=== PATIENT | female | born 1960 | race African-American/Black ===

== ENCOUNTER 2017-03-05 19:43 | Emergency (ER) | payer OTHER ==
[2017-03-05 20:05] VITALS: BP 146/76; PULSE 91; TEMP 98.3; BMI 31.4
--- NOTE | 2017-03-05 21:41 | PDOC ---
History of Present Illness - General Chief Complaint: Injury Stated Complaint: PAIN Time Seen by Provider: 03/05/17 21:10 History Source: Patient Exam Limitations: No Limitations - History of Present Illness Initial Comments: 03/05/17 21:41 Patient states fell last week and we injured right third digit. States as a child sustained a significant laceration and became infected with osteomyelitis. Patient has already deformity to that third digit. States last week when she fell became ecchymotic and swollen but did not feel needed medical attention. States has not resolved it came for evaluation tonight. Occurred: reports: last week Severity: reports: mild, moderate Pain Location: reports: upper extremity (rihgth 3rd digit) Modifying Factors: improves with: None Past History - Travel Traveled outside of the country in the last 30 days: No Close contact w/someone who was outside of country & ill: No - Past Medical History Allergies/Adverse Reactions: Allergies Allergy/AdvReac Type Severity Reaction Status Date / Time ketorolac tromethamine Allergy hives Unverified 07/20/14 12:11 [From Toradol] Home Medications: Ambulatory Orders Cetirizine HCl 10 mg PO ASDIR 09/14/14 Clotrimazole/Betamet Diprop [Lotrisone -] 15 gm TP ASDIR 09/14/14 Fluticasone Prop 0.05% Nasal [Flonase -] 1 spray NS BID #1 spray 09/14/14 Gabapentin 300 mg PO ASDIR capsule 09/14/14 Glipizide 5 gm MC ASDIR 09/14/14 Imipramine HCl [Tofranil] 10 mg PO ASDIR tablet 09/14/14 Levothyroxine Sodium 5 gm MC ASDIR 09/14/14 Lisinopril 2.5 mg PO DAILY #7 tablet 09/14/14 Morphine *Sr* [Ms Contin -] 15 mg PO ASDIR 09/14/14 Olopatadine HCl 0.1% Ophth Clemencia [Patanol (Nf)] 5 ml OP ASDIR 09/14/14 Pioglitazone HCl [Actos] 15 mg PO ASDIR tablet 09/14/14 Simvastatin [Zocor] 5 mg PO ASDIR tablet 09/14/14 Diabetes: Yes HTN: Yes - Psycho/Social/Smoking Cessation Hx Suicidal Ideation: No Smoking History: Never smoked Have you smoked in the past 12 months: No Information on smoking cessation initiated: No Hx Alcohol Use: No Drug/Substance Use Hx: No Review of Systems - Review of Systems Able to Perform ROS?: Yes Is the patient limited Venezuelan proficient: Yes Constitutional: Yes: See HPI. No: Symptoms Reported, Fever, Malaise HEENTM: No: Symptoms Reported Musculoskeletal: Yes: Symptoms Reported, See HPI, Joint Swelling, Muscle Pain, Joint Stiffness Integumentary: Yes: Symptoms Reported, See HPI, Bruising Neurological: No: Symptoms reported All Other Systems: Reviewed and Negative *Physical Exam - Vital Signs Last Vital Signs Temp Pulse Resp BP Pulse Ox 98.3 F 91 H 19 146/76 100 03/05/17 20:03 03/05/17 20:03 03/05/17 20:03 03/05/17 20:03 03/05/17 20:03 - Physical Exam General Appearance: Yes: Nourished, Appropriately Dressed, Mild Distress HEENT: positive: SUSIE, Normal ENT Inspection, TMs Normal, Pharynx Normal Neck: negative: Tender Musculoskeletal: positive: Normal Inspection Extremity: positive: Normal Capillary Refill, Tender, Swelling. negative: Normal Range of Motion (limited baseline is impaired, with tenderness and mild ecchymoses noted at the PIP joint. 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 NML intact, Fully Oriented, Alert, Normal Mood/ Affect, Normal Response, Motor Strength 5/5 ED Treatment Course - RADIOLOGY Radiology Studies Ordered: Category Date Time Status FINGER(S) RIGHT [RAD] Stat Radiology 03/05/17 21:32 Ordered Progress Note - Progress Note Progress Note: Avulsion fracture noted at PIP, finger splinted and recommended follow-up *DC/Admit/Observation/Transfer Diagnosis at time of Disposition: Sprain of finger, right Qualifiers: Encounter type: initial encounter Finger: middle finger Sprain of finger site: interphalangeal joint Qualified Code(s): S63.632A - Sprain of interphalangeal joint of right middle finger, initial encounter - Discharge Dispostion Disposition: HOME Condition at time of disposition: Stable Admit: No - Referrals Referrals: Kait Page [Primary Care Provider] - Real Gatica MD [Staff Physician] - - Patient Instructions Printed Discharge Instructions: DI for Finger Sprain Additional Instructions: Rest, ice to area on and off for 15 minutes 4-6 times a day Avoid heavy lifting or exercise until pain and swelling is resolved or until further directed Keep area highly elevated to reduce swelling Use splints/Lyndon wrap as directed Followup with orthopedist in one to 2 days if not improving, if significantly improved may wait one week for followup with orthopedist May use ibuprofen 2-200 mg tablets every 6 hours as needed for pain
== END 2017-03-05 22:02 | disposition home or self-care (01) ==
LOC: JERFT 19:43
DX: S63.632A Sprain of interphalangeal joint of right middle finger, initial encounter (principal); W19.XXXA Unspecified fall, initial encounter; Y93.89 Activity, other specified; Y92.89 Other specified places as the place of occurrence of the external cause; Y99.8 Other external cause status; I10 Essential (primary) hypertension; E11.9 Type 2 diabetes mellitus without complications; Z79.84 Long term (current) use of oral hypoglycemic drugs
CPT/HCPCS: 73140-TC-RT; 99281-25

== ENCOUNTER 2018-03-05 12:06 | Inpatient (IN) | payer OTHER ==
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
[2018-03-05] MEDS ORDERED: SODIUM CHLORIDE 1,000 ML IV SCH (12:15)
[2018-03-05 12:34] LABS: BASO % 0.4 % (0-2.0); EOS % 0.1 % (0-4.5); HEMATOCRIT 33.9 % (32.4-45.2); HEMOGLOBIN 11.3 GM/dL (10.7-15.3); LYMPH % 6.2 % (8-40); MCH 30.3 pg (25.7-33.7); MCHC 33.4 g/dl (32.0-36.0); MEAN CELL VOLUME 90.6 fl (80-96); MONO % 7.8 % (3.8-10.2); NEUT % 85.5 % (42.8-82.8); PLATELET COUNT 211 K/MM3 (134-434); RBC 3.75 M/mm3 (3.60-5.2); RDW 14.1 % (11.6-15.6); WHITE BLOOD COUNT 7.9 K/mm3 (4.0-10.0)
[2018-03-05 12:47] LABS: INR 1.1 (0.83-1.09); PROTHROMBIN TIME (PATIENT) 12.4 SEC (9.7-13.0)
[2018-03-05 12:55] LABS: ALBUMIN 4.1 g/dl (3.4-5.0); ANION GAP 6 MMOL/L (8-16); BLOOD UREA NITROGEN 18 mg/dL (7-18); CALCIUM 9.1 mg/dL (8.5-10.1); CHLORIDE 103 mmol/L (98-107); CHOLESTEROL 120 mg/dL (50-200); CO2 29 mmol/L (21-32); CREATININE 1.1 mg/dL (0.55-1.02); GLUCOSE,RANDOM 193 mg/dL (74-106); POTASSIUM 5.1 mmol/L (3.5-5.1); SGOT/AST 38 U/L (15-37); SGPT/ALT 29 U/L (12-78); SODIUM 138 mmol/L (136-145); TRIGLYCERIDES 80 mg/dL (35-160)
[2018-03-05 12:57] LABS: ALK PHOS 86 U/L (45-117); BILIRUBIN,TOTAL 0.4 mg/dL (0.2-1.0); HDL CHOLESTEROL 50 mg/dL (40-60); TOT PROT 7.9 g/dl (6.4-8.2)
[2018-03-05 13:11] LABS: URINE APPEARANCE CLEAR; URINE BILIRUBIN NEGATIVE (<2.0 mg/dL); URINE COLOR YELLOW; URINE GLUCOSE (UA) 2+ (NEGATIVE); URINE KETONE NEGATIVE (NEGATIVE); URINE LEUK ESTERASE NEGATIVE (NEGATIVE); URINE NITRITE NEGATIVE (NEGATIVE); URINE PROTEIN NEGATIVE (NEGATIVE); URINE UROBILINOGEN NEGATIVE mg/dL (0.2-1.0)
[2018-03-05 13:31] LABS: COCAINE, UR NEGATIVE ng/ml (CUTOFF=300); URINE AMPHETAMINES NEGATIVE ng/ml (CUTOFF=500); URINE BARBITURATES NEGATIVE ng/ml (CUTOFF=200); URINE BENZODIAZEPINES NEGATIVE ng/ml (CUTOFF=200)
[2018-03-05 13:32] LABS: METHADONE, UR NEGATIVE ng/ml (CUTOFF=300); OPIATES, URI POSITIVE ng/ml (CUTOFF=300); PHENCYCLIDINE,URINE POSITIVE ng/ml (CUTOFF=25)
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
[2018-03-05] MEDS ORDERED: INSULIN SLIDING SCALE (NOVOLOG) 1 VIAL SQ SCH (16:30)
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
[2018-03-05 17:48] LABS: ARTERIAL BLOOD GAS pH 7.27 (7.35-7.45)
[2018-03-05 17:49] LABS: ARTERIAL BLD GAS O2 SATURATION 96.2 % (90-98.9); ARTERIAL BLOOD GAS BASE EXCESS 2.2 meq/l (-2-2); ARTERIAL BLOOD GAS PO2 81.9 mmHg (80-100)
[2018-03-05 17:50] LABS: ALLENS TEST POSITIVE
[2018-03-05 17:52] LABS: ARTERIAL BLOOD GAS PCO2 65.6 mmHg (35-45)
[2018-03-05] MEDS: INSULIN SLIDING SCALE (NOVOLOG) 1 VIAL SQ SCH ×2 (18:21→21:27)
[2018-03-05] MEDS ORDERED: BACITRACIN 0.9 GM PACKET ONE (18:22)
[2018-03-05] MEDS: BACITRACIN 15 GM TUBE TOPICAL OINTMENT TP SCH (18:22)
[2018-03-05] MEDS ORDERED: DEXTROSE 5%-NORMAL SALINE 1,000 ML IV SCH (19:45)
[2018-03-05] MEDS: HEPARIN NA (PORCINE) 5,000 UNITS/ML 1ML VIAL SQ SCH (21:26)
[2018-03-05] MEDS: MUPIROCIN 2% TOPICAL OINTMENT FOR DECOLONIZATION NS SCH (21:27)
[2018-03-05] MEDS ORDERED: CHLORHEXIDINE GLUCONATE 4% CLEANSER FOR DECOLONIZATION TP SCH (22:00)
[2018-03-05] MEDS ORDERED: PNEUMOC 13-VAL CONJ-DIP CRM/PF 0.5 ML DISP.SYRIN IM ONE (22:19)
[2018-03-06] MEDS: HEPARIN NA (PORCINE) 5,000 UNITS/ML 1ML VIAL SQ SCH ×3 (06:24→21:30)
[2018-03-06] MEDS: INSULIN SLIDING SCALE (NOVOLOG) 1 VIAL SQ SCH ×4 (06:24→21:07)
[2018-03-06 06:38] LABS: BASO % 0.2 % (0-2.0); HEMATOCRIT 31.7 % (32.4-45.2); HEMOGLOBIN 10.5 GM/dL (10.7-15.3); LYMPH % 10.5 % (8-40); MCH 29.8 pg (25.7-33.7); MCHC 33.3 g/dl (32.0-36.0); MEAN CELL VOLUME 89.5 fl (80-96); MEAN PLT VOLUME 9.3 fl (7.5-11.1); MONO % 4.4 % (3.8-10.2); NEUT % 84.9 % (42.8-82.8); PLATELET COUNT 171 K/MM3 (134-434); RBC 3.54 M/mm3 (3.60-5.2); RDW 13.8 % (11.6-15.6); WHITE BLOOD COUNT 7.2 K/mm3 (4.0-10.0)
[2018-03-06 06:54] LABS: CHLORIDE 105 mmol/L (98-107); POTASSIUM 4.2 mmol/L (3.5-5.1); SODIUM 144 mmol/L (136-145)
[2018-03-06 07:01] LABS: ALBUMIN 3.7 g/dl (3.4-5.0); ALK PHOS 79 U/L (45-117); ANION GAP 9 MMOL/L (8-16); BILIRUBIN,TOTAL 0.2 mg/dL (0.2-1.0); BLOOD UREA NITROGEN 14 mg/dL (7-18); CALCIUM 8.9 mg/dL (8.5-10.1); CO2 30 mmol/L (21-32); CREATININE 0.6 mg/dL (0.55-1.02); GLUCOSE,RANDOM 165 mg/dL (74-106); MAGNESIUM 2.3 mg/dL (1.8-2.4); PHOSPHOROUS 3.4 mg/dL (2.5-4.9); SGOT/AST 44 U/L (15-37); SGPT/ALT 35 U/L (12-78); TOT PROT 7.2 g/dl (6.4-8.2)
--- NOTE | 2018-03-06 08:09 | PN ---
Physical Exam: SUBJECTIVE: Patient seen and examined this morning. Pt is now alert and oriented. When asked why she was here, she stated "because I tried to kill myself". The pt states she was trying to get to [facility], which is a facility for people losing their vision, but she was unable to get there, which is why she tried to harm herself. The nurse and 1:1 insurance coder state that she was cooperative and comfortable throughout the night. The pt drained ~150 cc yellow urine, no BM yet. Pt denies fevers/chills, nausea/ vomiting, chest pain, or SOB. She does say that she feels a bit dizzy and requested water. *Pt tolerated bedside 3 oz water evaluation this morning. Advanced diet to diabetic diet and canceled D5 solution. OBJECTIVE: Vital Signs Period Temp Pulse Resp BP Sys/Cerna Pulse Ox Last 24 Hr 98 F-98.7 F 80-114 11-23 106-154/59-106 91-100 GENERAL: The patient is awake, alert, and fully oriented, in no acute distress. Pt is lying comfortably and responding to questions appropriately (improved from yesterday). HEAD: Normal with no signs of trauma. EYES: L eye chronic constriction, minimal vision, extraocular movements intact, sclera anicteric, conjunctiva clear. No ptosis. ENT: External ears normal, nares patent, oropharynx clear without exudates, dry mucous membranes. NECK: Trachea midline, full range of motion, supple. LUNGS: Breath sounds equal, clear to auscultation bilaterally, no wheezes, no crackles, no accessory muscle use. HEART: Regular rate and rhythm, S1, S2 without murmur, rub or gallop. ABDOMEN: Soft, nontender, nondistended, normoactive bowel sounds, no guarding, no rebound, no hepatosplenomegaly, no masses. EXTREMITIES: 2+ pulses, warm, well-perfused, no edema. NEUROLOGICAL: Cranial nerves II through XII grossly intact. Normal speech, gait not observed. No facial droop, and pt can hold arms and legs with no drift. PSYCH: Pt tearful when describing events from yesterday. Pt seems remorseful and is understanding that her family has been present to see her. SKIN: Warm, dry, normal turgor, erythematous patch over R distal tibia, with fluid-filled blister. Bacitracin will be applied. Laboratory Results - last 24 hr 03/05/18 03/05/18 03/05/18 12:14 12:14 12:14 WBC 7.9 RBC 3.75 Hgb 11.3 Hct 33.9 MCV 90.6 MCH 30.3 MCHC 33.4 RDW 14.1 Plt Count 211 MPV 9.0 Absolute Neuts (auto) 6.8 Neutrophils % 85.5 H Lymphocytes % 6.2 L Monocytes % 7.8 Eosinophils % 0.1 Basophils % 0.4 Nucleated RBC % 0 PT with INR 12.40 INR 1.10 H Anticoagulation Therapy Puncture Site ABG pH ABG pCO2 at Pt Temp ABG pO2 at Pt Temp ABG HCO3 ABG O2 Sat (Measured) ABG O2 Content ABG Base Excess Gualberto Test Methemoglobin O2 Delivery Device Oxygen Flow Rate Vent Mode Vent Rate Mechanical Rate Pressure Support Vent Sodium Potassium Chloride Carbon Dioxide Anion Gap BUN Creatinine Creat Clearance w eGFR POC Glucometer Random Glucose Calcium Phosphorus Magnesium Total Bilirubin AST ALT Alkaline Phosphatase Creatine Kinase Creatine Kinase Index CK-MB (CK-2) Troponin I Total Protein Albumin Triglycerides Cholesterol Total LDL Cholesterol HDL Cholesterol TSH Serum , Qual Negative Urine Color Urine Appearance Urine pH Ur Specific Stewart Urine Protein Urine Glucose (UA) Urine Ketones Urine Blood Urine Nitrite Urine Bilirubin Urine Urobilinogen Ur Leukocyte Esterase Salicylates Opiates Screen Methadone Screen Acetaminophen Barbiturate Screen Phencyclidine Screen Ur Amphetamines Screen MDMA (Ecstasy) Screen Benzodiazepines Screen Cocaine Screen U Marijuana (THC) Screen Acetone, Qual Blood Type Antibody Screen 03/05/18 03/05/18 03/05/18 12:14 12:20 12:57 WBC RBC Hgb Hct MCV MCH MCHC RDW Plt Count MPV Absolute Neuts (auto) Neutrophils % Lymphocytes % Monocytes % Eosinophils % Basophils % Nucleated RBC % PT with INR INR Anticoagulation Therapy Puncture Site ABG pH ABG pCO2 at Pt Temp ABG pO2 at Pt Temp ABG HCO3 ABG O2 Sat (Measured) ABG O2 Content ABG Base Excess Gualberto Test Methemoglobin O2 Delivery Device Oxygen Flow Rate Vent Mode Vent Rate Mechanical Rate Pressure Support Vent Sodium 138 Potassium 5.1 Chloride 103 Carbon Dioxide 29 Anion Gap 6 L BUN 18 Creatinine 1.1 H Creat Clearance w eGFR 51.57 POC Glucometer Random Glucose 193 H Calcium 9.1 Phosphorus Magnesium Total Bilirubin 0.4 AST 38 H ALT 29 Alkaline Phosphatase 86 Creatine Kinase 476 H Creatine Kinase Index 1.3 CK-MB (CK-2) 6.55 H Troponin I 0.03 Total Protein 7.9 Albumin 4.1 Triglycerides 80 Cholesterol 120 Total LDL Cholesterol 60 HDL Cholesterol 50 TSH 0.32 L Serum , Qual Urine Color Yellow Urine Appearance Clear Urine pH 5.0 Ur Specific Stewart 1.012 Urine Protein Negative Urine Glucose (UA) 2+ H Urine Ketones Negative Urine Blood Negative Urine Nitrite Negative Urine Bilirubin Negative Urine Urobilinogen Negative Ur Leukocyte Esterase Negative Salicylates < 4.0 Opiates Screen Methadone Screen Acetaminophen < 2.0 Barbiturate Screen Phencyclidine Screen Ur Amphetamines Screen MDMA (Ecstasy) Screen Benzodiazepines Screen Cocaine Screen U Marijuana (THC) Screen Acetone, Qual Trace H Blood Type Antibody Screen 03/05/18 03/05/18 03/05/18 12:57 17:37 20:40 WBC RBC Hgb Hct MCV MCH MCHC RDW Plt Count MPV Absolute Neuts (auto) Neutrophils % Lymphocytes % Monocytes % Eosinophils % Basophils % Nucleated RBC % PT with INR INR Anticoagulation Therapy No Result Required. Puncture Site Right radial ABG pH 7.27 L ABG pCO2 at Pt Temp 65.6 H* ABG pO2 at Pt Temp 81.9 ABG HCO3 29.7 H ABG O2 Sat (Measured) 96.2 ABG O2 Content No Result Required. ABG Base Excess 2.2 H Gualberto Test Positive Methemoglobin 1.8 H O2 Delivery Device No Result Required. Oxygen Flow Rate Yes Vent Mode No Result Required. Vent Rate No Result Required. Mechanical Rate No Result Required. Pressure Support Vent No Result Required. Sodium Potassium Chloride Carbon Dioxide Anion Gap BUN Creatinine Creat Clearance w eGFR POC Glucometer Random Glucose Calcium Phosphorus Magnesium Total Bilirubin AST ALT Alkaline Phosphatase Creatine Kinase Creatine Kinase Index CK-MB (CK-2) Troponin I Total Protein Albumin Triglycerides Cholesterol Total LDL Cholesterol HDL Cholesterol TSH Serum , Qual Urine Color Urine Appearance Urine pH Ur Specific Stewart Urine Protein Urine Glucose (UA) Urine Ketones Urine Blood Urine Nitrite Urine Bilirubin Urine Urobilinogen Ur Leukocyte Esterase Salicylates Opiates Screen Positive Methadone Screen Negative Acetaminophen Barbiturate Screen Negative Phencyclidine Screen Positive Ur Amphetamines Screen Negative MDMA (Ecstasy) Screen Negative Benzodiazepines Screen Negative Cocaine Screen Negative U Marijuana (THC) Screen Negative Acetone, Qual Blood Type B POSITIVE Antibody Screen Negative 03/05/18 03/06/18 03/06/18 20:55 05:30 05:30 WBC 7.2 RBC 3.54 L Hgb 10.5 L Hct 31.7 L MCV 89.5 MCH 29.8 MCHC 33.3 RDW 13.8 Plt Count 171 MPV 9.3 Absolute Neuts (auto) 6.1 Neutrophils % 84.9 H Lymphocytes % 10.5 D Monocytes % 4.4 Eosinophils % 0.0 D Basophils % 0.2 Nucleated RBC % 0 PT with INR INR Anticoagulation Therapy Puncture Site ABG pH ABG pCO2 at Pt Temp ABG pO2 at Pt Temp ABG HCO3 ABG O2 Sat (Measured) ABG O2 Content ABG Base Excess Gualberto Test Methemoglobin O2 Delivery Device Oxygen Flow Rate Vent Mode Vent Rate Mechanical Rate Pressure Support Vent Sodium 144 Potassium 4.2 Chloride 105 Carbon Dioxide 30 Anion Gap 9 BUN 14 Creatinine 0.6 Creat Clearance w eGFR > 60 POC Glucometer 101.98935 Random Glucose 165 H Calcium 8.9 Phosphorus 3.4 Magnesium 2.3 Total Bilirubin 0.2 AST 44 H ALT 35 Alkaline Phosphatase 79 Creatine Kinase Creatine Kinase Index CK-MB (CK-2) Troponin I Total Protein 7.2 Albumin 3.7 Triglycerides Cholesterol Total LDL Cholesterol HDL Cholesterol TSH Serum , Qual Urine Color Urine Appearance Urine pH Ur Specific Stewart Urine Protein Urine Glucose (UA) Urine Ketones Urine Blood Urine Nitrite Urine Bilirubin Urine Urobilinogen Ur Leukocyte Esterase Salicylates Opiates Screen Methadone Screen Acetaminophen Barbiturate Screen Phencyclidine Screen Ur Amphetamines Screen MDMA (Ecstasy) Screen Benzodiazepines Screen Cocaine Screen U Marijuana (THC) Screen Acetone, Qual Blood Type Antibody Screen Active Medications Generic Name Dose Route Start Last Admin Trade Name Freq PRN Reason Stop Dose Admin Bacitracin 1 applic 03/05/18 16:45 03/05/18 18:22 Bacitracin - TP 1 applic DAILY SARTHAK Administration Chlorhexidine Gluconate 1 applic 03/05/18 22:00 03/05/18 21:32 Hibiclens For Decolonization - TP 1 applic HS SARTHAK Administration Heparin Sodium (Porcine) 5,000 unit 03/05/18 22:00 03/06/18 06:24 Heparin - SQ 5,000 unit TID SARTHAK Administration Dextrose/Sodium Chloride 1,000 mls @ 83 mls/hr 03/05/18 19:45 D5-Ns - IV ASDIR SARTHAK Insulin Aspart 1 vial 03/05/18 16:45 03/06/18 06:24 Novolog Vial Sliding Scale - SQ 2 units ACHS SARTHAK Administration Protocol Mupirocin 1 applic 03/05/18 22:00 03/05/18 21:27 Bactroban Ointment (For Decolonization) - NS 03/10/18 21:59 1 applic BID SARTHAK Administration Pneumococcal Polyvalent Vaccine 0.5 ml 03/06/18 09:00 Pneumovax - IM 03/06/18 09:01 .ONCE ONE ASSESSMENT/PLAN: Pt is a 57 yo F, with PMH of DM, HTN, Hypothyroidism, PTSD, and congenital blindness/cataracts, who presents to the ER via EMS with AMS 2/2 to drug overdose (benadryl, MS contin, hydroxyzine). 1. Neuro -AMS: continue to monitor in the ICU. Poison control was called, physostigmine was not administered. -Drug overdose: will monitor pt with 1:1 supervision. Continue to monitor CBC/CMP. Trop negative. CK 476, CKMB 6.5 Pt was on 3L NC, have titrated to 1.5 L, pt tolerating well. Will continue to wean. Dr. Stapleton (psych) to evaluate today, he requests keeping pt 1:1 observation as she expressed that she tried to hurt herself. -PTSD Pt takes home meds for depression/PTSD: venlafaxine 37.5, 150; Imipramine 50. Hold medications for now. Pt fights with partner. In the unit, her partner has been overbearing and short with staff members. 2. CVS -HTN: hold home medications for now. Pt BP 141/69 currently. Home meds: Aspirin 81, Lisinopril 5, Simvastatin 10 -Trop uptrending today (initial .03, today .16 and .18), CK 1292, CKMB 11.87. Will continue to trend q6hrs and repeat ECGs. -- Likely rhabdo from OD. Starting NS @125/hr until trop/cardiac profile down-trending ECG 03/05: NSR, 96 bpm, no prolonged QT Repeat ECG 03/06:NSR, 90 bpm, no prolonged QT; slight elevation in V2 compared to yesterday ECG, no ST elevations in contiguous leads, no ST depressions or reciprocal change. Continuous cardiac monitoring. Paged Dr. Montana for consult. Dr. Montana requested Echo and he will follow the pt. 3. Endocrine -DM: will start sliding scale insulin. Pt was NPO as she was currently altered. *pt tolerated 3oz bedside water evaluation with no difficulty or signs of choking. Pt has no altered or slurred speech and is A/O x4. Pt switched to diabetic diet. Home meds: Pioglitazone 30, Glipizide 5 BID, hold for now. Ordered sliding scale insulin QACHS. D5 solution canceled, as pt now tolerating PO. BGM Q4hr HgbA1C ordered, pending results. -Hypothyroidism Home meds: Levothyroxine 125 mcg, hold for now. 4. -Pt has urinary retention - Mooney catheter placed, pt has been draining yellow urine. 5. MSK/Skin -Pt had erythematous patch with blister and abrasions over R ankle. Bacitracin ointment will be applied (from shoes, or possible bite or burn liborio?). Pt does not recall where this injury came from. The pts son states she had this injury when she arrived at the hospital. 6. Prophylaxis B/l SCD Heparin TID Problem List - Problems (1) Anticholinergic drug overdose Code(s): T44.3X1A - POISONING BY OTH PARASYMPATH AND SPASMOLYTICS, ACC, INIT (2) Diabetes mellitus Code(s): E11.9 - TYPE 2 DIABETES MELLITUS WITHOUT COMPLICATIONS (3) Hypothyroidism Code(s): E03.9 - HYPOTHYROIDISM, UNSPECIFIED (4) Altered mental status Code(s): R41.82 - ALTERED MENTAL STATUS, UNSPECIFIED Visit type - Emergency Visit Emergency Visit: Yes ED Registration Date: 03/05/18 Care time: The patient presented to the Emergency Department on the above date and was hospitalized for further evaluation of their emergent condition. - New Patient This patient is new to me today: No - Critical Care Critical Care patient: Yes Total Critical Care Time (in minutes): 40 Critical Care Statement: The care of this patient involved high complexity decision making to prevent further life threatening deterioration of the patient 's condition and/or to evaluate & treat vital organ system(s) failure or risk of failure. - Discharge Referral Referred to [facility] Med [facility] Yes
--- NOTE | 2018-03-06 08:57 | PN ---
Progress Note, Physician - Current Medication List Current Medications: Active Medications Bacitracin (Bacitracin -) 1 applic TP DAILY SARTHAK Last Admin: 03/05/18 18:22 Dose: 1 applic Chlorhexidine Gluconate (Hibiclens For Decolonization -) 1 applic TP HS [facility] Last Admin: 03/05/18 21:32 Dose: 1 applic Heparin Sodium (Porcine) (Heparin -) 5,000 unit SQ TID SARTHAK Last Admin: 03/06/18 06:24 Dose: 5,000 unit Insulin Aspart (Novolog Vial Sliding Scale -) 1 vial SQ ACHS [facility]; Protocol Last Admin: 03/06/18 06:24 Dose: 2 units Mupirocin (Bactroban Ointment (For Decolonization) -) 1 applic NS BID [facility] Stop: 03/10/18 21:59 Last Admin: 03/05/18 21:27 Dose: 1 applic Pneumococcal Polyvalent Vaccine (Pneumovax -) 0.5 ml IM .ONCE ONE Stop: 03/06/18 09:01 - Objective Vital Signs: Vital Signs Temperature 98.2 F 03/06/18 05:40 Pulse Rate 88 03/06/18 05:40 Respiratory Rate 18 03/06/18 05:40 Blood Pressure 132/80 03/06/18 05:40 O2 Sat by Pulse Oximetry (%) 100 03/05/18 21:58 Labs: CBC, BMP 03/06/18 05:30 03/06/18 05:30 INR, PTT INR 1.10 (0.83-1.09) H 03/05/18 12:14 Problem List - Problems (1) Suicidal overdose Assessment/Plan: . Drug overdose: will monitor pt with 1:1 supervision. Repeat ECG psychiatry and psychology consult Code(s): T50.902A - POISONING BY UNSP DRUG/MEDS/BIOL SUBST, SELF-HARM, INIT (2) Altered mental status Assessment/Plan: -As above Code(s): R41.82 - ALTERED MENTAL STATUS, UNSPECIFIED (3) Diabetes mellitus Assessment/Plan: - sliding scale insulin. BGM Q4hr Code(s): E11.9 - TYPE 2 DIABETES MELLITUS WITHOUT COMPLICATIONS (4) Hypothyroidism Assessment/Plan: -Decrease synthroid to 112 Code(s): E03.9 - HYPOTHYROIDISM, UNSPECIFIED (5) Chronic bilateral low back pain Assessment/Plan: -Neuro consult Code(s): M54.5 - LOW BACK PAIN; G89.29 - OTHER CHRONIC PAIN
[2018-03-06] MEDS ORDERED: PNEUMOCOCCAL 23 VACCINE 0.5 ML VIAL IM ONE (09:00)
[2018-03-06] MEDS ORDERED: LISINOPRIL 5 MG TABLET (FP) PO SCH (10:00)
[2018-03-06] MEDS ORDERED: VENLAFAXINE HCL 75 MG E.R. CAPSULES (FP) PO SCH (10:15)
[2018-03-06] MEDS: BACITRACIN 15 GM TUBE TOPICAL OINTMENT TP SCH (10:29)
[2018-03-06] MEDS: MUPIROCIN 2% TOPICAL OINTMENT FOR DECOLONIZATION NS SCH (10:38)
--- NOTE | 2018-03-06 11:48 | PN ---
Teaching Attending Note Name of Resident: Krista Hayden ATTENDING PHYSICIAN STATEMENT I saw and evaluated the patient. I reviewed the resident's note and discussed the case with the resident. I agree with the resident's findings and plan as documented. SUBJECTIVE: Pt seen and examined in the ICU. No events overnight. Mental status at baseline. No nausea, vomiting, shortness of breath or chest pain. OBJECTIVE: Vital Signs Period Temp Pulse Resp BP Sys/Cerna Pulse Ox Last 24 Hr 98 F-98.7 F 80-114 11-23 106-154/59-106 91-100 Intake & Output 03/03/18 03/04/18 03/05/18 03/06/18 23:59 23:59 23:59 23:59 Output Total 900 500 Balance -900 -500 Weight 84.6 kg Gen: NAD at rest Heart: RRR Lung: decreased breath sounds at the bases Abd: soft, nontender Ext: no edema CBC, BMP 03/06/18 05:30 03/06/18 05:30 Active Medications Atorvastatin Calcium (Lipitor -) 10 mg PO [facility] Bacitracin (Bacitracin -) 1 applic TP DAILY [facility] Last Admin: 03/06/18 10:29 Dose: 1 applic Chlorhexidine Gluconate (Hibiclens For Decolonization -) 1 applic TP HS [facility] Last Admin: 03/05/18 21:32 Dose: 1 applic Gabapentin (Neurontin -) 300 mg PO TID [facility] Heparin Sodium (Porcine) (Heparin -) 5,000 unit SQ TID [facility] Last Admin: 03/06/18 06:24 Dose: 5,000 unit Insulin Aspart (Novolog Vial Sliding Scale -) 1 vial SQ [facility]; Protocol Last Admin: 03/06/18 06:24 Dose: 2 units Lisinopril (Prinivil) 5 mg PO DAILY [facility] Last Admin: 03/06/18 10:30 Dose: 5 mg Mupirocin (Bactroban Ointment (For Decolonization) -) 1 applic NS BID [facility] Stop: 03/10/18 21:59 Last Admin: 03/06/18 10:38 Dose: 1 applic Non-Formulary Medication (Imipramine Hcl [Imipramine Hcl]) 50 mg PO DAILY [facility] Venlafaxine HCl (Effexor Xr -) 150 mg PO DAILY [facility] Last Admin: 03/06/18 10:30 Dose: 150 mg ASSESSMENT AND PLAN: Suicide Attempt/Drug Overdose Altered Mental Status Acute Hypercapneic Respiratory Failure improved HTN DM Hypothyroidism - continue 1:1 observation - psych eval - DVT prophylaxis - can monitor on floor
[2018-03-06] MEDS: SODIUM CHLORIDE 1,000 ML IV SCH (13:30)
--- NOTE | 2018-03-06 13:42 | EKG ---
Test Reason : Blood Pressure : / mmHG Vent. Rate : 090 BPM Atrial Rate : 090 BPM P-R Int : 176 ms QRS Dur : 096 ms QT Int : 400 ms P-R-T Axes : 061 008 035 degrees QTc Int : 489 ms NORMAL SINUS RHYTHM SEPTAL INFARCT , AGE UNDETERMINED ABNORMAL ECG WHEN COMPARED WITH ECG OF 05-MAR-2018 12:38, NO SIGNIFICANT CHANGE WAS FOUND Confirmed by RAHEL OGDEN MD ([id number]) on 03/06/2018 1:42:14 PM Referred By: NADYA DIANE DR Confirmed By:RAHEL OGDEN MD
--- NOTE | 2018-03-06 13:46 | EKG ---
Test Reason : Blood Pressure : / mmHG Vent. Rate : 096 BPM Atrial Rate : 096 BPM P-R Int : 178 ms QRS Dur : 092 ms QT Int : 364 ms P-R-T Axes : 048 019 034 degrees QTc Int : 459 ms NORMAL SINUS RHYTHM NORMAL ECG WHEN COMPARED WITH ECG OF 15-FEB-2009 12:40, NO SIGNIFICANT CHANGE WAS FOUND Confirmed by RAHEL OGDEN MD ([id number]) on 03/06/2018 1:46:20 PM Referred By: Confirmed By:RAHEL OGDEN MD
--- NOTE | 2018-03-06 13:47 | CON.PSY ---
Psychiatry Consult Chief Complaint: I am, sucidal, I have lot of stuff jones[ppening to me> I am going blind. I need Back Surgery. I took pills. Symptoms: reports: Depressed Mood, Suicidality - Previous Psychiatric Treatment Outpatient: Less than 6 mos ago Inpatient: None - Previous Substance Abuse Treatment Outpatient: None Inpatient: None - Reason for Previous Treatment Reason for Previous Treatment: Major Depression, Heroin or Other Narcotics, Prescription Drug - Current Medications Current Medications: Active Medications Aspirin (Asa -) 325 mg PO DAILY [facility] Atorvastatin Calcium (Lipitor -) 10 mg PO HS [facility] Bacitracin (Bacitracin -) 1 applic TP DAILY [facility] Last Admin: 03/06/18 10:29 Dose: 1 applic Chlorhexidine Gluconate (Hibiclens For Decolonization -) 1 applic TP HS [facility] Last Admin: 03/05/18 21:32 Dose: 1 applic Gabapentin (Neurontin -) 300 mg PO TID [facility] Heparin Sodium (Porcine) (Heparin -) 5,000 unit SQ TID [facility] Last Admin: 03/06/18 06:24 Dose: 5,000 unit Sodium Chloride (Normal Saline -) 1,000 mls @ 125 mls/hr IV ASDIR [facility] Insulin Aspart (Novolog Vial Sliding Scale -) 1 vial SQ ACHS [facility]; Protocol Last Admin: 03/06/18 12:47 Dose: Not Given Lisinopril (Prinivil) 5 mg PO DAILY [facility] Last Admin: 03/06/18 10:30 Dose: 5 mg Mupirocin (Bactroban Ointment (For Decolonization) -) 1 applic NS BID [facility] Stop: 03/10/18 21:59 Last Admin: 03/06/18 10:38 Dose: 1 applic Non-Formulary Medication (Imipramine Hcl [Imipramine Hcl]) 50 mg PO DAILY [facility] Venlafaxine HCl (Effexor Xr -) 150 mg PO DAILY [facility] Last Admin: 03/06/18 10:30 Dose: 150 mg - Allergies Allergies: Allergies Allergy/AdvReac Type Severity Reaction Status Date / Time ketorolac tromethamine Allergy hives Verified 03/05/18 13:52 [From Toradol] Penicillins Allergy Verified 03/05/18 13:52 - Current Living Status Usual Living Arrangement: With Child - Current Mental Status Evaluation Appearance: Well Groomed Attitude: Cooperative - Affect Affect: Constrictive Appropriateness: Appropriate to Content - Mood Mood: Depressed - Speech/Language Expressive: Coherent - Psychomotor Activity Psychomotor Activity: Hyperactive - Thought Process Thought Process: Intact - Thought Content Hallucinations: Absent Delusions: Absent - Self Perception Self Perception: No Impairment - Cognition Attention: Alert Orientation: Time Memory, Immediate Recall: Intact Memory, Short Term: 3/3 Memory, Remote with Promptin/3 - Concentration Serial Sevens Intact: Yes Simple Calculations Intact: Yes - Abstraction Proverb Interpretation: Intact Judgement: Minimally Impaired - Insight Insight: Intact - Impulse Control Impulse Control: Minimally Impaired - Suicidal Ideation Suicidal Ideation: No - Homicidal Ideation Homicidal Ideation: No Assessment/Plan 1) continue with 1:! 2) Continue with Effexor anti depressant. 3) Might need In patient Psych Admission when medically clear.
[2018-03-06] MEDS ORDERED: GABAPENTIN 300 MG CAPSULE (FP) PO SCH (14:00)
[2018-03-06] MEDS: ASPIRIN 325 MG TABLET PO SCH (15:19)
--- NOTE | 2018-03-06 15:29 | CON.CARD ---
Consult Consult Specialty:: Cardiology Referred by:: ICU Reason for Consultation:: positive troponin - History of Present Illness Chief Complaint: overdose History of Present Illness: 57F h/o DM, HTN, Hypothyroidism, PTSD, and congenital blindness/cataract p/w unresponsive, drug overdose. She was found with empty MS contin, benadryl, and hydroxyzine bottles. CT head neg for acute process, psych consulted, trop 0.03- >0.18->0.19, CK 1292, CKMB 9.52 with index 0.7. Patient denies chest pain, dyspnea, orthopnea, PND, edema. denies cardiac history, says she was being worked up for sleep apnea in the last few weeks, no prior cardiac testing - Past Medical History ...: No Psych: Yes: Depression Endocrine: Yes: Diabetes Mellitus - Alcohol/Substance Use Hx Alcohol Use: No - Smoking History Smoking history: Never smoked Have you smoked in the past 12 months: No - Social History Usual Living Arrangement: With Child Home Medications - Allergies Allergies/Adverse Reactions: Allergies Allergy/AdvReac Type Severity Reaction Status Date / Time ketorolac tromethamine Allergy hives Verified 03/05/18 13:52 [From Toradol] Penicillins Allergy Verified 03/05/18 13:52 - Home Medications Home Medications: Ambulatory Orders Acetaminophen/Caffeine [Tension Headache Caplet] 1 each PO ASDIR 03/05/18 Aspirin [Aspirin EC] 81 mg PO DAILY 03/05/18 Diphenhydramine [Benadryl -] 25 mg PO ASDIR 03/05/18 Gabapentin [Neurontin] 300 mg PO TID 03/05/18 Glipizide 5 mg PO BID 03/05/18 Hydroxyzine HCl 50 mg PO HS 03/05/18 Ibuprofen [Motrin -] 600 mg PO TID PRN 03/05/18 Imipramine HCl 50 mg PO DAILY 03/05/18 Levothyroxine [Synthroid -] 125 mcg PO DAILY 03/05/18 Lisinopril [Zestril] 5 mg PO DAILY 03/05/18 Morphine *Sr* [Ms Contin -] 60 mg PO HS 03/05/18 Morphine *Sr* [Ms Contin -] 120 mg PO AM 03/05/18 Pioglitazone HCl [Actos] 30 mg PO DAILY 03/05/18 Simvastatin 10 mg PO HS 03/05/18 Venlafaxine HCl ER [Effexor Xr -] 37.5 mg PO DAILY 03/05/18 Venlafaxine HCl ER [Effexor Xr -] 150 mg PO DAILY 03/05/18 Family Disease History - Family Disease History Family History: Unremarkable Review of Systems - Review of Systems Constitutional: reports: No Symptoms Eyes: reports: No Symptoms HENT: reports: No Symptoms Neck: reports: No Symptoms Cardiovascular: reports: No Symptoms Respiratory: reports: No Symptoms Gastrointestinal: reports: No Symptoms Genitourinary: reports: No Symptoms Musculoskeletal: reports: No Symptoms Integumentary: reports: No Symptoms Neurological: reports: No Symptoms Endocrine: reports: No Symptoms Hematology/Lymphatic: reports: No Symptoms Psychiatric: reports: No Symptoms Vital Signs: Vital Signs Temperature 98.5 F 03/06/18 10:00 Pulse Rate 97 H 03/06/18 12:00 Respiratory Rate 14 03/06/18 12:00 Blood Pressure 143/84 03/06/18 12:00 O2 Sat by Pulse Oximetry (%) 100 03/05/18 21:58 Constitutional: Yes: Well Nourished, No Distress, Calm Eyes: Yes: Conjunctiva Clear, EOM Intact HENT: Yes: Atraumatic, Normocephalic Neck: Yes: Supple, Trachea Midline Respiratory: Yes: Regular, Other (poor effort, ausculated anteriorly due to restraints) Gastrointestinal: Yes: Normal Bowel Sounds, Soft Renal/: Yes: WNL Cardiovascular: Yes: Regular Rate and Rhythm JVD: No Heart Sounds: Yes: S1, S2 Musculoskeletal: Yes: Other (restraints on upper ext) Extremities: Yes: WNL Edema: No Peripheral Pulses: 2+ Left Doralis Pedis, 2+ Right Dorsalis Pedis Integumentary: Yes: WNL Neurological: Yes: Alert, Oriented Psychiatric: Yes: Alert, Oriented - Other Data Labs, Other Data: CBC, BMP 03/06/18 05:30 03/06/18 05:30 INR, PTT INR 1.10 (0.83-1.09) H 03/05/18 12:14 Troponin, BNP 03/06/18 03/06/18 05:30 11:35 Troponin I 0.16 H 0.18 H Troponin, BNP 03/06/18 03/06/18 05:30 11:35 Troponin I 0.16 H 0.18 H Assessment/Plan EKG sinus rhythm, QTc 489, no ischemic changes, stable on follow up EKG CXR no acute process tele: sinus rhythm with episodes of sinus tachycardia 120s 57F h/o DM, HTN, Hypothyroidism, PTSD, and congenital blindness/cataracts p/w AMS 2/2 to drug overdose (benadryl, MS contin, hydroxyzine). + troponin - mildly elevated with plateau, likely demand in setting of overdose and metabolic abnormalities - CKMB likely elevated in setting of rhabdo, total CK elevation, index wnl - echo pending Drug overdose, unresponsiveness - took MS contin, hydroxyzine, benadryl - psych consulted - monitor EKG for QT prolongation, serial EKGs - monitor on tele HTN - stable on lisinopril PTSD - manag per psych and primary team DM - manage per pmd hypothyroidism - on levothyroxine, TSH 0.32
[2018-03-06] MEDS ORDERED: IMIPRAMINE HCL 25 MG TABLET PO SCH (15:30)
--- NOTE | 2018-03-06 20:19 | CON.PSL ---
Psychology Consult Consult Specialty:: Clinical Psychology Reason for Consultation:: Pt. referred for depression, anxiety and suicidal attempt. History Provided By: Patient, Family Member, Significant Other Limitations to Obtaining History: No Limitations Current Medications: Active Medications Aspirin (Asa -) 325 mg PO DAILY [facility] Last Admin: 03/06/18 15:19 Dose: 325 mg Atorvastatin Calcium (Lipitor -) 10 mg PO HS [facility] Bacitracin (Bacitracin -) 1 applic TP DAILY [facility] Gabapentin (Neurontin -) 300 mg PO TID [facility] Heparin Sodium (Porcine) (Heparin -) 5,000 unit SQ TID [facility] Sodium Chloride (Normal Saline -) 1,000 mls @ 125 mls/hr IV ASDIR [facility] Last Admin: 03/06/18 13:30 Dose: 125 mls/hr Insulin Aspart (Novolog Vial Sliding Scale -) 1 vial SQ ACHS [facility]; Protocol Lisinopril (Prinivil) 5 mg PO DAILY [facility] Mupirocin (Bactroban Ointment (For Decolonization) -) 1 applic NS BID [facility] Stop: 03/10/18 21:59 Non-Formulary Medication (Imipramine Hcl [Imipramine Hcl]) 50 mg PO DAILY [facility] Venlafaxine HCl (Effexor Xr -) 150 mg PO DAILY [facility] Allergies: Allergies Allergy/AdvReac Type Severity Reaction Status Date / Time ketorolac tromethamine Allergy hives Verified 03/05/18 13:52 [From Toradol] Penicillins Allergy Verified 03/05/18 13:52 Does patient have pain?: Yes Pain Location Body Site: Back Pain Description: Non-Descriptive Hx Alcohol Use: Yes Hx Substance Use: No Substance Use Type: Alcohol Hx Substance Use Treatment: Yes Current Medical Exam-Psy Attention: Alert Orientation: Time, Person, Place Immediate Term Memory: 3 Expressive: Coherent Receptive: Age Appropriate Comprehension of Spoken Words Hallucinations: Absent Thought Process: Intact Depression: Severe Hopelessness: No Loss of Interest: No Anxiety Level: Severe Danger to Self and Others: No Sleep: Poorly, Difficulty falling asleep Appetite: Good (Generally she states it is good except today.) Serial Sevens Intact: No (Unable to spell world backwards as well.) Repeats 3 words told earlier: /3 Support System: Significant Other, Child/Children, Family Problem List - Problem (1) Major depression, recurrent, chronic Code(s): F33.9 - MAJOR DEPRESSIVE DISORDER, RECURRENT, UNSPECIFIED (2) Anxiety about health Code(s): F41.8 - OTHER SPECIFIED ANXIETY DISORDERS Assessment/Plan The patient was very upset that she cannot have her back surgery until her visual problems are addressed and corrected. In addition, she appeared to be severely agitated and both she and her family are concerned about the blisters on both of her feet. Her legs were shaking throughout the interview. The patient and her family would like for her to receive an anti-anxiety medication. Perhaps Dr. Stapleton can consider the appropriateness of such a treatment inspite of her past HX of alcoholism and suicidal attempt. The patient in the mean time was taught deep breathing exercises to help her become more relaxed. The patient is spiritual and would like a pastoral care consultation. Thank you for your referral.
[2018-03-06] MEDS: ACETAMINOPHEN 325 MG TABLET (FP) PO PRN (21:00)
[2018-03-06] MEDS: GABAPENTIN 300 MG CAPSULE (FP) PO SCH (21:01)
[2018-03-06] MEDS: ATORVASTATIN CA 10 MG TABLET (FP) PO SCH (21:02)
[2018-03-06] MEDS ORDERED: MUPIROCIN 2% TOPICAL OINTMENT FOR DECOLONIZATION NS SCH (22:00)
[2018-03-06] MEDS ORDERED: ATORVASTATIN CA 10 MG TABLET (FP) PO SCH (22:00)
[2018-03-06] MEDS ORDERED: CHLORHEXIDINE GLUCONATE 4% CLEANSER FOR DECOLONIZATION TP SCH (22:00)
[2018-03-07] MEDS ORDERED: MELATONIN 5 MG TABLETS PO ONE (04:45)
--- NOTE | 2018-03-07 04:46 | HOSP ---
Subjective - Review of Symptoms Events since last encounter: Hospitalist Encounter Notified by RN that the patient is requesting to see someone because she is feeling anxious Subjective: Arrived to bedside, patient is on 1:1 observation, awake, alert, oriented, and restless. Patient states" I cannot sleep because I'm afraid Ill lose my legs. On exam blisters noted to RLE and R- heel, LLE. Plan: Melatonin po x1 Continue with current regimen Other Systems: Psychological: Anxious, Restless Physical Examination Vital Signs: Vital Signs Temperature 98.6 F 03/06/18 18:00 Pulse Rate 96 H 03/06/18 18:00 Respiratory Rate 16 03/06/18 18:00 Blood Pressure 119/71 03/06/18 18:00 O2 Sat by Pulse Oximetry (%) 100 03/05/18 21:58 Constitutional: Yes: Well Nourished, Anxious, Obese Eyes: Yes: WNL, Conjunctiva Clear, PERRL HENT: Yes: WNL, Atraumatic, Normocephalic Neck: Yes: WNL, Supple, Trachea Midline Cardiovascular: Yes: WNL, Regular Rate and Rhythm, S1, S2 Respiratory: Yes: WNL, Regular, CTA Bilaterally Gastrointestinal: Yes: WNL, Normal Bowel Sounds, Soft, Abdomen, Obese Renal/: Yes: WNL Edema: No Peripheral Pulses WNL: Yes Integumentary: Yes: Other (blisters to LLE, RLE, R- Heel) Neurological: Yes: Alert, Oriented, Cran Nerves II-XII Intact ...Motor Strength: WNL Psychiatric: Yes: Alert, Oriented, Suicidal Ideation Labs: CBC, BMP 03/06/18 05:30 03/06/18 05:30 Laboratory Results - last 24 hr 03/05/18 03/05/18 03/06/18 18:10 18:20 05:30 WBC RBC Hgb Hct MCV MCH MCHC RDW Plt Count MPV Absolute Neuts (auto) Neutrophils % Lymphocytes % Monocytes % Eosinophils % Basophils % Nucleated RBC % Sodium Potassium Chloride Carbon Dioxide Anion Gap BUN Creatinine Creat Clearance w eGFR POC Glucometer 58.47089 63.80227 Random Glucose Hemoglobin A1c % 5.4 Calcium Phosphorus Magnesium Total Bilirubin AST ALT Alkaline Phosphatase Creatine Kinase Creatine Kinase Index CK-MB (CK-2) Troponin I Total Protein Albumin 03/06/18 03/06/1818 05:30 05:30 05:51 WBC 7.2 RBC 3.54 L Hgb 10.5 L Hct 31.7 L MCV 89.5 MCH 29.8 MCHC 33.3 RDW 13.8 Plt Count 171 MPV 9.3 Absolute Neuts (auto) 6.1 Neutrophils % 84.9 H Lymphocytes % 10.5 D Monocytes % 4.4 Eosinophils % 0.0 D Basophils % 0.2 Nucleated RBC % 0 Sodium 144 Potassium 4.2 Chloride 105 Carbon Dioxide 30 Anion Gap 9 BUN 14 Creatinine 0.6 Creat Clearance w eGFR > 60 POC Glucometer 173.12869 Random Glucose 165 H Hemoglobin A1c % Calcium 8.9 Phosphorus 3.4 Magnesium 2.3 Total Bilirubin 0.2 AST 44 H ALT 35 Alkaline Phosphatase 79 Creatine Kinase 1184 H Creatine Kinase Index 0.9 CK-MB (CK-2) 11.83 H Troponin I 0.16 H Total Protein 7.2 Albumin 3.7 03/06/18 03/06/18 03/06/18 11:35 12:45 17:41 WBC RBC Hgb Hct MCV MCH MCHC RDW Plt Count MPV Absolute Neuts (auto) Neutrophils % Lymphocytes % Monocytes % Eosinophils % Basophils % Nucleated RBC % Sodium Potassium Chloride Carbon Dioxide Anion Gap BUN Creatinine Creat Clearance w eGFR POC Glucometer 170.54588 Random Glucose Hemoglobin A1c % Calcium Phosphorus Magnesium Total Bilirubin AST ALT Alkaline Phosphatase Creatine Kinase 1292 H 1274 H Creatine Kinase Index 0.7 0.5 CK-MB (CK-2) 9.56 H 7.03 H Troponin I 0.18 H 0.18 H Total Protein Albumin 03/06/18 03/06/18 18:00 21:06 WBC RBC Hgb Hct MCV MCH MCHC RDW Plt Count MPV Absolute Neuts (auto) Neutrophils % Lymphocytes % Monocytes % Eosinophils % Basophils % Nucleated RBC % Sodium Potassium Chloride Carbon Dioxide Anion Gap BUN Creatinine Creat Clearance w eGFR POC Glucometer 109 141 Random Glucose Hemoglobin A1c % Calcium Phosphorus Magnesium Total Bilirubin AST ALT Alkaline Phosphatase Creatine Kinase Creatine Kinase Index CK-MB (CK-2) Troponin I Total Protein Albumin Current Medications Generic Name Dose Route Start Last Admin Trade Name Freq PRN Reason Stop Dose Admin Acetaminophen 650 mg 03/06/18 20:42 03/06/18 21:00 Tylenol - PO 650 mg Q6H PRN Administration PAIN LEVEL 7 - 10 Aspirin 325 mg 09/06/18 15:15 03/06/18 15:19 Asa - PO 325 mg DAILY [facility] Administration Atorvastatin Calcium 10 mg 03/06/18 22:00 03/06/18 21:02 Lipitor - PO 10 mg HS [facility] Administration Bacitracin 1 applic 03/07/18 10:00 Bacitracin - TP DAILY [facility] Gabapentin 300 mg 03/06/18 22:00 03/06/18 21:01 Neurontin - PO 300 mg TID [facility] Administration Heparin Sodium (Porcine) 5,000 unit 03/06/18 22:00 03/06/18 21:30 Heparin - SQ 5,000 unit TID [facility] Administration Sodium Chloride 1,000 mls @ 125 mls/hr 03/06/18 13:30 03/06/18 13:30 Normal Saline - IV 125 mls/hr ASDIR [facility] Administration Imipramine HCl 50 mg 03/07/18 10:00 Tofranil - PO DAILY [facility] Insulin Aspart 1 vial 03/06/18 22:00 03/06/18 21:07 Novolog Vial Sliding Scale - SQ Not Given ACHS [facility] Protocol Lisinopril 5 mg 03/07/18 10:00 Prinivil PO DAILY [facility] Venlafaxine HCl 150 mg 03/07/18 10:00 Effexor Xr - PO DAILY [facility]
[2018-03-07] MEDS: HEPARIN NA (PORCINE) 5,000 UNITS/ML 1ML VIAL SQ SCH ×3 (05:52→22:02)
[2018-03-07] MEDS: GABAPENTIN 300 MG CAPSULE (FP) PO SCH ×3 (05:52→22:01)
[2018-03-07] MEDS: INSULIN SLIDING SCALE (NOVOLOG) 1 VIAL SQ SCH ×4 (06:05→22:02)
--- NOTE | 2018-03-07 08:30 | PN ---
Progress Note, Physician Chief Complaint: AWAKE MORE ALERT ON 1:1 OBSERVATION WITH NURSES AID DENIES SUICIDAL IDEATIONS TODAY - Current Medication List Current Medications: Active Medications Acetaminophen (Tylenol -) 650 mg PO Q6H PRN PRN Reason: PAIN LEVEL 7 - 10 Last Admin: 03/06/18 21:00 Dose: 650 mg Aspirin (Asa -) 325 mg PO DAILY [facility] Last Admin: 03/06/18 15:19 Dose: 325 mg Atorvastatin Calcium (Lipitor -) 10 mg PO HS [facility] 234 [facility]S [facility] Last Admin: 03/06/18 21:02 Dose: 10 mg Bacitracin (Bacitracin -) 1 applic TP DAILY [facility]S [facility] Gabapentin (Neurontin -) 300 mg PO TID [facility] Last Admin: 03/07/18 05:52 Dose: 300 mg Heparin Sodium (Porcine) (Heparin -) 5,000 unit SQ TID [facility]S [facility] Last Admin: 03/07/18 05:52 Dose: 5,000 unit Sodium Chloride (Normal Saline -) 1,000 mls @ 125 mls/hr IV [facility]S [facility]CLUDE 234 BEDS AT [facility] Last Admin: 03/06/18 13:30 Dose: 125 mls/hr Imipramine HCl (Tofranil -) 50 mg PO DAILY [facility] Insulin Aspart (Novolog Vial Sliding Scale -) 1 vial SQ ACHS [facility] 234 [facility]S [facility]; Protocol Last Admin: 03/07/18 06:05 Dose: Not Given Lisinopril (Prinivil) 5 mg PO DAILY [facility] Venlafaxine HCl (Effexor Xr -) 150 mg PO DAILY [facility] - Objective Vital Signs: Vital Signs Temperature 99.2 F 03/07/18 06:22 Pulse Rate 98 H 03/07/18 06:22 Respiratory Rate 20 03/07/18 06:22 Blood Pressure 148/88 03/07/18 06:22 O2 Sat by Pulse Oximetry (%) 100 03/06/18 21:00 Constitutional: Yes: Mild Distress Eyes: Yes: WNL HENT: Yes: WNL Neck: Yes: WNL Cardiovascular: Yes: WNL Respiratory: Yes: WNL Gastrointestinal: Yes: WNL Genitourinary: Yes: WNL Musculoskeletal: Yes: WNL Extremities: Yes: Other Edema: No Peripheral Pulses WNL: Yes Integumentary: Yes: Other (BLISTERS TO LEFT AND RIGHT FEET NO INFECTIONS) Wound/Incision: Yes: Open to air Neurological: Yes: Other ...Motor Strength: WNL Psychiatric: Yes: Other Labs: CBC, BMP 03/06/18 05:30 03/06/18 05:30 INR, PTT INR 1.10 (0.83-1.09) H 03/05/18 12:14 Problem List - Problems (1) Altered mental status Code(s): R41.82 - ALTERED MENTAL STATUS, UNSPECIFIED (2) Anticholinergic drug overdose Code(s): T44.3X1A - POISONING BY OTH PARASYMPATH AND SPASMOLYTICS, ACC, INIT (3) Diabetes mellitus Code(s): E11.9 - TYPE 2 DIABETES MELLITUS WITHOUT COMPLICATIONS (4) Hypothyroidism Code(s): E03.9 - HYPOTHYROIDISM, UNSPECIFIED (5) Narcotic overdose Code(s): T40.601A - POISONING BY UNSP NARCOTICS, ACCIDENTAL, INIT Qualifiers: Encounter type: initial encounter Injury intent: intentional self-harm Qualified Code(s): T40.602A - Poisoning by unspecified narcotics, intentional self-harm, initial encounter Assessment/Plan BACITRACIN AND GAUGE TO FOOT BLISTERS NO INFECTIONS SUSPECTED PSYCHIATRY CLEARANCE FOR DISCHARGE CAN DC TOMORROW MORNING
--- NOTE | 2018-03-07 09:09 | EKG ---
Test Reason : Blood Pressure : / mmHG Vent. Rate : 095 BPM Atrial Rate : 095 BPM P-R Int : 166 ms QRS Dur : 096 ms QT Int : 382 ms P-R-T Axes : 063 018 032 degrees QTc Int : 480 ms NORMAL SINUS RHYTHM POSSIBLE LEFT ATRIAL ENLARGEMENT PROLONGED QT ABNORMAL ECG WHEN COMPARED WITH ECG OF 06-MAR-2018 08:40, NO SIGNIFICANT CHANGE WAS FOUND Confirmed by JOSSELYN GRIGSBY MD ([id number]) on 03/07/2018 9:09:33 AM Referred By: BENEDICTO COVINGTON Confirmed By:JOSSELYN GRIGSBY MD
[2018-03-07] MEDS ORDERED: BACITRACIN 15 GM TUBE TOPICAL OINTMENT TP SCH (10:00)
[2018-03-07] MEDS ORDERED: VENLAFAXINE HCL 75 MG E.R. CAPSULES (FP) PO SCH (10:00)
[2018-03-07] MEDS ORDERED: PT OWN MED DRAWER 7, Y5N ONE (10:11)
[2018-03-07] MEDS: LISINOPRIL 5 MG TABLET (FP) PO SCH (10:13)
[2018-03-07] MEDS: ASPIRIN 325 MG TABLET PO SCH (10:13)
[2018-03-07] MEDS: BACITRACIN 15 GM TUBE TOPICAL OINTMENT TP SCH (10:14)
[2018-03-07] MEDS: IMIPRAMINE HCL 25 MG TABLET (NON FORMULARY) PO SCH (10:15)
--- NOTE | 2018-03-07 13:00 | ECHO ---
Name: MILLIE SEAY Exam:Adult Echocardiogram Study Date: 03/07/2018 10:52 AM Age: 57 yrs Reason For Study: S/P DRUG OVERDOSE, RISING TROPONIN Height: 69 in Weight: 186 lb BSA: 2.0 m2 MMode/2D Measurements & Calculations IVSd: 0.90 cm Ao root diam: 2.7 cm LVIDd: 4.6 cm LA dimension: 3.4 cm LVIDs: 3.1 cm LVPWd: 0.91 cm EDV(Teich): 95.9 ml TAPSE: 3.1 cm ESV(Teich): 38.3 ml RV S Lit: 12.5 cm/sec Doppler Measurements & Calculations MV E max lit: 68.6 cm/sec MR max lit: 415.3 cm/sec MV A max lit: 102.8 cm/sec MR max P.0 mmHg MV E/A: 0.67 TR max lit: 231.6 cm/sec Med Peak E' Lit: 8.5 cm/sec TR max P.5 mmHg Med E/e': 8.0 Lat Peak E' Lit: 11.9 cm/sec Lat E/e': 5.7 Left Ventricle The left ventricular size, thickness and function are normal. Ejection Fraction = 60%. Left Ventricul ar Filling pattern is normal for age. The left ventricular wall motion is normal. Right Ventricle The right ventricle is normal in size and function. The right ventricular systolic function is normal . Atria Normal left and right atrial size and function. Mitral Valve The mitral valve is grossly normal. There is no mitral valve stenosis. Tricuspid Valve The tricuspid valve is not well visualized, but is grossly normal. There is no tricuspid stenosis. Th ere is mild tricuspid regurgitation. Aortic Valve Aortic valve not well seen but appears trileaflet. Cannot exclude aortic valvular vegetation. No hemodynamically significant valvular aortic stenosis. Trace aortic regurgitation. Pulmonic Valve The pulmonic valve is not well visualized. Trace pulmonic valvular regurgitation. Great Vessels The aortic root is not well visualized. Pericardium/Pleura Trivial pericardial effusion not hemodynamically significant. Interpretation Summary The left ventricular size, thickness and function are normal. Left ventricular ejection fraction = 60 % with no regional wall motion abnormalities. Left Ventricular Filling pattern is normal for age. The left ventricular wall motion is normal. The right ventricle is normal in size and function. The right ventricular systolic function is normal. Normal left and right atrial size and function. The mitral valve is grossly normal. There is no mitral valve stenosis. The tricuspid valve is not well visualized, but is grossly normal. There is no tricuspid stenosis. There is mild tricuspid regurgitation. Aortic annular calcification. Aortic valve appears trileaflet and normal in structure. No hemodynamically significant valvular aortic stenosis. No aortic regurgitation. The pulmonic valve is not well visualized. Trace pulmonic valvular regurgitation. Trivial pericardial effusion not hemodynamically significant No obvious vegetations seen on heart valves but DEBORAH is more sensitive for vegetations if clinically i ndicated. MD Hugo Mitchell 03/07/2018 12:50 PM
[2018-03-07] MEDS ORDERED: INSULIN (NOVOLOG) ASPART 100 UNITS/ML 10ML VIAL ONE (17:26)
[2018-03-07] MEDS: SODIUM CHLORIDE 1,000 ML IV SCH (17:32)
--- NOTE | 2018-03-07 18:27 | PN ---
Progress Note (short form) - Note Progress Note: Patient seen for Psych follow up: alejandro Ndiaye, in excellant spirits, spoke to her psychiatrist at [facility]. patient denies any suicidal ideas or plans. nit hallucinating or delusional at thois time> Able to comprehend and participate in conversations and undestands and comprehends. Plan: d/c 1:1 2) Patient can be discharged Home as she no longer is suicidal or Homicidal at this time. 3) she will follow up with her psychiatrist at [facility].
[2018-03-07] MEDS: ATORVASTATIN CA 10 MG TABLET (FP) PO SCH (22:01)
[2018-03-07] MEDS: ACETAMINOPHEN 325 MG TABLET (FP) PO PRN (22:01)
[2018-03-08] MEDS: SODIUM CHLORIDE 1,000 ML IV SCH ×2 (01:51→15:01)
[2018-03-08] MEDS: HEPARIN NA (PORCINE) 5,000 UNITS/ML 1ML VIAL SQ SCH ×3 (06:17→21:11)
[2018-03-08] MEDS: INSULIN SLIDING SCALE (NOVOLOG) 1 VIAL SQ SCH ×4 (06:17→21:13)
[2018-03-08] MEDS: GABAPENTIN 300 MG CAPSULE (FP) PO SCH ×3 (06:17→21:11)
[2018-03-08 07:43] LABS: HEMATOCRIT 34.4 % (32.4-45.2); HEMOGLOBIN 11.7 GM/dL (10.7-15.3); MCH 29.8 pg (25.7-33.7); MCHC 33.9 g/dl (32.0-36.0); MEAN CELL VOLUME 87.8 fl (80-96); MEAN PLT VOLUME 9.3 fl (7.5-11.1); PLATELET COUNT 221 K/MM3 (134-434); RBC 3.92 M/mm3 (3.60-5.2); RDW 13.2 % (11.6-15.6); WHITE BLOOD COUNT 7.5 K/mm3 (4.0-10.0)
[2018-03-08 08:19] LABS: ALBUMIN 4.1 g/dl (3.4-5.0); ANION GAP 11 MMOL/L (8-16); BILIRUBIN,TOTAL 0.5 mg/dL (0.2-1.0); BLOOD UREA NITROGEN 8 mg/dL (7-18); CALCIUM 9.3 mg/dL (8.5-10.1); CHLORIDE 103 mmol/L (98-107); CO2 26 mmol/L (21-32); CREATININE 0.6 mg/dL (0.55-1.02); GLUCOSE,RANDOM 132 mg/dL (74-106); POTASSIUM 3.9 mmol/L (3.5-5.1); SGOT/AST 76 U/L (15-37); SGPT/ALT 45 U/L (12-78); SODIUM 140 mmol/L (136-145); TOT PROT 7.9 g/dl (6.4-8.2)
[2018-03-08 08:31] LABS: ALK PHOS 77 U/L (45-117)
[2018-03-08] MEDS ORDERED: PT OWN MED DRAWER 7, Y5N ONE (08:37)
[2018-03-08] MEDS: VENLAFAXINE HCL 75 MG E.R. CAPSULES (FP) PO SCH (08:46)
[2018-03-08] MEDS: LISINOPRIL 5 MG TABLET (FP) PO SCH ×2 (10:48→15:01)
[2018-03-08] MEDS: ASPIRIN 325 MG TABLET PO SCH ×2 (10:48→15:01)
[2018-03-08] MEDS: IMIPRAMINE HCL 25 MG TABLET (NON FORMULARY) PO SCH ×2 (10:49→15:01)
[2018-03-08] MEDS ORDERED: morphine SULFATE 4 MG/ML VIAL SQ ONE (10:51)
[2018-03-08] MEDS ORDERED: MORPHINE SULFATE 2 MG/ML VIAL IVPUSH PRN ×2 (10:52→14:14)
[2018-03-08] MEDS ORDERED: ONDANSETRON 4 MG/2 ML VIAL IVPUSH PRN (10:53)
--- NOTE | 2018-03-08 13:32 | PN ---
Progress Note, Physician History of Present Illness: PT C/O N/V AND DIARRHEA PT STATES SHE IS GOING THROUGH WITHDRAWALS - Current Medication List Current Medications: Active Medications Acetaminophen (Tylenol -) 650 mg PO Q6H PRN PRN Reason: PAIN LEVEL 7 - 10 Last Admin: 03/07/18 22:01 Dose: 650 mg Aspirin (Asa -) 325 mg PO DAILY [facility] Last Admin: 03/08/18 10:48 Dose: Not Given Atorvastatin Calcium (Lipitor -) 10 mg PO HS [facility] Last Admin: 03/07/18 22:01 Dose: 10 mg Bacitracin (Bacitracin -) 1 applic TP DAILY [facility] Last Admin: 03/07/18 10:14 Dose: 1 applic Gabapentin (Neurontin -) 300 mg PO TID [facility] Last Admin: 03/08/18 06:17 Dose: 300 mg Heparin Sodium (Porcine) (Heparin -) 5,000 unit SQ TID [facility] Last Admin: 03/08/18 06:17 Dose: 5,000 unit Sodium Chloride (Normal Saline -) 1,000 mls @ 125 mls/hr IV ASDIR [facility] Last Admin: 03/08/18 01:51 Dose: 125 mls/hr Imipramine HCl (Tofranil -) 50 mg PO DAILY [facility] Last Admin: 03/08/18 10:49 Dose: Not Given Insulin Aspart (Novolog Vial Sliding Scale -) 1 vial SQ [facility]; Protocol Last Admin: 03/08/18 11:53 Dose: 2 units Lisinopril (Prinivil) 5 mg PO DAILY [facility] Last Admin: 03/08/18 10:48 Dose: Not Given Venlafaxine HCl (Effexor Xr -) 150 mg PO DAILY@0800 [facility] Last Admin: 03/08/18 08:46 Dose: 150 mg - Objective Vital Signs: Vital Signs Temperature 98.2 F 03/08/18 06:00 Pulse Rate 86 03/08/18 06:00 Respiratory Rate 18 03/08/18 06:00 Blood Pressure 157/94 03/08/18 06:00 O2 Sat by Pulse Oximetry (%) 95 03/07/18 23:00 Cardiovascular: Yes: S1, S2 Respiratory: Yes: Regular, CTA Bilaterally Gastrointestinal: Yes: Normal Bowel Sounds, Soft. No: Tenderness Labs: CBC, BMP 03/08/18 07:10 03/08/18 07:10 INR, PTT INR 1.10 (0.83-1.09) H 03/05/18 12:14 Problem List - Problems (1) Suicidal overdose Assessment/Plan: . Drug overdose: Off 1:1 supervision per psych psychiatry consult noted Code(s): T50.902A - POISONING BY UNSP DRUG/MEDS/BIOL SUBST, SELF-HARM, INIT (2) Altered mental status Code(s): R41.82 - ALTERED MENTAL STATUS, UNSPECIFIED (3) Diabetes mellitus Assessment/Plan: - sliding scale insulin. BGM Code(s): E11.9 - TYPE 2 DIABETES MELLITUS WITHOUT COMPLICATIONS (4) Hypothyroidism Assessment/Plan: -Decrease synthroid to 112 Code(s): E03.9 - HYPOTHYROIDISM, UNSPECIFIED (5) Chronic bilateral low back pain Assessment/Plan: -Neuro consult Code(s): M54.5 - LOW BACK PAIN; G89.29 - OTHER CHRONIC PAIN (6) Morphine addiction Assessment/Plan: -morphine prn -detox consult -check labs Code(s): F11.20 - OPIOID DEPENDENCE, UNCOMPLICATED (7) Elevated CK Assessment/Plan: -follow trends -ekg -cardio f/u Code(s): R74.8 - ABNORMAL LEVELS OF OTHER SERUM ENZYMES
[2018-03-08] MEDS ORDERED: ONDANSETRON *ODT* 4 MG TABLET SL PRN ×2 (13:34→16:24)
[2018-03-08] MEDS: BACITRACIN 15 GM TUBE TOPICAL OINTMENT TP SCH (14:50)
[2018-03-08] MEDS: morphine SULFATE 10 MG/5 ML UNIT-DOSE CUP PO PRN ×2 (16:26→20:34)
[2018-03-08] MEDS ORDERED: INSULIN (NOVOLOG) ASPART 100 UNITS/ML 10ML VIAL ONE (16:34)
[2018-03-08] MEDS: ATORVASTATIN CA 10 MG TABLET (FP) PO SCH (21:11)
[2018-03-09] MEDS: morphine SULFATE 10 MG/5 ML UNIT-DOSE CUP PO PRN ×3 (01:05→16:48)
[2018-03-09] MEDS ORDERED: LISINOPRIL 20 MG TABLET (FP) PO STA (05:54)
[2018-03-09] MEDS: LISINOPRIL 5 MG TABLET (FP) PO SCH ×2 (06:28→09:07)
[2018-03-09] MEDS: GABAPENTIN 300 MG CAPSULE (FP) PO SCH ×3 (06:28→21:30)
[2018-03-09] MEDS: HEPARIN NA (PORCINE) 5,000 UNITS/ML 1ML VIAL SQ SCH ×3 (06:32→21:29)
[2018-03-09] MEDS: INSULIN SLIDING SCALE (NOVOLOG) 1 VIAL SQ SCH ×4 (06:37→22:35)
[2018-03-09] MEDS ORDERED: PT OWN MED DRAWER 7, Y5N ONE ×4 (08:43→11:46)
[2018-03-09] MEDS: VENLAFAXINE HCL 75 MG E.R. CAPSULES (FP) PO SCH (09:07)
[2018-03-09] MEDS: IMIPRAMINE HCL 25 MG TABLET (NON FORMULARY) PO SCH (09:07)
[2018-03-09] MEDS: ASPIRIN 325 MG TABLET PO SCH (09:07)
--- NOTE | 2018-03-09 11:12 | PN ---
Progress Note, Physician History of Present Illness: PT C/O N/V AND DIARRHEA--BETTER TODAY--C/O ABD DISCOMFORT PT STATES SHE IS GOING THROUGH WITHDRAWALS - Current Medication List Current Medications: Active Medications Acetaminophen (Tylenol -) 650 mg PO Q6H PRN PRN Reason: PAIN LEVEL 1-5 Last Admin: 03/07/18 22:01 Dose: 650 mg Amlodipine Besylate (Norvasc -) 10 mg PO DAILY [facility] Aspirin (Asa -) 325 mg PO DAILY [facility] Last Admin: 03/09/18 09:07 Dose: 325 mg Atorvastatin Calcium (Lipitor -) 10 mg PO HS [facility] Last Admin: 03/08/18 21:11 Dose: 10 mg Bacitracin (Bacitracin -) 1 applic TP DAILY [facility] Last Admin: 03/08/18 14:50 Dose: Not Given Gabapentin (Neurontin -) 300 mg PO TID [facility] Last Admin: 03/09/18 06:28 Dose: 300 mg Heparin Sodium (Porcine) (Heparin -) 5,000 unit SQ TID [facility] Last Admin: 03/09/18 06:32 Dose: 5,000 unit Sodium Chloride (Normal Saline -) 1,000 mls @ 125 mls/hr IV ASDIR [facility] Last Admin: 03/08/18 15:01 Dose: Not Given Imipramine HCl (Tofranil -) 50 mg PO DAILY [facility] Last Admin: 03/09/18 09:07 Dose: 50 mg Insulin Aspart (Novolog Vial Sliding Scale -) 1 vial SQ ACHS [facility]; Protocol Last Admin: 03/09/18 06:37 Dose: Not Given Lisinopril (Prinivil) 5 mg PO DAILY [facility] Last Admin: 03/09/18 09:07 Dose: 5 mg Morphine Sulfate (Morphine 10 Mg/5 Ml Liquid) 10 mg PO Q4H PRN PRN Reason: PAIN LEVEL 6-10 Last Admin: 03/09/18 01:05 Dose: 10 mg Ondansetron HCl (Zofran Odt -) 4 mg SL Q6H PRN PRN Reason: NAUSEA Last Admin: 03/09/18 08:53 Dose: 4 mg Venlafaxine HCl (Effexor Xr -) 150 mg PO DAILY@0800 [facility] Last Admin: 03/09/18 09:07 Dose: 150 mg - Objective Vital Signs: Vital Signs Temperature 98.5 F 03/09/18 06:00 Pulse Rate 76 03/09/18 06:00 Respiratory Rate 20 03/09/18 06:00 Blood Pressure 164/103 03/09/18 06:00 O2 Sat by Pulse Oximetry (%) 98 03/08/18 21:00 Cardiovascular: Yes: Regular Rate and Rhythm Respiratory: Yes: Regular, CTA Bilaterally Gastrointestinal: Yes: Normal Bowel Sounds, Soft, Tenderness (MILD ON PLAPATION) Labs: CBC, BMP 03/08/18 07:10 03/08/18 07:10 INR, PTT INR 1.10 (0.83-1.09) H 03/05/18 12:14 Problem List - Problems (1) Suicidal overdose Assessment/Plan: . Drug overdose: Off 1:1 supervision per psych psychiatry consult noted Code(s): T50.902A - POISONING BY UNSP DRUG/MEDS/BIOL SUBST, SELF-HARM, INIT (2) Altered mental status Assessment/Plan: -As above Code(s): R41.82 - ALTERED MENTAL STATUS, UNSPECIFIED (3) Diabetes mellitus Assessment/Plan: - sliding scale insulin. BGM Code(s): E11.9 - TYPE 2 DIABETES MELLITUS WITHOUT COMPLICATIONS (4) Hypothyroidism Assessment/Plan: -Decrease synthroid to 112 Code(s): E03.9 - HYPOTHYROIDISM, UNSPECIFIED (5) Chronic bilateral low back pain Assessment/Plan: -Neuro consult -ON MORPHINE Code(s): M54.5 - LOW BACK PAIN; G89.29 - OTHER CHRONIC PAIN (6) Morphine addiction Assessment/Plan: -morphine prn -detox consult -check labs Code(s): F11.20 - OPIOID DEPENDENCE, UNCOMPLICATED (7) Elevated CK Assessment/Plan: -follow trends -ekg -cardio f/u -TRANSFER TO TELE Code(s): R74.8 - ABNORMAL LEVELS OF OTHER SERUM ENZYMES (8) Abdominal pain Assessment/Plan: -LABS -CT SCAN -GI CONSULT Code(s): R10.9 - UNSPECIFIED ABDOMINAL PAIN (9) HTN (hypertension) Assessment/Plan: -ADD NORVASC -CARDIO FOLLOW UP Code(s): I10 - ESSENTIAL (PRIMARY) HYPERTENSION
[2018-03-09] MEDS ORDERED: amLODIPine BESYLATE 10 MG TABLET (FP) PO SCH (11:15)
[2018-03-09] MEDS ORDERED: INSULIN (NOVOLOG) ASPART 100 UNITS/ML 10ML VIAL ONE (11:49)
[2018-03-09] MEDS: BACITRACIN 15 GM TUBE TOPICAL OINTMENT TP SCH (11:52)
[2018-03-09 12:03] LABS: BASO % 0.7 % (0-2.0); EOS % 0.2 % (0-4.5); HEMATOCRIT 37.7 % (32.4-45.2); LYMPH % 21.7 % (8-40); MCH 29.9 pg (25.7-33.7); MCHC 34.5 g/dl (32.0-36.0); MEAN CELL VOLUME 86.7 fl (80-96); MEAN PLT VOLUME 9.1 fl (7.5-11.1); MONO % 9.5 % (3.8-10.2); NEUT % 67.9 % (42.8-82.8); PLATELET COUNT 259 K/MM3 (134-434); RBC 4.34 M/mm3 (3.60-5.2); RDW 13.8 % (11.6-15.6); WHITE BLOOD COUNT 8.5 K/mm3 (4.0-10.0)
[2018-03-09] MEDS ORDERED: ACETAMINOPHEN 325 MG TABLET (FP) PO PRN (12:20)
[2018-03-09 12:43] LABS: ALBUMIN 4.2 g/dl (3.4-5.0); ANION GAP 12 MMOL/L (8-16); BLOOD UREA NITROGEN 12 mg/dL (7-18); CALCIUM 9.5 mg/dL (8.5-10.1); CHLORIDE 101 mmol/L (98-107); CO2 25 mmol/L (21-32); GLUCOSE,RANDOM 114 mg/dL (74-106); POTASSIUM 3.3 mmol/L (3.5-5.1); SGOT/AST 70 U/L (15-37); SGPT/ALT 57 U/L (12-78); SODIUM 138 mmol/L (136-145)
[2018-03-09 12:57] LABS: ALK PHOS 85 U/L (45-117); BILIRUBIN,TOTAL 0.6 mg/dL (0.2-1.0); CREATININE 0.6 mg/dL (0.55-1.02); TOT PROT 8.3 g/dl (6.4-8.2)
[2018-03-09 13:30] LABS: ANISOCYTOSIS 0; MACROCYTOSIS 0; PLATELET ESTIMATE NORMAL
[2018-03-09] MEDS ORDERED: LISINOPRIL 20 MG TABLET (FP) PO ONE (15:27)
[2018-03-09] MEDS: SODIUM CHLORIDE 1,000 ML IV SCH (15:54)
[2018-03-09] MEDS: ONDANSETRON *ODT* 4 MG TABLET SL PRN (15:55)
[2018-03-09] MEDS: KCL 10 MEQ IVPB 10 MEQ/100 ML INFUS.BAG IVPB SCH ×2 (16:19→17:46)
[2018-03-09] MEDS: morphine SO4 SUSTAINED ACTING 30 MG TABLET.SA PO SCH (21:29)
[2018-03-09] MEDS: ATORVASTATIN CA 10 MG TABLET (FP) PO SCH (21:29)
[2018-03-09] MEDS ORDERED: ONDANSETRON 4 MG/2 ML VIAL ONE (22:25)
[2018-03-09] MEDS ORDERED: ONDANSETRON 4 MG/2 ML VIAL IVPUSH ONE (22:30)
[2018-03-09] MEDS ORDERED: ALPRAZolam 0.25 MG TABLET PO ONE (23:56)
[2018-03-10] MEDS: HEPARIN NA (PORCINE) 5,000 UNITS/ML 1ML VIAL SQ SCH ×3 (05:57→22:07)
[2018-03-10] MEDS: GABAPENTIN 300 MG CAPSULE (FP) PO SCH ×3 (06:01→22:08)
[2018-03-10] MEDS: morphine SULFATE 10 MG/5 ML UNIT-DOSE CUP PO PRN (06:01)
[2018-03-10] MEDS: ONDANSETRON *ODT* 4 MG TABLET SL PRN ×2 (06:02→23:55)
[2018-03-10 07:18] LABS: CHLORIDE 101 mmol/L (98-107); POTASSIUM 3.5 mmol/L (3.5-5.1); SODIUM 137 mmol/L (136-145)
[2018-03-10 07:29] LABS: ALBUMIN 3.8 g/dl (3.4-5.0); ALK PHOS 77 U/L (45-117); ANION GAP 10 MMOL/L (8-16); BILIRUBIN,TOTAL 0.5 mg/dL (0.2-1.0); BLOOD UREA NITROGEN 12 mg/dL (7-18); CALCIUM 8.6 mg/dL (8.5-10.1); CO2 26 mmol/L (21-32); CREATININE 0.7 mg/dL (0.55-1.02); GLUCOSE,RANDOM 88 mg/dL (74-106); SGOT/AST 72 U/L (15-37); SGPT/ALT 66 U/L (12-78); TOT PROT 7.5 g/dl (6.4-8.2)
[2018-03-10 08:28] LABS: BASO % 0.6 % (0-2.0); EOS % 0.5 % (0-4.5); HEMATOCRIT 35.9 % (32.4-45.2); HEMOGLOBIN 12.1 GM/dL (10.7-15.3); LYMPH % 30.7 % (8-40); MCH 29.6 pg (25.7-33.7); MCHC 33.6 g/dl (32.0-36.0); MEAN CELL VOLUME 88.1 fl (80-96); MEAN PLT VOLUME 9.5 fl (7.5-11.1); MONO % 8.8 % (3.8-10.2); NEUT % 59.4 % (42.8-82.8); PLATELET COUNT 241 K/MM3 (134-434); RBC 4.08 M/mm3 (3.60-5.2); RDW 13.7 % (11.6-15.6); WHITE BLOOD COUNT 7.7 K/mm3 (4.0-10.0)
[2018-03-10] MEDS ORDERED: LISINOPRIL 5 MG TABLET (FP) PO SCH (10:00)
--- NOTE | 2018-03-10 10:22 | PN ---
Progress Note, Physician - Current Medication List Current Medications: Active Medications Acetaminophen (Tylenol -) 650 mg PO Q6H PRN PRN Reason: PAIN LEVEL 1-5 Amlodipine Besylate (Norvasc -) 10 mg PO DAILY [facility] Aspirin (Asa -) 325 mg PO DAILY [facility] Atorvastatin Calcium (Lipitor -) 10 mg PO HS [facility] Last Admin: 03/09/18 21:29 Dose: 10 mg Bacitracin (Bacitracin -) 1 applic TP DAILY [facility] Gabapentin (Neurontin -) 300 mg PO TID [facility] Last Admin: 03/10/18 06:01 Dose: 300 mg Heparin Sodium (Porcine) (Heparin -) 5,000 unit SQ TID [facility] Last Admin: 03/10/18 05:57 Dose: 5,000 unit Sodium Chloride (Normal Saline -) 1,000 mls @ 125 mls/hr IV ASDIR [facility] Last Admin: 03/09/18 15:54 Dose: 125 mls/hr Imipramine HCl (Tofranil -) 50 mg PO DAILY [facility] Insulin Aspart (Novolog Vial Sliding Scale -) 1 vial SQ [facility]; Protocol Last Admin: 03/09/18 22:35 Dose: Not Given Lisinopril (Prinivil) 20 mg PO DAILY [facility] Morphine Sulfate (Morphine 10 Mg/5 Ml Liquid) 10 mg PO Q4H PRN PRN Reason: PAIN LEVEL 6-10 Last Admin: 03/10/18 06:01 Dose: 10 mg Morphine Sulfate (Ms Contin -) 30 mg PO BID [facility] Last Admin: 03/09/18 21:29 Dose: 30 mg Ondansetron HCl (Zofran Odt -) 4 mg SL Q6H PRN PRN Reason: NAUSEA Last Admin: 03/10/18 06:02 Dose: 4 mg Venlafaxine HCl (Effexor Xr -) 150 mg PO DAILY@0800 [facility] - Objective Vital Signs: Vital Signs Temperature 99 F 03/10/18 05:31 Pulse Rate 81 03/10/18 05:31 Respiratory Rate 21 03/10/18 05:31 Blood Pressure 146/85 03/10/18 05:31 O2 Sat by Pulse Oximetry (%) 100 03/09/18 21:00 Cardiovascular: Yes: S1, S2 Respiratory: Yes: Regular, CTA Bilaterally Gastrointestinal: Yes: Normal Bowel Sounds, Soft Labs: CBC, BMP 03/10/18 05:30 03/10/18 05:30 INR, PTT INR 1.10 (0.83-1.09) H 03/05/18 12:14 Problem List - Problems (1) Suicidal overdose Assessment/Plan: . Drug overdose: Off 1:1 supervision per psych psychiatry consult noted Code(s): T50.902A - POISONING BY UNSP DRUG/MEDS/BIOL SUBST, SELF-HARM, INIT (2) Altered mental status Assessment/Plan: -As above Code(s): R41.82 - ALTERED MENTAL STATUS, UNSPECIFIED (3) Diabetes mellitus Assessment/Plan: - sliding scale insulin. BGM Code(s): E11.9 - TYPE 2 DIABETES MELLITUS WITHOUT COMPLICATIONS (4) Hypothyroidism Assessment/Plan: -Decrease synthroid to 112 Code(s): E03.9 - HYPOTHYROIDISM, UNSPECIFIED (5) Chronic bilateral low back pain Assessment/Plan: -Neuro consult -ON MORPHINE Code(s): M54.5 - LOW BACK PAIN; G89.29 - OTHER CHRONIC PAIN (6) Morphine addiction Assessment/Plan: -morphine prn -detox consult -check labs Code(s): F11.20 - OPIOID DEPENDENCE, UNCOMPLICATED (7) Elevated CK Assessment/Plan: -follow trends -ekg -cardio f/u -trend down Code(s): R74.8 - ABNORMAL LEVELS OF OTHER SERUM ENZYMES (8) Abdominal pain Assessment/Plan: -LABS noted -CT SCAN noted constipation -miralax -GI CONSULT Code(s): R10.9 - UNSPECIFIED ABDOMINAL PAIN (9) HTN (hypertension) Assessment/Plan: -ADDED NORVASC -CARDIO FOLLOW UP Code(s): I10 - ESSENTIAL (PRIMARY) HYPERTENSION
--- NOTE | 2018-03-10 10:28 | EKG ---
Test Reason : Blood Pressure : / mmHG Vent. Rate : 088 BPM Atrial Rate : 088 BPM P-R Int : 176 ms QRS Dur : 098 ms QT Int : 414 ms P-R-T Axes : 048 -04 -07 degrees QTc Int : 500 ms NORMAL SINUS RHYTHM POSSIBLE LEFT ATRIAL ENLARGEMENT LEFT VENTRICULAR HYPERTROPHY T WAVE ABNORMALITY, CONSIDER ANTEROLATERAL ISCHEMIA PROLONGED QT ABNORMAL ECG WHEN COMPARED WITH ECG OF 08-MAR-2018 11:31, T WAVE VARIATION Confirmed by BRANDIN BERGERON, MARISOL ([id number]) on 03/10/2018 10:27:51 AM Referred By: Hiram OSWALD Confirmed By:MARISOL GHOTRA MD
--- NOTE | 2018-03-10 10:44 | EKG ---
Test Reason : Blood Pressure : / mmHG Vent. Rate : 083 BPM Atrial Rate : 083 BPM P-R Int : 178 ms QRS Dur : 094 ms QT Int : 440 ms P-R-T Axes : 064 018 037 degrees QTc Int : 517 ms NORMAL SINUS RHYTHM POSSIBLE LEFT ATRIAL ENLARGEMENT PROLONGED QT ABNORMAL ECG WHEN COMPARED WITH ECG OF 07-MAR-2018 08:44, T WAVE VARIATION Confirmed by MARISOL GHOTRA MD ([id number]) on 03/10/2018 10:44:40 AM Referred By: Hiram OSWALD Confirmed By:MARISOL GHOTRA MD
[2018-03-10] MEDS: LISINOPRIL 20 MG TABLET (FP) PO SCH (10:48)
[2018-03-10] MEDS: morphine SO4 SUSTAINED ACTING 30 MG TABLET.SA PO SCH ×2 (10:48→22:07)
[2018-03-10] MEDS: VENLAFAXINE HCL 75 MG E.R. CAPSULES (FP) PO SCH (10:48)
[2018-03-10] MEDS: amLODIPine BESYLATE 10 MG TABLET (FP) PO SCH (10:48)
[2018-03-10] MEDS: ASPIRIN 325 MG TABLET PO SCH (10:49)
[2018-03-10] MEDS: IMIPRAMINE HCL 25 MG TABLET (NON FORMULARY) PO SCH (10:49)
[2018-03-10] MEDS: BACITRACIN 15 GM TUBE TOPICAL OINTMENT TP SCH (10:50)
[2018-03-10] MEDS: INSULIN SLIDING SCALE (NOVOLOG) 1 VIAL SQ SCH ×3 (11:05→22:08)
--- NOTE | 2018-03-10 12:10 | CON.GI ---
Consult Consult Specialty:: GI Reason for Consultation:: Abdominal pain, nausea, vomiting - History of Present Illness History of Present Illness: Chart reviewed, Reason for admission and hospital course noted. GI called for nausea and vomiting with associated abdominal discomfort. Onset while hospitalized. No melena, hematochezia, hematemesis, jaundice, fever, chills. No hx, of bowel obstruction. CT A/P described uterine fibroids, and stool in the colon. AAOx3, NAD, Tolerating liquids at the time of this. - History Source History Provided By: Patient, Medical Record - Past Medical History ...: No Psych: Yes: Depression Endocrine: Yes: Diabetes Mellitus - Alcohol/Substance Use Hx Alcohol Use: No - Smoking History Smoking history: Never smoked Have you smoked in the past 12 months: No - Social History Usual Living Arrangement: With Child Home Medications - Allergies Allergies/Adverse Reactions: Allergies Allergy/AdvReac Type Severity Reaction Status Date / Time ketorolac tromethamine Allergy hives Verified 03/05/18 13:52 [From Toradol] Penicillins Allergy Verified 03/05/18 13:52 - Home Medications Home Medications: Ambulatory Orders Acetaminophen/Caffeine [Tension Headache Caplet] 1 each PO ASDIR 03/05/18 Aspirin [Aspirin EC] 81 mg PO DAILY 03/05/18 Diphenhydramine [Benadryl -] 25 mg PO ASDIR 03/05/18 Gabapentin [Neurontin] 300 mg PO TID 03/05/18 Glipizide 5 mg PO BID 03/05/18 Hydroxyzine HCl 50 mg PO HS 03/05/18 Ibuprofen [Motrin -] 600 mg PO TID PRN 03/05/18 Imipramine HCl 50 mg PO DAILY 03/05/18 Levothyroxine [Synthroid -] 125 mcg PO DAILY 03/05/18 Lisinopril [Zestril] 5 mg PO DAILY 03/05/18 Morphine *Sr* [Ms Contin -] 60 mg PO HS 03/05/18 Morphine *Sr* [Ms Contin -] 120 mg PO AM 03/05/18 Pioglitazone HCl [Actos] 30 mg PO DAILY 03/05/18 Simvastatin 10 mg PO HS 03/05/18 Venlafaxine HCl ER [Effexor Xr -] 37.5 mg PO DAILY 03/05/18 Venlafaxine HCl ER [Effexor Xr -] 150 mg PO DAILY 03/05/18 Family Disease History - Family Disease History Family History: Unremarkable Review of Systems Findings/Remarks: as per HPI, ED, H&P Physical Exam-GI Vital Signs: Vital Signs Temperature 99 F 03/10/18 05:31 Pulse Rate 81 03/10/18 05:31 Respiratory Rate 21 03/10/18 05:31 Blood Pressure 146/85 03/10/18 05:31 O2 Sat by Pulse Oximetry (%) 100 03/09/18 21:00 Constitutional: Yes: Well Nourished, No Distress, Calm Eyes: Yes: Conjunctiva Clear HENT: Yes: Atraumatic Neck: Yes: Supple Cardiovascular: Yes: Regular Rate and Rhythm Respiratory: Yes: Regular Gastrointestinal Inspection: No: Ascites, Distention ...Auscultate: Yes: Normoactive Bowel Sounds ...Palpate: Yes: Soft. No: Firm/Rigid, Guarding, Mass, Tenderness, Tenderness, Epigastium, Tenderness, Rebound Neurological: Yes: Alert, Oriented Labs: CBC, BMP 03/10/18 05:30 03/10/18 05:30 INR, PTT INR 1.10 (0.83-1.09) H 03/05/18 12:14 Laboratory Last Values WBC 7.7 K/mm3 (4.0-10.0) 03/10/18 05:30 RBC 4.08 M/mm3 (3.60-5.2) 03/10/18 05:30 Hgb 12.1 GM/dL (10.7-15.3) 03/10/18 05:30 Hct 35.9 % (32.4-45.2) 03/10/18 05:30 MCV 88.1 fl (80-96) 03/10/18 05:30 MCH 29.6 pg (25.7-33.7) 03/10/18 05:30 MCHC 33.6 g/dl (32.0-36.0) 03/10/18 05:30 RDW 13.7 % (11.6-15.6) 03/10/18 05:30 Plt Count 241 K/MM3 (134-434) 03/10/18 05:30 MPV 9.5 fl (7.5-11.1) 03/10/18 05:30 Absolute Neuts (auto) 4.6 K/mm3 (1.5-8.0) 03/10/18 05:30 Neutrophils % 59.4 % (42.8-82.8) 03/10/18 05:30 Neutrophils % (Manual) 57.1 % (42.8-82.8) 03/09/18 11:50 Band Neutrophils % 0.0 % 03/09/18 11:50 Lymphocytes % 30.7 % (8-40) D 03/10/18 05:30 Lymphocytes % (Manual) 30.5 % (8-40) 03/09/18 11:50 Monocytes % 8.8 % (3.8-10.2) 03/10/18 05:30 Monocytes % (Manual) 9 % (3.8-10.2) 03/09/18 11:50 Eosinophils % 0.5 % (0-4.5) D 03/10/18 05:30 Eosinophils % (Manual) 0.0 % (0-4.5) 03/09/18 11:50 Basophils % 0.6 % (0-2.0) 03/10/18 05:30 Basophils % (Manual) 0.0 % (0-2.0) 03/09/18 11:50 Myelocytes % (Man) 1 % (0-2) 03/09/18 11:50 Promyelocytes % (Man) 0 % (0-2) 03/09/18 11:50 Blast Cells % (Manual) 0 % (0-0) 03/09/18 11:50 Nucleated RBC % 0 % (0-0) 03/10/18 05:30 Metamyelocytes 2 % (0-2) 03/09/18 11:50 Hypochromia 0 03/09/18 11:50 Platelet Estimate Normal 03/09/18 11:50 Polychromasia 1+ 03/09/18 11:50 Poikilocytosis 0 03/09/18 11:50 Anisocytosis 0 03/09/18 11:50 Microcytosis 0 03/09/18 11:50 Macrocytosis 0 03/09/18 11:50 PT with INR 12.40 SEC (9.7-13.0) 03/05/18 12:14 INR 1.10 (0.83-1.09) H 03/05/18 12:14 Anticoagulation Therapy No Result Required. 03/05/18 17:37 Puncture Site Right radial 03/05/18 17:37 ABG pH 7.27 (7.35-7.45) L 03/05/18 17:37 ABG pCO2 at Pt Temp 65.6 mmHg (35-45) H* 03/05/18 17:37 ABG pO2 at Pt Temp 81.9 mmHg (80-100) 03/05/18 17:37 ABG HCO3 29.7 meq/L (22-26) H 03/05/18 17:37 ABG O2 Sat (Measured) 96.2 % (90-98.9) 03/05/18 17:37 ABG O2 Content No Result Required. 03/05/18 17:37 ABG Base Excess 2.2 meq/l (-2-2) H 03/05/18 17:37 Gualberto Test Positive 03/05/18 17:37 Methemoglobin 1.8 % (0.4-1.5) H 03/05/18 17:37 O2 Delivery Device No Result Required. 03/05/18 17:37 Oxygen Flow Rate Yes 03/05/18 17:37 Vent Mode No Result Required. 03/05/18 17:37 Vent Rate No Result Required. 03/05/18 17:37 Mechanical Rate No Result Required. 03/05/18 17:37 Pressure Support Vent No Result Required. 03/05/18 17:37 Sodium 137 mmol/L (136-145) 03/10/18 05:30 Potassium 3.5 mmol/L (3.5-5.1) 03/10/18 05:30 Chloride 101 mmol/L (98-107) 03/10/18 05:30 Carbon Dioxide 26 mmol/L (21-32) 03/10/18 05:30 Anion Gap 10 MMOL/L (8-16) 03/10/18 05:30 BUN 12 mg/dL (7-18) 03/10/18 05:30 Creatinine 0.7 mg/dL (0.55-1.02) 03/10/18 05:30 Creat Clearance w eGFR > 60 (>60) 03/10/18 05:30 POC Glucometer 110.25014 UNITS (80-120) 03/10/18 11:01 Random Glucose 88 mg/dL (74-106) 03/10/18 05:30 Hemoglobin A1c % 5.4 % (4.8-6.0) 03/06/18 05:30 Calcium 8.6 mg/dL (8.5-10.1) 03/10/18 05:30 Phosphorus 3.4 mg/dL (2.5-4.9) 03/06/18 05:30 Magnesium 2.3 mg/dL (1.8-2.4) 03/06/18 05:30 Total Bilirubin 0.5 mg/dL (0.2-1.0) 03/10/18 05:30 AST 72 U/L (15-37) H 03/10/18 05:30 ALT 66 U/L (12-78) 03/10/18 05:30 Alkaline Phosphatase 77 U/L (45-117) 03/10/18 05:30 Creatine Kinase 757 IU/L (26-192) H 03/10/18 05:30 Creatine Kinase Index 0.6 % (0.0-5.0) 03/10/18 05:30 CK-MB (CK-2) 4.90 ng/mL (0.5-3.6) H 03/10/18 05:30 Troponin I 0.11 ng/ml (0.00-0.05) H 03/10/18 05:30 Total Protein 7.5 g/dl (6.4-8.2) 03/10/18 05:30 Albumin 3.8 g/dl (3.4-5.0) 03/10/18 05:30 Triglycerides 80 mg/dL (35-160) 03/05/18 12:20 Cholesterol 120 mg/dL (50-200) 03/05/18 12:20 Total LDL Cholesterol 60 mg/dL (5-100) 03/05/18 12:20 HDL Cholesterol 50 mg/dL (40-60) 03/05/18 12:20 TSH 0.32 uIU/ml (0.358-3.74) L 03/05/18 12:20 Serum , Qual Negative 03/05/18 12:14 Urine Color Yellow 03/05/18 12:57 Urine Appearance Clear 03/05/18 12:57 Urine pH 5.0 (5.0-8.0) 03/05/18 12:57 Ur Specific [place] 1.012 (1.001-1.035) 03/05/18 12:57 Urine Protein Negative (NEGATIVE) 03/05/18 12:57 Urine Glucose (UA) 2+ (NEGATIVE) H 03/05/18 12:57 Urine Ketones Negative (NEGATIVE) 03/05/18 12:57 Urine Blood Negative (NEGATIVE) 03/05/18 12:57 Urine Nitrite Negative (NEGATIVE) 03/05/18 12:57 Urine Bilirubin Negative (<2.0 mg/dL) 03/05/18 12:57 Urine Urobilinogen Negative mg/dL (0.2-1.0) 03/05/18 12:57 Ur Leukocyte Esterase Negative (NEGATIVE) 03/05/18 12:57 Salicylates < 4.0 mg/dL 03/05/18 12:20 Opiates Screen Positive ng/ml (NKQLCP=862) 03/05/18 12:57 Methadone Screen Negative ng/ml (MHLUPW=278) 03/05/18 12:57 Acetaminophen < 2.0 ug/mL 03/05/18 12:20 Barbiturate Screen Negative ng/ml (VWRCIC=531) 03/05/18 12:57 Phencyclidine Screen Positive ng/ml (CUTOFF=25) 03/05/18 12:57 Ur Amphetamines Screen Negative ng/ml (WDIQIV=925) 03/05/18 12:57 MDMA (Ecstasy) Screen Negative ng/ml (AJJATJ=916) 03/05/18 12:57 Benzodiazepines Screen Negative ng/ml (QCNUZG=636) 03/05/18 12:57 Cocaine Screen Negative ng/ml (IUFMLR=236) 03/05/18 12:57 U Marijuana (THC) Screen Negative ng/ml (CUTOFF=50) 03/05/18 12:57 Acetone, Qual Trace (NEGATIVE) H 03/05/18 12:14 Blood Type B POSITIVE 03/05/18 20:40 Antibody Screen Negative 03/05/18 20:40 Imaging - Results Cat Scan: Report Reviewed Problem List - Problems (1) Nausea & vomiting Code(s): R11.2 - NAUSEA WITH VOMITING, UNSPECIFIED (2) Abdominal pain Code(s): R10.9 - UNSPECIFIED ABDOMINAL PAIN Assessment/Plan A 57F recovering from OD developed nausea, womiting and abdominal pain. No acute path on CT, labs. negative exam today. ? withdrawal symptoms. As discussed with the patient and her nurse, will address large amount of stool on the colon with Miralax-based bowel prep. Continue current diet. Observe.
[2018-03-10] MEDS ORDERED: POLYETHYLENE GLYCOL 3350 255 GM BTL PO ONE (12:15)
[2018-03-10] MEDS: SODIUM CHLORIDE 1,000 ML IV SCH (14:31)
[2018-03-10] MEDS: POLYETHYLENE GLYCOL 3350 119 GM BTL PO SCH ×2 (14:38→22:08)
[2018-03-10] MEDS: ATORVASTATIN CA 10 MG TABLET (FP) PO SCH (22:08)
[2018-03-11] MEDS ORDERED: hydrOXYzine HCL 25 MG TABLET (FP) PO ONE ×2 (00:01→20:45)
[2018-03-11] MEDS ORDERED: PT OWN MED DRAWER 7, Y5N ONE ×2 (01:48→09:07)
[2018-03-11] MEDS: HEPARIN NA (PORCINE) 5,000 UNITS/ML 1ML VIAL SQ SCH ×3 (05:46→22:28)
[2018-03-11] MEDS: GABAPENTIN 300 MG CAPSULE (FP) PO SCH ×3 (05:46→22:29)
[2018-03-11] MEDS: INSULIN SLIDING SCALE (NOVOLOG) 1 VIAL SQ SCH ×5 (06:10→22:23)
[2018-03-11] MEDS: SODIUM CHLORIDE 1,000 ML IV SCH ×2 (06:28→11:51)
[2018-03-11] MEDS: ASPIRIN 325 MG TABLET PO SCH (09:52)
[2018-03-11] MEDS: IMIPRAMINE HCL 25 MG TABLET (NON FORMULARY) PO SCH (09:52)
[2018-03-11] MEDS: morphine SO4 SUSTAINED ACTING 30 MG TABLET.SA PO SCH ×2 (09:53→22:29)
[2018-03-11] MEDS: VENLAFAXINE HCL 75 MG E.R. CAPSULES (FP) PO SCH (09:53)
[2018-03-11] MEDS: LISINOPRIL 20 MG TABLET (FP) PO SCH (09:53)
[2018-03-11] MEDS: BACITRACIN 15 GM TUBE TOPICAL OINTMENT TP SCH (09:55)
[2018-03-11] MEDS: amLODIPine BESYLATE 10 MG TABLET (FP) PO SCH (09:55)
[2018-03-11] MEDS: POLYETHYLENE GLYCOL 3350 119 GM BTL PO SCH ×3 (09:57→22:28)
--- NOTE | 2018-03-11 10:50 | PN ---
Progress Note, Physician - Current Medication List Current Medications: Active Medications Acetaminophen (Tylenol -) 650 mg PO Q6H PRN PRN Reason: PAIN LEVEL 1-5 Amlodipine Besylate (Norvasc -) 10 mg PO DAILY [facility] Last Admin: 03/11/18 09:55 Dose: 10 mg Aspirin (Asa -) 325 mg PO DAILY [facility] Last Admin: 03/11/18 09:52 Dose: 325 mg Atorvastatin Calcium (Lipitor -) 10 mg PO HS [facility] Last Admin: 03/10/18 22:08 Dose: 10 mg Bacitracin (Bacitracin -) 1 applic TP DAILY [facility] Last Admin: 03/11/18 09:55 Dose: 1 appful Gabapentin (Neurontin -) 300 mg PO TID [facility] Last Admin: 03/11/18 05:46 Dose: 300 mg Heparin Sodium (Porcine) (Heparin -) 5,000 unit SQ TID [facility] Last Admin: 03/11/18 05:46 Dose: 5,000 unit Sodium Chloride (Normal Saline -) 1,000 mls @ 125 mls/hr IV ASDIR [facility] Last Admin: 03/10/18 14:31 Dose: 125 mls/hr Imipramine HCl (Tofranil -) 50 mg PO DAILY [facility] Last Admin: 03/11/18 09:52 Dose: 50 mg Insulin Aspart (Novolog Vial Sliding Scale -) 1 vial SQ ACHS [facility]; Protocol Last Admin: 03/11/18 06:10 Dose: Not Given Lisinopril (Prinivil) 20 mg PO DAILY [facility] Last Admin: 03/11/18 09:53 Dose: 20 mg Morphine Sulfate (Morphine 10 Mg/5 Ml Liquid) 10 mg PO Q4H PRN PRN Reason: PAIN LEVEL 6-10 Last Admin: 03/10/18 06:01 Dose: 10 mg Morphine Sulfate (Ms Contin -) 30 mg PO BID [facility] Last Admin: 03/11/18 09:53 Dose: 30 mg Ondansetron HCl (Zofran Odt -) 4 mg SL Q6H PRN PRN Reason: NAUSEA Last Admin: 03/10/18 23:55 Dose: 4 mg Polyethylene Glycol (Miralax (For Daily Use) -) 17 gm PO BID [facility] Last Admin: 03/11/18 10:28 Dose: Not Given Venlafaxine HCl (Effexor Xr -) 150 mg PO DAILY@0800 [facility] Last Admin: 03/11/18 09:53 Dose: 150 mg - Objective Vital Signs: Vital Signs Temperature 98.6 F 03/11/18 08:38 Pulse Rate 73 03/11/18 08:38 Respiratory Rate 16 03/11/18 08:39 Blood Pressure 151/86 03/11/18 08:38 O2 Sat by Pulse Oximetry (%) 100 03/11/18 08:39 Labs: CBC, BMP 03/10/18 05:30 03/10/18 05:30 INR, PTT INR 1.10 (0.83-1.09) H 03/05/18 12:14 Problem List - Problems (1) Narcotic overdose Assessment/Plan: cleared by psych- not suicidal will have detox see the patient as well Dr Camarena to see if patient might be candidate for suboxone- patient wants to see detox doctor prior to be being discharge home i spoke to patient PMD Dr Garcia [phone] to keep her informed Code(s): T40.601A - POISONING BY UNSP NARCOTICS, ACCIDENTAL, INIT Qualifiers: Encounter type: initial encounter Injury intent: intentional self-harm Qualified Code(s): T40.602A - Poisoning by unspecified narcotics, intentional self-harm, initial encounter (2) Chronic bilateral low back pain Assessment/Plan: MS contin 30mg bid and on neurotin tid Code(s): M54.5 - LOW BACK PAIN; G89.29 - OTHER CHRONIC PAIN (3) Constipation Assessment/Plan: on miralax Code(s): K59.00 - CONSTIPATION, UNSPECIFIED (4) Hypothyroid Assessment/Plan: tsh noted synthroid dose decreased from 125 mcg to 100mcg daily Code(s): E03.9 - HYPOTHYROIDISM, UNSPECIFIED (5) Elevated CK Assessment/Plan: CK and trop trending down echo done normal ejection fraction aspirin and lipitor Code(s): R74.8 - ABNORMAL LEVELS OF OTHER SERUM ENZYMES
--- NOTE | 2018-03-11 13:56 | CONSULT ---
Consult Detox [facility] Reason for Current Admission/Consult: pt using morphine and overdosed on meds with suicidal intent - History History of Present Illness: 57 yo with h/o HTN, DM, on multiple meds, including morphine for back pain. Pt has been on this for 15 years- given by PCP- (could not access Istop to verify dose). Pt states that she has back pain and had been offered surgery which she refused in preference for pain control with morphine. Pt is getting morphine during this hospitalization relieving and Sx of opioid withdrawal. - History Source History Provided By: Patient - Alcohol/Substance Use Hx Alcohol Use: No - Past Medical History ...: No Psych: Yes: Depression Endocrine: Yes: Diabetes Mellitus COWS - Scale Resting Pulse: 0= [place] 80 or Below Sweatin= No chills or Flushing Restless Observation: 1= Difficult to Sit Still Pupil Size: 0= Normal to Room Light Bone or Joint Aches: 1= Mild Discomfort Runny Nose/ Eye Tearin= None GI Upset > 30mins: 0= None Tremor Observation: 0= None Yawning Observation: 0= None Anxiety or Irritability: 1=Feels Anxious/Irritable Goose Flesh Skin: 0=Smooth Skin COWS Score: 3 Assessment Plan - Diagnosis (1) Narcotic overdose Status: Acute Qualifiers: Encounter type: initial encounter Injury intent: intentional self-harm Qualified Code(s): T40.602A - Poisoning by unspecified narcotics, intentional self-harm, initial encounter (2) Suicidal overdose Status: Acute - Plan Plan: Given that pt had overdosed on morphine plus other medications- we would not recommend that she restarts morphine for pain control. Pt agrees to go to [facility] for detox. from opioids and to start Suboxone. When medically cleared and stable, please call [phone] to arrange for this transfer. Attempted unsuccessfully several times to reach Dr. Hardy.
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
[2018-03-11] MEDS: ATORVASTATIN CA 10 MG TABLET (FP) PO SCH (22:28)
[2018-03-12] MEDS: INSULIN SLIDING SCALE (NOVOLOG) 1 VIAL SQ SCH ×2 (06:30→11:17)
[2018-03-12] MEDS: HEPARIN NA (PORCINE) 5,000 UNITS/ML 1ML VIAL SQ SCH ×2 (06:30→14:06)
[2018-03-12] MEDS: GABAPENTIN 300 MG CAPSULE (FP) PO SCH ×2 (06:30→14:06)
[2018-03-12] MEDS ORDERED: LEVOTHYROXINE NA 100 MCG TABLET (FP) PO SCH (07:00)
[2018-03-12] MEDS ORDERED: LEVOTHYROXINE NA 112 MCG TABLET (FP) PO SCH (07:00)
[2018-03-12] MEDS ORDERED: PT OWN MED DRAWER 7, Y5N ONE (09:07)
[2018-03-12] MEDS: BACITRACIN 15 GM TUBE TOPICAL OINTMENT TP SCH (09:31)
[2018-03-12] MEDS: morphine SO4 SUSTAINED ACTING 30 MG TABLET.SA PO SCH (09:31)
[2018-03-12] MEDS: POLYETHYLENE GLYCOL 3350 119 GM BTL PO SCH (09:31)
[2018-03-12] MEDS: VENLAFAXINE HCL 75 MG E.R. CAPSULES (FP) PO SCH (09:31)
[2018-03-12] MEDS: ASPIRIN 325 MG TABLET PO SCH (09:31)
[2018-03-12] MEDS: amLODIPine BESYLATE 10 MG TABLET (FP) PO SCH (09:32)
[2018-03-12] MEDS: LISINOPRIL 20 MG TABLET (FP) PO SCH (09:32)
[2018-03-12] MEDS: IMIPRAMINE HCL 25 MG TABLET (NON FORMULARY) PO SCH (09:32)
[2018-03-12] MEDS: SODIUM CHLORIDE 1,000 ML IV SCH (11:19)
[2018-03-12 12:44] VITALS: BMI 27.4
[2018-03-12 14:13] VITALS: BP 144/88; PULSE 74; TEMP 98.7
== END 2018-03-12 18:12 | disposition other institution (70) | DRG 917 ==
LOC: JER 12:06 → JERBED 14:31 → JICU 18:46 → J8W 03-06 16:25 → J2W 03-09 17:54
PROVIDERS: ADMIT Family Medicine; ATTEND Family Medicine
DX: T40.2X2A Poisoning by other opioids, intentional self-harm, initial encounter (principal); J96.02 Acute respiratory failure with hypercapnia; F33.9 Major depressive disorder, recurrent, unspecified; R41.82 Altered mental status, unspecified; E11.9 Type 2 diabetes mellitus without complications; I10 Essential (primary) hypertension; E03.9 Hypothyroidism, unspecified; F41.8 Other specified anxiety disorders; M54.5 Low back pain; K59.00 Constipation, unspecified; R74.8 Abnormal levels of other serum enzymes; R10.9 Unspecified abdominal pain; F43.10 Post-traumatic stress disorder, unspecified
CPT/HCPCS: 36415; 36600; 70450-TC; 71045-TC-FY; 74177-TC; 80053; 80307; 81003; 82009; 82375; 82465; 82550; 82553; 82803; 82962; 83036; 83050; 83718; 83721; 83735; 84100; 84443; 84478; 84484; 84703; 85025; 85027; 85610; 86850; 86900; 86901; 90732; 93005; 93010; 93306-TC; 97116-GP; 97162-GP; 99285-25; G0009; J1644; J7030; Q0162

== ENCOUNTER 2018-03-12 20:27 | Inpatient (IN) | payer OTHER ==
[2018-03-12 21:51] VITALS: BMI 34.0
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
[2018-03-12] MEDS ORDERED: METHADONE HCL 10 MG TABLET (FOR DETOX USE ONLY) PO ONE ×2 (22:21→23:00)
[2018-03-12] MEDS ORDERED: MAGNESIUM CITRATE 300 ML BOTTLE PO PRN (22:21)
[2018-03-12] MEDS ORDERED: LOPERAMIDE HCL 2 MG CAPSULE PO PRN (22:21)
[2018-03-12] MEDS ORDERED: NICOTINE POLACRILEX 2 MG GUM BC PRN (22:21)
[2018-03-12] MEDS ORDERED: MENTHOL/PHENOL 1 EACH UD MM PRN (22:21)
[2018-03-12] MEDS ORDERED: ACETAMINOPHEN 325 MG TABLET (FP) PO PRN (22:21)
[2018-03-12] MEDS ORDERED: P-EPHED 60MG/TRIPROLIDI 2.5MG TABLET PO PRN (22:21)
[2018-03-12] MEDS ORDERED: MAGNESIUM HYDROX 2400MG/30ML ORAL SUSPENSION 30 ML CUP PO PRN (22:21)
[2018-03-12] MEDS ORDERED: IBUPROFEN 400 MG TABLET (FP) PO PRN (22:21)
[2018-03-12] MEDS ORDERED: guaiFENesin/D-METHORPHAN HB 10 ML UNIT-DOSE CUPS PO PRN (22:21)
[2018-03-12] MEDS ORDERED: MAG HYDROX/AL HYDROX/SIMETH 30 ML UNIT-DOSE CUP PO PRN (22:21)
[2018-03-13] MEDS: diazePAM 5 MG TABLET PO PRN ×3 (00:02→22:40)
[2018-03-13 00:07] LABS: URINE APPEARANCE CLEAR; URINE BILIRUBIN NEGATIVE (<2.0 mg/dL); URINE COLOR YELLOW; URINE GLUCOSE (UA) NEGATIVE (NEGATIVE); URINE KETONE NEGATIVE (NEGATIVE); URINE NITRITE NEGATIVE (NEGATIVE); URINE PROTEIN NEGATIVE (NEGATIVE); URINE UROBILINOGEN NEGATIVE mg/dL (0.2-1.0)
[2018-03-13 00:30] LABS: URINE LEUK ESTERASE 1+ (NEGATIVE)
[2018-03-13 00:56] LABS: EPI CELLS RARE /HPF (FEW); URINE BACTERIA MODERATE /hpf (NONE SEEN); URINE MUCUS RARE
[2018-03-13] MEDS ORDERED: GABAPENTIN 300 MG CAPSULE (FP) PO SCH (06:00)
[2018-03-13] MEDS: glipiZIDE 5 MG TABLET (FP) PO SCH ×2 (07:15→17:30)
[2018-03-13] MEDS: LEVOTHYROXINE NA 112 MCG TABLET (FP) PO SCH (07:20)
--- NOTE | 2018-03-13 07:33 | CONSULT ---
[facility] Psychiatric Consult - Data Date of interview: 03/13/18 Admission source: [facility] Identifying data: This is a 57 years old female, ligally blind, single mother of three, on SSD, living with family, unemployed, with psychiatric hospitalization history, with huistiry of Opioid dependency, reporting withrawal symptoms and seeking for detox. Substance Abuse History: - Smoking Cessation. Smoking history: Former smoker. Have you smoked in the past 12 months: Yes. Aproximately how many cigarettes per day: 1. Cigars Per Day: 0. Hx Chewing Tobacco Use: No. Initiated information on smoking cessation: Yes. 'Breaking Loose' booklet given: . - Substance & Tx. History. Hx Alcohol Use: No. Hx Substance Use: No. Substance Use Type: Prescribed (RX MORPHINE 60 MG ER TID PRN). Hx Substance Use Treatment: Yes (DOES NOT RECALL 29 YEARS AGO). - Substances Abused. MORPHINE SULFATE ER 60 MG. Route: Oral. Frequency: Daily. Amount used: 1-3 PILLS. Age of first use: 42. Date of Last Use: 03/12/18 Medical History: DM-2, Legally blind, Hyperlipidemia, Hypothyroiditis, Psychiatric History: PATIENT REPORTSM DEPRESSION, CARRIES mdd with history of unc;ear suicidal attempton about 10 years ago with following psychiatric admission. Currently taking: 'Wellbutrin XL 150mg poqd. Gabapentin 300mg po tid Physical/Sexual Abuse/Trauma History: Denies Additional Comment: 'Wellbutrin XL 150mg poqd. Gabapentin 300mg po tid Mental Status Exam - Mental Status Exam Alert and Oriented to: Place, Person Cognitive Function: Fair Mood: Apprehensive Affect: Flat Patient Behavior: Cooperative Speech Pattern: Appropriate Voice Loudness: Mildly Soft/Quiet Thought Process: Circumstantial Thought Disorder: Being Controlled Hallucinations: Denies Suicidal Ideation: Denies Homicidal Ideation: Denies Insight/Judgement: Fair Sleep: Difficulty falling asleep Appetite: Weight gain Muscle strength/Tone: Mild Hypotonicity Gait/Station: Deferred Additional Comments: 'Wellbutrin XL 150mg poqd. Gabapentin 300mg po tid Psychiatric Findings - Problem List ([place] 1, 2,3) (1) Suicidal overdose Current Visit: Yes Status: Acute Qualifiers: Encounter type: subsequent encounter Qualified Code(s): T50.902D - Poisoning by unspecified drugs, medicaments and biological substances, intentional self-harm, subsequent encounter (2) Chronic bilateral low back pain Current Visit: Yes Status: Chronic Qualifiers: Sciatica presence: unspecified whether sciatica present Qualified Code(s): M54.5 - Low back pain; G89.29 - Other chronic pain (3) Diabetes mellitus Current Visit: Yes Status: Chronic (4) HLD (hyperlipidemia) Current Visit: Yes Status: Chronic Qualifiers: Hyperlipidemia type: unspecified Qualified Code(s): E78.5 - Hyperlipidemia , unspecified (5) HTN (hypertension) Current Visit: Yes Status: Chronic Qualifiers: Hypertension type: unspecified Qualified Code(s): I10 - Essential (primary ) hypertension (6) Hypothyroidism Current Visit: Yes Status: Chronic Qualifiers: Hypothyroidism type: unspecified Qualified Code(s): E03.9 - Hypothyroidism , unspecified (7) Major depression, recurrent, chronic Current Visit: Yes Status: Chronic (8) Elevated CK Current Visit: No Status: Acute - Initial Treatment Plan Initial Treatment Plan: Effexor XL 150mg poqd. Gabapentin 300mg po tid
[2018-03-13] MEDS ORDERED: METHADONE HCL 10 MG TABLET (FOR DETOX USE ONLY) PO ONE (10:00)
[2018-03-13] MEDS: amLODIPine BESYLATE 10 MG TABLET (FP) PO SCH (10:03)
[2018-03-13] MEDS: PRENATAL VITAMINS W/ FOLIC ACID TABLET (FP) PO SCH (10:03)
[2018-03-13] MEDS: LISINOPRIL 5 MG TABLET (FP) PO SCH (10:03)
[2018-03-13] MEDS: NICOTINE 14 MG/24 HOURS TOPICAL PATCH TD SCH (10:05)
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
[2018-03-13] MEDS: VENLAFAXINE HCL 150 MG E.R. CAPSULE PO SCH (10:36)
[2018-03-13] MEDS: ASPIRIN 325 MG TABLET PO SCH (10:37)
[2018-03-13] MEDS: SILVER SULFADIAZINE 1% TOP CREAM 50 GM JAR TP SCH ×2 (13:44→22:45)
[2018-03-13] MEDS: GABAPENTIN 300 MG CAPSULE (FP) PO SCH ×2 (13:44→22:40)
[2018-03-13] MEDS: SULFAMETHOXAZOLE/TRIMETHOPRIM 800MG/160MG D.S. TABLET PO SCH ×2 (13:44→22:40)
--- NOTE | 2018-03-13 15:41 | EKG ---
Test Reason : Blood Pressure : / mmHG Vent. Rate : 079 BPM Atrial Rate : 079 BPM P-R Int : 168 ms QRS Dur : 088 ms QT Int : 396 ms P-R-T Axes : 066 019 031 degrees QTc Int : 454 ms NORMAL SINUS RHYTHM NORMAL ECG WHEN COMPARED WITH ECG OF 09-MAR-2018 15:51, T WAVE INVERSION NO LONGER EVIDENT IN ANTERIOR LEADS QT HAS SHORTENED Confirmed by ALIN BERGERON, RAHEL ([id number]) on 03/13/2018 3:41:39 PM Referred By: Confirmed By:RAHEL OGDEN MD
[2018-03-13] MEDS: ATORVASTATIN CA 10 MG TABLET (FP) PO SCH (22:40)
[2018-03-13] MEDS: THIAMINE HCL 100 MG TABLET (FP) PO SCH (22:40)
[2018-03-14] MEDS: GABAPENTIN 300 MG CAPSULE (FP) PO SCH ×3 (05:47→22:09)
[2018-03-14] MEDS: glipiZIDE 5 MG TABLET (FP) PO SCH ×2 (06:18→17:30)
[2018-03-14] MEDS: LEVOTHYROXINE NA 112 MCG TABLET (FP) PO SCH (06:18)
[2018-03-14] MEDS ORDERED: METHADONE HCL 5 MG TABLET (FOR DETOX USE ONLY) PO ONE (10:00)
[2018-03-14] MEDS: ASPIRIN 325 MG TABLET PO SCH (10:09)
[2018-03-14] MEDS: SULFAMETHOXAZOLE/TRIMETHOPRIM 800MG/160MG D.S. TABLET PO SCH ×2 (10:09→22:10)
[2018-03-14] MEDS: LISINOPRIL 5 MG TABLET (FP) PO SCH (10:09)
[2018-03-14] MEDS: PRENATAL VITAMINS W/ FOLIC ACID TABLET (FP) PO SCH (10:09)
[2018-03-14] MEDS: VENLAFAXINE HCL 150 MG E.R. CAPSULE PO SCH (10:09)
[2018-03-14] MEDS: NICOTINE 14 MG/24 HOURS TOPICAL PATCH TD SCH (10:10)
[2018-03-14] MEDS: amLODIPine BESYLATE 10 MG TABLET (FP) PO SCH (10:11)
--- NOTE | 2018-03-14 11:50 | PN ---
BHS COWS - Scale Resting Pulse: 0= [place] 80 or Below Sweatin= Chills/Flushing Restless Observation: 1= Difficult to Sit Still Pupil Size: 1= Pupils >than Normal Bone or Joint Aches: 2= Severe Diffuse Aches Runny Nose/ Eye Tearin= Nasal Congestion GI Upset > 30mins: 1= Stomach Cramp Tremor Observation of Outstretched Hands: 1= Tremor Many, Not Seen Yawning Observation: 0= None Anxiety or Irritability: 1=Feels Anxious/Irritable Goose Flesh Skin: 0=Smooth Skin COWS Score: 9 BHS Progress Note (SOAP) Subjective: INTERRUPTED SLEEP, SWEATS , LBP Objective: 03/14/18 11:44 Vital Signs Temperature 98.2 F 03/14/18 09:42 Pulse Rate 77 03/14/18 09:42 Respiratory Rate 18 03/14/18 09:42 Blood Pressure 118/71 03/14/18 09:42 O2 Sat by Pulse Oximetry (%) Laboratory Tests 03/12/18 03/13/18 03/13/18 Unknown 05:18 17:04 POC Glucometer 99 104 Urine Color Yellow Urine Appearance Clear Urine pH 6.0 Ur Specific [place] 1.014 Urine Protein Negative Urine Glucose (UA) Negative Urine Ketones Negative Urine Blood Negative Urine Nitrite Negative Urine Bilirubin Negative Urine Urobilinogen Negative Ur Leukocyte Esterase 1+ H Urine WBC (Auto) 19 Urine RBC (Auto) 1 Ur Epithelial Cells Rare Urine Bacteria Moderate Urine Mucus Rare 03/14/18 05:46 POC Glucometer 89 Urine Color Urine Appearance Urine pH Ur Specific [place] Urine Protein Urine Glucose (UA) Urine Ketones Urine Blood Urine Nitrite Urine Bilirubin Urine Urobilinogen Ur Leukocyte Esterase Urine WBC (Auto) Urine RBC (Auto) Ur Epithelial Cells Urine Bacteria Urine Mucus PENDING LABS PT AOX3 IN NAD AMBULATING Assessment: 03/14/18 11:51 WITHDRAWAL SX;S DM LBP LEGALLY BLIND Plan: CONT DETOX INCREASE FLUIDS MOTRIN PRN BGM DAILY CONT. WOUND CARE REPEAT U/A ,CX
[2018-03-14] MEDS: diazePAM 5 MG TABLET PO PRN ×2 (13:08→22:15)
[2018-03-14] MEDS: SILVER SULFADIAZINE 1% TOP CREAM 50 GM JAR TP SCH ×2 (15:13→23:37)
[2018-03-14] MEDS: THIAMINE HCL 100 MG TABLET (FP) PO SCH (22:09)
[2018-03-14] MEDS: ATORVASTATIN CA 10 MG TABLET (FP) PO SCH (22:10)
[2018-03-14] MEDS: MELATONIN 5 MG TABLETS PO PRN (22:13)
[2018-03-15] MEDS: diazePAM 5 MG TABLET PO PRN ×4 (05:25→22:20)
[2018-03-15] MEDS: GABAPENTIN 300 MG CAPSULE (FP) PO SCH ×3 (06:00→22:26)
[2018-03-15] MEDS: LEVOTHYROXINE NA 112 MCG TABLET (FP) PO SCH (06:05)
[2018-03-15] MEDS: glipiZIDE 5 MG TABLET (FP) PO SCH ×2 (06:05→17:30)
[2018-03-15] MEDS ORDERED: METHADONE HCL 5 MG TABLET (FOR DETOX USE ONLY) PO ONE (10:00)
[2018-03-15] MEDS: SULFAMETHOXAZOLE/TRIMETHOPRIM 800MG/160MG D.S. TABLET PO SCH ×2 (10:17→22:26)
[2018-03-15] MEDS: amLODIPine BESYLATE 10 MG TABLET (FP) PO SCH (10:17)
[2018-03-15] MEDS: PRENATAL VITAMINS W/ FOLIC ACID TABLET (FP) PO SCH (10:17)
[2018-03-15] MEDS: VENLAFAXINE HCL 150 MG E.R. CAPSULE PO SCH (10:17)
[2018-03-15] MEDS: LISINOPRIL 5 MG TABLET (FP) PO SCH (10:17)
[2018-03-15] MEDS: ASPIRIN 325 MG TABLET PO SCH (10:17)
[2018-03-15] MEDS: SILVER SULFADIAZINE 1% TOP CREAM 50 GM JAR TP SCH ×2 (10:18→22:27)
[2018-03-15] MEDS: NICOTINE 14 MG/24 HOURS TOPICAL PATCH TD SCH (10:18)
--- NOTE | 2018-03-15 13:39 | PN ---
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
[2018-03-15 17:55] LABS: URINE APPEARANCE CLEAR; URINE BILIRUBIN NEGATIVE (<2.0 mg/dL); URINE COLOR LTYELLOW; URINE GLUCOSE (UA) NEGATIVE (NEGATIVE); URINE KETONE NEGATIVE (NEGATIVE); URINE LEUK ESTERASE NEGATIVE (NEGATIVE); URINE NITRITE NEGATIVE (NEGATIVE); URINE PROTEIN NEGATIVE (NEGATIVE); URINE UROBILINOGEN NEGATIVE mg/dL (0.2-1.0)
[2018-03-15] MEDS: ATORVASTATIN CA 10 MG TABLET (FP) PO SCH (22:26)
[2018-03-15] MEDS: THIAMINE HCL 100 MG TABLET (FP) PO SCH (22:26)
[2018-03-16] MEDS: GABAPENTIN 300 MG CAPSULE (FP) PO SCH ×3 (05:56→22:47)
[2018-03-16] MEDS: LEVOTHYROXINE NA 112 MCG TABLET (FP) PO SCH (05:59)
[2018-03-16] MEDS: glipiZIDE 5 MG TABLET (FP) PO SCH ×2 (06:02→16:45)
[2018-03-16] MEDS: PRENATAL VITAMINS W/ FOLIC ACID TABLET (FP) PO SCH (09:48)
[2018-03-16] MEDS: amLODIPine BESYLATE 10 MG TABLET (FP) PO SCH (09:48)
[2018-03-16] MEDS: SULFAMETHOXAZOLE/TRIMETHOPRIM 800MG/160MG D.S. TABLET PO SCH ×2 (09:48→22:48)
[2018-03-16] MEDS: VENLAFAXINE HCL 150 MG E.R. CAPSULE PO SCH (09:48)
[2018-03-16] MEDS: LISINOPRIL 5 MG TABLET (FP) PO SCH (09:48)
[2018-03-16] MEDS: ASPIRIN 325 MG TABLET PO SCH (09:48)
[2018-03-16] MEDS: SILVER SULFADIAZINE 1% TOP CREAM 50 GM JAR TP SCH ×2 (09:49→22:47)
[2018-03-16] MEDS: NICOTINE 14 MG/24 HOURS TOPICAL PATCH TD SCH (09:49)
[2018-03-16] MEDS ORDERED: METHADONE HCL 10 MG TABLET (FOR DETOX USE ONLY) PO ONE (10:00)
--- NOTE | 2018-03-16 11:44 | PN ---
S Progress Note (SOAP) Subjective: feeling better no tremor less sweat no gi distress sleep better at night ankles sores appears in progress, no bleed no signs of infection cleaned with saline pad dry silverdin apply cover with sterile gauze secure with alonzo Objective: 03/16/18 11:46 Vital Signs Temperature 97.5 F L 03/16/18 09:21 Pulse Rate 74 03/16/18 09:21 Respiratory Rate 18 03/16/18 09:21 Blood Pressure 110/69 03/16/18 09:21 O2 Sat by Pulse Oximetry (%) Laboratory Last Values POC Glucometer 139 UNITS (80-120) 03/16/18 06:01 Urine Color Ltyellow 03/15/18 13:41 Urine Appearance Clear 03/15/18 13:41 Urine pH 6.0 (5.0-8.0) 03/15/18 13:41 Ur Specific [place] 1.013 (1.001-1.035) 03/15/18 13:41 Urine Protein Negative (NEGATIVE) 03/15/18 13:41 Urine Glucose (UA) Negative (NEGATIVE) 03/15/18 13:41 Urine Ketones Negative (NEGATIVE) 03/15/18 13:41 Urine Blood Negative (NEGATIVE) 03/15/18 13:41 Urine Nitrite Negative (NEGATIVE) 03/15/18 13:41 Urine Bilirubin Negative (<2.0 mg/dL) 03/15/18 13:41 Urine Urobilinogen Negative mg/dL (0.2-1.0) 03/15/18 13:41 Ur Leukocyte Esterase Negative (NEGATIVE) 03/15/18 13:41 Urine WBC (Auto) 19 /hpf (3-5) 03/12/18 Unknown Urine RBC (Auto) 1 /hpf (0-3) 03/12/18 Unknown Ur Epithelial Cells Rare /HPF (FEW) 03/12/18 Unknown Urine Bacteria Moderate /hpf (NONE SEEN) 03/12/18 Unknown Urine Mucus Rare 03/12/18 Unknown lab noted 03/16/18 11:48 see 03/05/18 and 03/10/18 lab reports Assessment: 03/16/18 11:48 mild withdrawal sx Plan: medically supervised detox
[2018-03-16] MEDS: THIAMINE HCL 100 MG TABLET (FP) PO SCH (22:47)
[2018-03-16] MEDS: ATORVASTATIN CA 10 MG TABLET (FP) PO SCH (22:47)
[2018-03-16] MEDS: MELATONIN 5 MG TABLETS PO PRN (22:49)
[2018-03-17] MEDS: GABAPENTIN 300 MG CAPSULE (FP) PO SCH (05:45)
[2018-03-17] MEDS ORDERED: METHADONE HCL 5 MG TABLET (FOR DETOX USE ONLY) PO ONE (06:00)
[2018-03-17] MEDS: glipiZIDE 5 MG TABLET (FP) PO SCH (06:52)
[2018-03-17] MEDS: LEVOTHYROXINE NA 112 MCG TABLET (FP) PO SCH (06:52)
[2018-03-17 09:16] VITALS: BP 116/58; PULSE 91; TEMP 97.9
--- NOTE | 2018-03-17 10:16 | DS ---
[facility] Detox Discharge Summary Admission Date: 03/12/18 Discharge Date: 03/17/18 - History Present History: Opioid Dependence Additional Comments: 57 years old female admitted on 03/12/18 for opiate withdrawal sx completed opiate detox regimen tolerated well denies opiate withdrawal sx alert oriented x 3 no acute distress aftercare as per arranged by the counselor Pertinent Past History: patient wants to return to her primary care physician for her medical mental and addiction - Physical Exam Results Vital Signs: Vital Signs Temperature 97.9 F 03/17/18 09:16 Pulse Rate 91 H 03/17/18 09:16 Respiratory Rate 20 03/17/18 09:16 Blood Pressure 116/58 03/17/18 09:16 O2 Sat by Pulse Oximetry (%) Pertinent Admission Physical Exam Findings: opiate withdrawal sx Vital Signs Temperature 97.9 F 03/17/18 09:16 Pulse Rate 91 H 03/17/18 09:16 Respiratory Rate 20 03/17/18 09:16 Blood Pressure 116/58 03/17/18 09:16 O2 Sat by Pulse Oximetry (%) Laboratory Last Values POC Glucometer 122 UNITS (80-120) 03/17/18 05:43 Urine Color Ltyellow 03/15/18 13:41 Urine Appearance Clear 03/15/18 13:41 Urine pH 6.0 (5.0-8.0) 03/15/18 13:41 Ur Specific [place] 1.013 (1.001-1.035) 03/15/18 13:41 Urine Protein Negative (NEGATIVE) 03/15/18 13:41 Urine Glucose (UA) Negative (NEGATIVE) 03/15/18 13:41 Urine Ketones Negative (NEGATIVE) 03/15/18 13:41 Urine Blood Negative (NEGATIVE) 03/15/18 13:41 Urine Nitrite Negative (NEGATIVE) 03/15/18 13:41 Urine Bilirubin Negative (<2.0 mg/dL) 03/15/18 13:41 Urine Urobilinogen Negative mg/dL (0.2-1.0) 03/15/18 13:41 Ur Leukocyte Esterase Negative (NEGATIVE) 03/15/18 13:41 Urine WBC (Auto) 19 /hpf (3-5) 03/12/18 Unknown Urine RBC (Auto) 1 /hpf (0-3) 03/12/18 Unknown Ur Epithelial Cells Rare /HPF (FEW) 03/12/18 Unknown Urine Bacteria Moderate /hpf (NONE SEEN) 03/12/18 Unknown Urine Mucus Rare 03/12/18 Unknown RPR Titer Cancelled 03/18/18 08:00 lab noted patient reported that she had a few close called that she wants to do good and be there for her family - Treatment Hospital Course: Detox Protocol Followed, Detoxed Safely, Responded well, Discharged Condition Good, Rehab Referral Accepted Patient has Accepted a Rehab Referral to: as per arranged by the counselor - Medication Discharge Medications: Ambulatory Orders Acetaminophen/Caffeine [Tension Headache Caplet] 1 each PO ASDIR 03/05/18 Ibuprofen [Motrin -] 600 mg PO TID PRN 03/05/18 Imipramine HCl 50 mg PO DAILY 03/05/18 Aspirin [ASA -] 325 mg PO DAILY tablet 03/11/18 Polyethylene Glycol 3350 [Miralax 119 gm Btl -] 17 gm PO BID bottle 03/11/18 Gabapentin [Neurontin -] 300 mg PO TID #90 capsule 03/13/18 Venlafaxine HCl ER [Effexor Xr -] 150 mg PO DAILY #30 cap.er.24h 03/13/18 Amlodipine Besylate [Norvasc -] 10 mg PO DAILY #30 tablet 03/16/18 Gabapentin [Neurontin] 300 mg PO TID #90 capsule 03/16/18 Glipizide 5 mg PO BID #60 tablet 03/16/18 Levothyroxine [Synthroid -] 112 mcg PO DAILY@0700 #30 tablet 03/16/18 Lisinopril [Zestril] 5 mg PO DAILY #30 tablet 03/16/18 Simvastatin 10 mg PO HS #30 tablet 03/16/18 Sulfamethoxazole/Trimethoprim [Bactrim DS -] 1 each PO BID #10 tablet 03/16/18 Silver Sulfadiazine 1% Top Cr [Silvadene -] 1 applic TP BID #1 jar 03/17/18 - Diagnosis (1) Constipation Status: Chronic Qualifiers: Constipation type: slow transit constipation Qualified Code(s): K59.01 - Slow transit constipation (2) Hypothyroid Status: Chronic Qualifiers: Hypothyroidism type: acquired Qualified Code(s): E03.9 - Hypothyroidism, unspecified (3) Opioid withdrawal Status: Acute (4) Diabetes mellitus Status: Chronic Qualifiers: Diabetes mellitus type: type 2 Diabetes mellitus complication status: with unspecified complications (5) HLD (hyperlipidemia) Status: Chronic Qualifiers: Hyperlipidemia type: unspecified Qualified Code(s): E78.5 - Hyperlipidemia , unspecified (6) HTN (hypertension) Status: Chronic Qualifiers: Hypertension type: unspecified Qualified Code(s): I10 - Essential (primary ) hypertension (7) Hypothyroidism Status: Chronic Qualifiers: Hypothyroidism type: acquired Qualified Code(s): E03.9 - Hypothyroidism, unspecified (8) Nicotine abuse Status: Acute - AMA Did Patient Leave Against Medical Advice: No
== END 2018-03-17 11:38 | disposition home or self-care (01) | DRG 897 ==
LOC: YASAS 20:27 → Y6N 22:41
PROC: HZ2ZZZZ Detoxification Services for Substance Abuse Treatment (ICD-10-PCS; principal; 2018-03-12)
DX: F11.23 Opioid dependence with withdrawal (principal); F33.1 Major depressive disorder, recurrent, moderate; F17.210 Nicotine dependence, cigarettes, uncomplicated; H54.8 Legal blindness, as defined in USA; I10 Essential (primary) hypertension; E78.5 Hyperlipidemia, unspecified; E03.9 Hypothyroidism, unspecified; K59.01 Slow transit constipation; M54.5 Low back pain; G89.29 Other chronic pain; R74.8 Abnormal levels of other serum enzymes; S90.822A Blister (nonthermal), left foot, initial encounter; S90.821A Blister (nonthermal), right foot, initial encounter; X58.XXXA Exposure to other specified factors, initial encounter; Y93.89 Activity, other specified; Y92.89 Other specified places as the place of occurrence of the external cause; Y99.8 Other external cause status; T50.902A Poisoning by unspecified drugs, medicaments and biological substances, intentional self-harm, initial encounter; Z89.022 Acquired absence of left finger(s)
CPT/HCPCS: 36415; 81003; 81015; 82962; 86593; 87086; 93005; 93010

== ENCOUNTER 2018-11-29 12:18 | Emergency (ER) | payer OTHER | END 2018-11-29 13:45 | disposition home or self-care (01) | LOC: JERFT 12:18 ==

== ENCOUNTER 2019-03-28 00:29 | Emergency (ER) | payer OTHER ==
[2019-03-28 00:51] VITALS: BMI 35.9
[2019-03-28] MEDS ORDERED: FAMOTIDINE 20 MG/50 ML IVPB 20 MG/50 ML MG IVPB ONE ×2 (01:06→02:42)
[2019-03-28] MEDS ORDERED: SODIUM CHLORIDE 1,000 ML IV STA (01:06)
[2019-03-28] MEDS ORDERED: ONDANSETRON 4 MG/2 ML VIAL IVPB ONE (01:06)
[2019-03-28] MEDS ORDERED: ACETAMINOPHEN 1000 MG/100 ML VIAL (NON FORMULARY) IVPB ONE (01:26)
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
[2019-03-28] MEDS ORDERED: Methylnaltrexone Bromide 12 MG/0.6 ML KIT SQ ONE (01:47)
[2019-03-28] MEDS ORDERED: ONDANSETRON 4 MG/2 ML VIAL ONE (02:41)
[2019-03-28] MEDS ORDERED: POLYETHYLENE GLYCOL 3350 119 GM BTL PO ONE (02:42)
--- NOTE | 2019-03-28 02:46 | PDOC ---
Attending Attestation - Resident Resident Name: Rhoda Roche - ED Attending Attestation I have performed the following: I have examined & evaluated the patient, The case was reviewed & discussed with the resident, I agree w/resident's findings & plan - HPI HPI: 03/28/19 02:45 Pt comes with nausea and constipation and abd pain. She drank some sour milk earlier by accident. - Physicial Exam PE: 03/28/19 05:20 Normal exam. Abd soft NT ND no pitting edema. Pt has normal heart and lung exam. - Medical Decision Making 03/28/19 03:25 All labs are normal. Pt has ketones in her urine. She will be hydrated. She is asking for some medicine to help her sleep. She will be given Benadryl IV. She will be discharged in the AM after hydration. 03/28/19 05:29 Pt given a dinner tray that was re-heated. If she tolerates PO, she can go. 03/28/19 05:39 Pt tolerated her food and she will be discharged home this AM. 03/28/19 06:43 Pt vomited a little and her AM vitals demonstrate elevated BP, as she received 1000ml saline IV. Pt was given meds: amlodipine and diovan and zofran for the nausea. SHe is now feeling better and she was reassured and she will go home and follow with her PMD. She understands that all her labs are normal and that she is stable for discharge home. Heart Score/ECG Review - ECG Intrepretation Rhythm: Regular Rhythm - [place]: Normal - P and MA Delta Wave(s) Present: No WPW: No - QRS Poor R Wave Progression: No Q Wave Present: No - ST and T Early Repolarization: No Non Specific ST-T Wave changes: No Flattened T Waves: No Prolonged Q-T Interval: No - ECG Impressions Normal ECG: Yes Non-specific ST Elevation: No Ischemic Changes: No Bradycardia: No Torsades valerie Pointes: No WPW: No
[2019-03-28 02:52] LABS: EPI CELLS 1.4 /HPF (0-5/HPF); HYALINE CASTS 1 /lpf (0-8); PH,URINE 6.5 (5.0-8.0); URINE APPEARANCE CLEAR; URINE BACTERIA 6.9 /hpf (NEGATIVE); URINE BILIRUBIN NEGATIVE (NEGATIVE); URINE COLOR YELLOW; URINE GLUCOSE (UA) NEGATIVE (NEGATIVE); URINE KETONE 1+ (NEGATIVE); URINE LEUK ESTERASE NEGATIVE (NEGATIVE); URINE NITRITE NEGATIVE (NEGATIVE); URINE PROTEIN 1+ (NEGATIVE); URINE RBC 1 /hpf (0-4); URINE UROBILINOGEN 0.2 mg/dL (0.2-1.0); URINE WBC 0 /hpf (0-5)
[2019-03-28 02:53] LABS: BASO % 0.7 % (0-2.0); HEMATOCRIT 35.6 % (32.4-45.2); HEMOGLOBIN 12.1 GM/dL (10.7-15.3); LYMPH % 25.5 % (8-40); MCH 29.7 pg (25.7-33.7); MCHC 33.9 g/dl (32.0-36.0); MEAN CELL VOLUME 87.7 fl (80-96); MEAN PLT VOLUME 9.8 fl (7.5-11.1); MONO % 5.1 % (3.8-10.2); NEUT % 68.7 % (42.8-82.8); PLATELET COUNT 248 K/MM3 (134-434); RBC 4.06 M/mm3 (3.60-5.2); WHITE BLOOD COUNT 7.9 K/mm3 (4.0-10.0)
[2019-03-28 03:15] LABS: ALBUMIN 4.7 g/dl (3.4-5.0); BILIRUBIN,TOTAL 0.4 mg/dL (0.2-1); BLOOD UREA NITROGEN 12.7 mg/dL (7-18); CALCIUM 9.9 mg/dL (8.5-10.1); CREATININE 0.8 mg/dL (0.55-1.3); TOT PROT 8.8 g/dl (6.4-8.2)
[2019-03-28] MEDS ORDERED: ACETAMINOPHEN INJECTION 100 ML IVPB ONE (03:41)
[2019-03-28] MEDS ORDERED: ONDANSETRON *ODT* 4 MG TABLET SL ONE (06:00)
[2019-03-28] MEDS ORDERED: amLODIPine BESYLATE 10 MG TABLET (FP) PO ONE (06:01)
[2019-03-28 06:16] VITALS: TEMP 98.3
[2019-03-28] MEDS ORDERED: amLODIPine BESYLATE 5 MG TABLET (FP) ONE (06:18)
[2019-03-28] MEDS ORDERED: ONDANSETRON *ODT* 4 MG TABLET ONE (06:18)
[2019-03-28] MEDS ORDERED: VALSARTAN 80 MG TABLET (UD) PO ONE (06:22)
[2019-03-28] MEDS ORDERED: VALSARTAN 40 MG TABLET (FP) PO ONE (06:23)
[2019-03-28] MEDS ORDERED: VALSARTAN 80 MG TABLET (UD) ONE (06:25)
[2019-03-28 06:50] VITALS: BP 173/78; PULSE 75
--- NOTE | 2019-03-29 16:53 | EKG ---
Test Reason : Blood Pressure : / mmHG Vent. Rate : 071 BPM Atrial Rate : 071 BPM P-R Int : 168 ms QRS Dur : 092 ms QT Int : 414 ms P-R-T Axes : 056 002 006 degrees QTc Int : 449 ms SINUS RHYTHM WITH MARKED SINUS ARRHYTHMIA OTHERWISE NORMAL ECG WHEN COMPARED WITH ECG OF 12-MAR-2018 23:40, NO SIGNIFICANT CHANGE WAS FOUND Confirmed by MARISOL GHOTRA MD ([id number]) on 03/29/2019 4:52:59 PM Referred By: Confirmed By:MARISOL GHOTRA MD
== END 2019-03-28 06:52 | disposition home or self-care (01) ==
LOC: JER 00:29
PROC: 3E033GC Introduction of Other Therapeutic Substance into Peripheral Vein, Percutaneous Approach (ICD-10-PCS; principal; 2019-03-28)
PROC: 3E033NZ Introduction of Analgesics, Hypnotics, Sedatives into Peripheral Vein, Percutaneous Approach (ICD-10-PCS; 2019-03-28)
PROC: 3E033GC Introduction of Other Therapeutic Substance into Peripheral Vein, Percutaneous Approach (ICD-10-PCS; 2019-03-28)
PROC: 3E033GC Introduction of Other Therapeutic Substance into Peripheral Vein, Percutaneous Approach (ICD-10-PCS; 2019-03-28)
DX: R11.2 Nausea with vomiting, unspecified (principal); I10 Essential (primary) hypertension; E78.00 Pure hypercholesterolemia, unspecified; E11.9 Type 2 diabetes mellitus without complications; Z79.84 Long term (current) use of oral hypoglycemic drugs; F17.210 Nicotine dependence, cigarettes, uncomplicated; Z89.021 Acquired absence of right finger(s); Z90.49 Acquired absence of other specified parts of digestive tract; Z88.1 Allergy status to other antibiotic agents; Z88.6 Allergy status to analgesic agent
CPT/HCPCS: 36415; 80053; 81003; 83605; 83690; 84484; 85025; 93005; 93010; 96365; 96375; 99283-25; J0131; J7030; Q0162

== ENCOUNTER 2019-03-29 05:15 | Inpatient (IN) | payer OTHER ==
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
[2019-03-29] MEDS ORDERED: VALSARTAN 80 MG TABLET (UD) PO ONE (05:47)
[2019-03-29] MEDS ORDERED: HYDROCHLOROTHIAZIDE 50 MG TABLET PO ONE (05:47)
[2019-03-29] MEDS ORDERED: ONDANSETRON 4 MG/2 ML VIAL IVPB ONE (05:48)
[2019-03-29] MEDS ORDERED: SODIUM CHLORIDE 0.9% 500 ML INFUS.BAG IV ONE (05:48)
[2019-03-29] MEDS ORDERED: HYDROCHLOROTHIAZIDE 25 MG TABLET (FP) ONE (06:02)
[2019-03-29] MEDS ORDERED: VALSARTAN 80 MG TABLET (UD) ONE (06:02)
[2019-03-29 06:16] LABS: BASO % 1.3 % (0-2.0); EOS % 0.1 % (0-4.5); HEMATOCRIT 40.3 % (32.4-45.2); HEMOGLOBIN 13.9 GM/dL (10.7-15.3); MCH 29.9 pg (25.7-33.7); MCHC 34.5 g/dl (32.0-36.0); MEAN CELL VOLUME 86.7 fl (80-96); MEAN PLT VOLUME 9.4 fl (7.5-11.1); MONO % 5.6 % (3.8-10.2); PLATELET COUNT 289 K/MM3 (134-434); RBC 4.64 M/mm3 (3.60-5.2); RDW 14.2 % (11.6-15.6); WHITE BLOOD COUNT 7.5 K/mm3 (4.0-10.0)
[2019-03-29 06:30] LABS: INR 1.13 (0.83-1.09); PROTHROMBIN TIME (PATIENT) 13.3 SEC (9.7-13.0)
[2019-03-29 06:33] LABS: ACTIVATED PTT 30.6 SECONDS (25.2-36.5)
[2019-03-29 06:49] LABS: ALBUMIN 5.2 g/dl (3.4-5.0); BILIRUBIN,TOTAL 0.6 mg/dL (0.2-1); BLOOD UREA NITROGEN 12.3 mg/dL (7-18); CALCIUM 10.6 mg/dL (8.5-10.1); CREATININE 0.8 mg/dL (0.55-1.3); POTASSIUM 3.8 mmol/L (3.5-5.1); TOT PROT 9.7 g/dl (6.4-8.2)
[2019-03-29] MEDS ORDERED: CLOPIDOGREL BISULFATE 300 MG TABLET PO ONE (07:03)
[2019-03-29] MEDS ORDERED: ASPIRIN 81 MG CHEWABLE TABLETS PO ONE (07:03)
[2019-03-29] MEDS ORDERED: ASPIRIN 81 MG CHEWABLE TABLETS ONE (07:22)
[2019-03-29 07:48] LABS: URINE APPEARANCE Clear; URINE BILIRUBIN 1+ (NEGATIVE); URINE COLOR Yellow; URINE GLUCOSE (UA) Negative (NEGATIVE); URINE KETONE 2+ (NEGATIVE); URINE LEUK ESTERASE Negative (NEGATIVE); URINE NITRITE Negative (NEGATIVE); URINE PROTEIN 3+ (NEGATIVE)
[2019-03-29] MEDS ORDERED: ONDANSETRON 4 MG/2 ML VIAL IVPUSH ONE (10:25)
[2019-03-29] MEDS ORDERED: ONDANSETRON 4 MG/2 ML VIAL ONE (10:27)
--- NOTE | 2019-03-29 10:32 | PDOC ---
*Physical Exam - Vital Signs Last Vital Signs Temp Pulse Resp BP Pulse Ox 98.8 F 105 H 18 179/101 H 98 03/29/19 07:08 03/29/19 09:56 03/29/19 09:56 03/29/19 09:56 03/29/19 09:56 ED Treatment Course - LABORATORY CBC & Chemistry Diagram: 03/29/19 06:00 03/29/19 06:00 - ADDITIONAL ORDERS Additional order review: Laboratory Results 03/29/19 03/29/19 03/29/19 07:00 06:00 06:00 PT with INR INR PTT (Actin FS) Sodium 138 Potassium 3.8 Chloride 101 Carbon Dioxide 26 Anion Gap 12 BUN 12.3 Creatinine 0.8 Est GFR (CKD-EPI)AfAm 95.52 Est GFR (CKD-EPI)NonAf 82.42 Random Glucose 141 H Calcium 10.6 H Total Bilirubin 0.6 AST 49 H ALT 48 Alkaline Phosphatase 100 Creatine Kinase 822 H Creatine Kinase Index 1.0 CK-MB (CK-2) 8.6 H Troponin I 0.09 H Total Protein 9.7 H Albumin 5.2 H Lipase 52 L Urine Color Yellow Urine Appearance Clear Urine pH 7.0 Ur Specific [place] 1.025 Urine Protein 3+ H Urine Glucose (UA) Negative Urine Ketones 2+ H Urine Blood 2+ H Urine Nitrite Negative Urine Bilirubin 1+ H Urine Urobilinogen 1.0 Ur Leukocyte Esterase Negative 03/29/19 06:00 PT with INR 13.30 H INR 1.13 H PTT (Actin FS) 30.6 Sodium Potassium Chloride Carbon Dioxide Anion Gap BUN Creatinine Est GFR (CKD-EPI)AfAm Est GFR (CKD-EPI)NonAf Random Glucose Calcium Total Bilirubin AST ALT Alkaline Phosphatase Creatine Kinase Creatine Kinase Index CK-MB (CK-2) Troponin I Total Protein Albumin Lipase Urine Color Urine Appearance Urine pH Ur Specific [place] Urine Protein Urine Glucose (UA) Urine Ketones Urine Blood Urine Nitrite Urine Bilirubin Urine Urobilinogen Ur Leukocyte Esterase 03/29/19 06:00 RBC 4.64 MCV 86.7 MCHC 34.5 RDW 14.2 MPV 9.4 Neutrophils % 61.0 Lymphocytes % 32.0 D Monocytes % 5.6 Eosinophils % 0.1 D Basophils % 1.3 - Medications Given in the ED: ED Medications Discontinued Medications Generic Name Dose Route Start Last Admin Trade Name Freq PRN Reason Stop Dose Admin Aspirin 162 mg 03/29/19 07:03 03/29/19 07:30 Asa - PO 03/29/19 07:04 162 mg ONCE ONE Administration Clopidogrel Bisulfate 600 mg 03/29/19 07:03 03/29/19 07:39 Plavix - PO 03/29/19 07:04 Not Given ONCE ONE Hydrochlorothiazide 50 mg 03/29/19 05:47 03/29/19 06:10 Hctz - PO 03/29/19 05:48 50 mg ONCE ONE Administration Ondansetron HCl 4 mg 03/29/19 05:48 03/29/19 05:59 Zofran Injection IVPB 03/29/19 05:49 4 mg ONCE ONE Administration Sodium Chloride 1,000 ml 03/29/19 05:48 03/29/19 05:59 Normal Saline - IV 03/29/19 05:49 1,000 ml ONCE ONE Administration Valsartan 80 mg 03/29/19 05:47 03/29/19 06:10 Diovan - PO 03/29/19 05:48 80 mg ONCE ONE Administration Medical Decision Making - Medical Decision Making 03/29/19 10:[address] Judge [address] abdomen and pelvis small hiatal hernia myomatous uterus s/p cholecystectomy Pt still nauseous will get zofran 4mg and repeat EKG TVUS pending 03/29/19 11:[address] Howard's service. 03/29/19 11:33 TVUS results -heterogenous myometrium including patient services representative myomas right and left ovaries were not visualized no adnexal mass no free fluid in the pelvis Discharge - Follow up/Referral - Patient Discharge Instructions - Post Discharge Activity
[2019-03-29] MEDS ORDERED: clonazePAM 0.5 MG TABLET ONE (12:15)
[2019-03-29] MEDS ORDERED: clonazePAM 0.5 MG TABLET PO ONE ×2 (12:16→18:54)
--- NOTE | 2019-03-29 12:53 | HP ---
Admitting History and Physical - Primary Care Physician PCP: Kait Page - Admission Chief Complaint: nausea, vomiting History of Present Illness: Patient is a 58 y/o female with past medical history of anxiety, HTN, DM, congenital blindness, PTSD. Patient presented to ER with complaints of epigastric pain with nausea and vomiting. Patient states on Saturday she drank "spoiled milk" and vomited one time. After patient began to develop epigastric pain accompanied with nausea and bilious, non-bloody vomiting. Patient has poor appetite and was unable to keep food down. She also states having vaginal bleeding 1 month ago. History Source: Patient Limitations to Obtaining History: No Limitations - Past Medical History Cardiovascular: Yes: HTN Psych: Yes: Anxiety, Depression Endocrine: Yes: Diabetes Mellitus - Smoking History Smoking history: Unknown if ever smoked Have you smoked in the past 12 months: Yes Aproximately how many cigarettes per day: 1 - Alcohol/Substance Use Hx Alcohol Use: No - Social History ADL: Independent History of Recent Travel: No Home Medications - Allergies Allergies/Adverse Reactions: Allergies Allergy/AdvReac Type Severity Reaction Status Date / Time amoxicillin [From Augmentin] Allergy Verified 03/29/19 06:28 clavulanic acid Allergy Verified 03/29/19 06:28 [From Augmentin] ketorolac [From Toradol] Allergy Verified 03/29/19 06:28 - Home Medications Home Medications: Ambulatory Orders Acetaminophen/Caffeine [Tension Headache Caplet] 1 each PO ASDIR 03/05/18 Ibuprofen [Motrin -] 600 mg PO TID PRN 03/05/18 Imipramine HCl 50 mg PO HS 03/05/18 Aspirin [ASA -] 325 mg PO DAILY tablet 03/11/18 Venlafaxine HCl ER [Effexor Xr -] 150 mg PO DAILY #30 cap.er.24h 03/13/18 Glipizide 5 mg PO BID #60 tablet 03/16/18 Lisinopril [Zestril] 5 mg PO DAILY #30 tablet 03/16/18 Simvastatin 10 mg PO HS #30 tablet 03/16/18 Acetaminophen 1,000 gm PO TID #30 tab 11/29/18 Bromfenac Sodium [Prolensa] 1 drop OS ASDIR 03/29/19 Clonazepam 1 tab PO DAILY 03/29/19 Levothyroxine [Synthroid -] 125 mcg PO DAILY@0700 03/29/19 Moxifloxacin HCl [Moxifloxacin] 1 drop OU ASDIR 03/29/19 Pioglitazone HCl [Actos] 1 tab PO DAILY 03/29/19 Review of Systems - Review of Systems Constitutional: reports: Loss of Appetite, Weakness Eyes: reports: No Symptoms HENT: reports: No Symptoms Neck: reports: No Symptoms Cardiovascular: reports: Palpitations, Shortness of Breath Respiratory: reports: SOB on Exertion Gastrointestinal: reports: Abdominal Pain, Constipation, Nausea, Rectal Bleeding , Vomiting Genitourinary: reports: Vaginal Bleeding Breasts: reports: No Symptoms Reported Musculoskeletal: reports: Back Pain Integumentary: reports: No Symptoms Neurological: reports: No Symptoms Endocrine: reports: No Symptoms Hematology/Lymphatic: reports: No Symptoms Psychiatric: reports: No Symptoms Physical Examination Vital Signs: Vital Signs Temperature 98.8 F 03/29/19 07:08 Pulse Rate 81 03/29/19 12:28 Respiratory Rate 18 03/29/19 12:28 Blood Pressure 150/83 03/29/19 12:28 O2 Sat by Pulse Oximetry (%) 98 03/29/19 09:56 Constitutional: Yes: No Distress, Calm Eyes: Yes: Conjunctiva Clear HENT: Yes: Atraumatic Neck: Yes: Supple Cardiovascular: Yes: Regular Rate and Rhythm Respiratory: Yes: Regular, CTA Bilaterally Gastrointestinal: Yes: Normal Bowel Sounds, Soft, Tenderness (diffuse) Musculoskeletal: Yes: Back Pain Extremities: Yes: WNL Edema: No Neurological: Yes: Alert, Oriented Psychiatric: Yes: Alert, Oriented Labs: CBC, BMP 03/29/19 06:00 03/29/19 06:00 Imaging - Results Cat Scan: Report Reviewed Ultrasound: Report Reviewed Problem List - Problems (1) Abdominal pain Assessment/Plan: -GI consult -Abd/pelvic CT scan shows s/p cholecystectomy -IV hydration -NPO except meds Code(s): R10.9 - UNSPECIFIED ABDOMINAL PAIN (2) Nausea & vomiting Assessment/Plan: -Zofran -NPO -IV hydration Code(s): R11.2 - NAUSEA WITH VOMITING, UNSPECIFIED Qualifiers: Vomiting type: unspecified Vomiting Intractability: non-intractable Qualified Code(s): R11.2 - Nausea with vomiting, unspecified (3) Diabetes mellitus Assessment/Plan: -BGM ACHS -ISS -Glipizide and Actos -HgA1c Code(s): E11.9 - TYPE 2 DIABETES MELLITUS WITHOUT COMPLICATIONS Qualifiers: Diabetes mellitus type: type 2 Diabetes mellitus complication status: with unspecified complications (4) HLD (hyperlipidemia) Assessment/Plan: -Simvastatin Code(s): E78.5 - HYPERLIPIDEMIA, UNSPECIFIED Qualifiers: Hyperlipidemia type: unspecified Qualified Code(s): E78.5 - Hyperlipidemia , unspecified (5) HTN (hypertension) Assessment/Plan: -Lisinopril Code(s): I10 - ESSENTIAL (PRIMARY) HYPERTENSION Qualifiers: Hypertension type: unspecified Qualified Code(s): I10 - Essential (primary ) hypertension (6) Hypothyroidism Assessment/Plan: -Levothyroxine Code(s): E03.9 - HYPOTHYROIDISM, UNSPECIFIED Qualifiers: Hypothyroidism type: acquired Qualified Code(s): E03.9 - Hypothyroidism, unspecified (7) Elevated troponin Assessment/Plan: -Cardiology consult -tele monitoring -Trop 0.09, 0.07 -monitor troponin Code(s): R74.8 - ABNORMAL LEVELS OF OTHER SERUM ENZYMES (8) Elevated CK Assessment/Plan: -CK 882 -monitor CK level Code(s): R74.8 - ABNORMAL LEVELS OF OTHER SERUM ENZYMES (9) Vaginal bleeding Assessment/Plan: -NONPROFIT FUNDRAISER consult -Transvaginal US shows myomatous uterus Code(s): N93.9 - ABNORMAL UTERINE AND VAGINAL BLEEDING, UNSPECIFIED Assessment/Plan see problem list dvt ppx
--- NOTE | 2019-03-29 13:15 | CON.CARD ---
Cardiology Consult (text) - Consultation Consultation Note: Chief Complaint: n/v, abd pain History of Present Illness: 58F h/o DM, HTN, Hypothyroidism, PTSD, and congenital blindness/cataract p/w n/v , abd pain. Sxs for past few days, has been very stressed with home issues. No cp sob palps dizzy loc pnd orthopnea le edema. Cardio consulted for elevated trops. - Past Medical History ...: No Psych: Yes: Depression Endocrine: Yes: Diabetes Mellitus cholecystectomy - Alcohol/Substance Use Hx Alcohol Use: No - Smoking History Smoking history: Never smoked Have you smoked in the past 12 months: No - Social History Usual Living Arrangement: With Child Home Medications - Allergies Allergies/Adverse Reactions: Allergies Allergy/AdvReac Type Severity Reaction Status Date / Time amoxicillin [From Augmentin] Allergy Verified 03/29/19 06:28 clavulanic acid Allergy Verified 03/29/19 06:28 [From Augmentin] ketorolac [From Toradol] Allergy Verified 03/29/19 06:28 - Home Medications Home Medications Medication Instructions Recorded Acetaminophen/Caffeine [Tension 1 each PO ASDIR 03/05/18 Headache Caplet] Ibuprofen [Motrin -] 600 mg PO TID PRN 03/05/18 Imipramine HCl 50 mg PO HS 03/05/18 Aspirin [ASA -] 325 mg PO DAILY tablet 03/11/18 Venlafaxine HCl ER [Effexor Xr -] 150 mg PO DAILY #30 cap.er.24h 03/13/18 Glipizide 5 mg PO BID #60 tablet 03/16/18 Lisinopril [Zestril] 5 mg PO DAILY #30 tablet 03/16/18 Simvastatin 10 mg PO HS #30 tablet 03/16/18 Acetaminophen 1,000 gm PO TID #30 tab 11/29/18 Bromfenac Sodium [Prolensa] 1 drop OS ASDIR 03/29/19 Clonazepam 1 tab PO DAILY 03/29/19 Levothyroxine [Synthroid -] 125 mcg PO DAILY@0700 03/29/19 Moxifloxacin HCl [Moxifloxacin] 1 drop OU ASDIR 03/29/19 Pioglitazone HCl [Actos] 1 tab PO DAILY 03/29/19 Family Disease History - Family Disease History Family History: Unremarkable Review of Systems - Review of Systems Constitutional: reports: No Symptoms Eyes: reports: No Symptoms HENT: reports: No Symptoms Neck: reports: No Symptoms Cardiovascular: reports: No Symptoms Respiratory: reports: No Symptoms Genitourinary: reports: No Symptoms Musculoskeletal: reports: No Symptoms Integumentary: reports: No Symptoms Neurological: reports: No Symptoms Endocrine: reports: No Symptoms Hematology/Lymphatic: reports: No Symptoms Psychiatric: reports: No Symptoms Vital Signs: Vital Signs Period Temp Pulse Resp BP Sys/Cerna Pulse Ox Last 24 Hr 98.8 F-98.9 F 81-105 18-18 150-184/83-110 97-100 Constitutional: Yes: Well Nourished, No Distress, Calm Eyes: Yes: Conjunctiva Clear, EOM Intact HENT: Yes: Atraumatic, Normocephalic Neck: Yes: Supple, Trachea Midline Respiratory: cta bl nl eff Gastrointestinal: Yes: Normal Bowel Sounds, Soft Cardiovascular: Yes: Regular Rate and Rhythm JVD: No Heart Sounds: Yes: S1, S2 Edema: No Peripheral Pulses: 2+ Left Doralis Pedis, 2+ Right Dorsalis Pedis Integumentary: no jaundice diaphoresis Neurological: Yes: Alert, Oriented Psychiatric: Yes: Alert, Oriented Laboratory Last Values WBC 7.5 K/mm3 (4.0-10.0) 03/29/19 06:00 RBC 4.64 M/mm3 (3.60-5.2) 03/29/19 06:00 Hgb 13.9 GM/dL (10.7-15.3) 03/29/19 06:00 Hct 40.3 % (32.4-45.2) 03/29/19 06:00 MCV 86.7 fl (80-96) 03/29/19 06:00 MCH 29.9 pg (25.7-33.7) 03/29/19 06:00 MCHC 34.5 g/dl (32.0-36.0) 03/29/19 06:00 RDW 14.2 % (11.6-15.6) 03/29/19 06:00 Plt Count 289 K/MM3 (134-434) 03/29/19 06:00 MPV 9.4 fl (7.5-11.1) 03/29/19 06:00 Absolute Neuts (auto) 4.6 K/mm3 (1.5-8.0) 03/29/19 06:00 Neutrophils % 61.0 % (42.8-82.8) 03/29/19 06:00 Lymphocytes % 32.0 % (8-40) D 03/29/19 06:00 Monocytes % 5.6 % (3.8-10.2) 03/29/19 06:00 Eosinophils % 0.1 % (0-4.5) D 03/29/19 06:00 Basophils % 1.3 % (0-2.0) 03/29/19 06:00 Nucleated RBC % 0 % (0-0) 03/29/19 06:00 PT with INR 13.30 SEC (9.7-13.0) H 03/29/19 06:00 INR 1.13 (0.83-1.09) H 03/29/19 06:00 PTT (Actin FS) 30.6 SECONDS (25.2-36.5) 03/29/19 06:00 Sodium 138 mmol/L (136-145) 03/29/19 06:00 Potassium 3.8 mmol/L (3.5-5.1) 03/29/19 06:00 Chloride 101 mmol/L (98-107) 03/29/19 06:00 Carbon Dioxide 26 mmol/L (21-32) 03/29/19 06:00 Anion Gap 12 MMOL/L (8-16) 03/29/19 06:00 BUN 12.3 mg/dL (7-18) 03/29/19 06:00 Creatinine 0.8 mg/dL (0.55-1.3) 03/29/19 06:00 Est GFR (CKD-EPI)AfAm 95.52 03/29/19 06:00 Est GFR (CKD-EPI)NonAf 82.42 03/29/19 06:00 Random Glucose 141 mg/dL (74-106) H 03/29/19 06:00 Calcium 10.6 mg/dL (8.5-10.1) H 03/29/19 06:00 Total Bilirubin 0.6 mg/dL (0.2-1) 03/29/19 06:00 AST 49 U/L (15-37) H 03/29/19 06:00 ALT 48 U/L (13-61) 03/29/19 06:00 Alkaline Phosphatase 100 U/L (45-117) 03/29/19 06:00 Creatine Kinase 822 U/L (26-192) H 03/29/19 06:00 Creatine Kinase Index 1.0 % (0.0-5.0) 03/29/19 06:00 CK-MB (CK-2) 8.6 ng/mL (0.5-3.6) H 03/29/19 06:00 Troponin I 0.07 ng/ml (0.00-0.05) H 03/29/19 11:05 Total Protein 9.7 g/dl (6.4-8.2) H 03/29/19 06:00 Albumin 5.2 g/dl (3.4-5.0) H 03/29/19 06:00 Lipase 52 U/L (73-393) L 03/29/19 06:00 Urine Color Yellow 03/29/19 07:00 Urine Appearance Clear 03/29/19 07:00 Urine pH 7.0 (5.0-8.0) 03/29/19 07:00 Ur Specific [place] 1.025 (1.010-1.035) 03/29/19 07:00 Urine Protein 3+ (NEGATIVE) H 03/29/19 07:00 Urine Glucose (UA) Negative (NEGATIVE) 03/29/19 07:00 Urine Ketones 2+ (NEGATIVE) H 03/29/19 07:00 Urine Blood 2+ (NEGATIVE) H 03/29/19 07:00 Urine Nitrite Negative (NEGATIVE) 03/29/19 07:00 Urine Bilirubin 1+ (NEGATIVE) H 03/29/19 07:00 Urine Urobilinogen 1.0 mg/dL (0.2-1.0) 03/29/19 07:00 Ur Leukocyte Esterase Negative (NEGATIVE) 03/29/19 07:00 ecg: sr nl intervals no ischemic changes echo 03/2018: nl lv/rv, mild tr a/p: 58F h/o DM, HTN, Hypothyroidism, PTSD, and congenital blindness/cataract p/ w n/v, abd pain. abd pain, n/v: -GI eval pending + troponin - borderline trop elevation with flat trend and nl ckmb index, similar to prior baseline values, not c/w acs. ECG unremarkable. Check echo. HTN - stable on lisinopril in past but bp elevated here in ER. Pt reports she is very stressed. Cont home med and monitor. May need additional agent if bp remains elevated.
[2019-03-29 13:18] VITALS: BMI 37.5
[2019-03-29] MEDS ORDERED: IBUPROFEN 600 MG TABLET (FP) PO PRN (15:35)
--- NOTE | 2019-03-29 16:44 | EKG ---
Test Reason : Blood Pressure : / mmHG Vent. Rate : 084 BPM Atrial Rate : 084 BPM P-R Int : 168 ms QRS Dur : 090 ms QT Int : 384 ms P-R-T Axes : 058 -05 028 degrees QTc Int : 453 ms NORMAL SINUS RHYTHM SEPTAL INFARCT , AGE UNDETERMINED ABNORMAL ECG WHEN COMPARED WITH ECG OF 29-MAR-2019 06:18, NO SIGNIFICANT CHANGE WAS FOUND Confirmed by MARISOL GHOTRA MD ([id number]) on 03/29/2019 4:44:12 PM Referred By: Confirmed By:MARISOL GHOTRA MD
[2019-03-29] MEDS ORDERED: BROMFENAC SODIUM OS SCH (16:45)
--- NOTE | 2019-03-29 16:47 | EKG ---
Test Reason : Blood Pressure : / mmHG Vent. Rate : 072 BPM Atrial Rate : 072 BPM P-R Int : 180 ms QRS Dur : 094 ms QT Int : 390 ms P-R-T Axes : 064 020 034 degrees QTc Int : 427 ms NORMAL SINUS RHYTHM NORMAL ECG WHEN COMPARED WITH ECG OF 28-MAR-2019 01:31, NO SIGNIFICANT CHANGE WAS FOUND Confirmed by MARISOL GHOTRA MD ([id number]) on 03/29/2019 4:46:49 PM Referred By: Confirmed By:MARISOL GHOTRA MD
[2019-03-29] MEDS: INSULIN SLIDING SCALE (NOVOLOG) 1 VIAL SQ SCH ×2 (16:56→22:43)
[2019-03-29] MEDS: SODIUM CHLORIDE 1,000 ML IV SCH (17:06)
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
[2019-03-29] MEDS: ONDANSETRON 4 MG/2 ML VIAL IVPUSH PRN (20:15)
--- NOTE | 2019-03-29 21:15 | HOSP ---
Subjective - Review of Symptoms Events since last encounter: Hospitalist Encounter Notified by the RN that the patient reports having mild chest pain with inspiration. Arrived to bedside Plan: EKG stat Troponin I stat Cardiovascular: Yes: Chest Pain Physical Examination Vital Signs: Vital Signs Temperature 98.1 F 03/29/19 16:00 Pulse Rate 113 H 03/29/19 16:00 Respiratory Rate 20 03/29/19 16:00 Blood Pressure 155/87 03/29/19 16:00 O2 Sat by Pulse Oximetry (%) 98 03/29/19 09:56 Constitutional: Yes: Well Nourished, Anxious, Obese Eyes: Yes: WNL, Conjunctiva Clear, EOM Intact, PERRL HENT: Yes: WNL, Atraumatic, Normocephalic Neck: Yes: WNL, Supple, Trachea Midline Cardiovascular: Yes: WNL, Regular Rate and Rhythm, S1, S2, Other (chest pain is reproducible) Respiratory: Yes: WNL, Regular, CTA Bilaterally Gastrointestinal: Yes: WNL, Normal Bowel Sounds, Soft Renal/: Yes: WNL Breast(s): Yes: WNL Musculoskeletal: Yes: WNL Extremities: Yes: WNL Neurological: Yes: WNL, Alert, Oriented, Cran Nerves II-XII Intact ...Motor Strength: WNL Psychiatric: Yes: WNL, Alert, Oriented Labs: CBC, BMP 03/29/19 06:00 03/29/19 06:00 Hospitalist Encounter Outcome: troponin trending downward, EKG no ST or TWI,
[2019-03-29] MEDS ORDERED: ACETAMINOPHEN 325 MG TABLET (FP) PO ONE (21:48)
[2019-03-29] MEDS ORDERED: LISINOPRIL 5 MG TABLET (FP) PO ONE (21:56)
[2019-03-29] MEDS ORDERED: IMIPRAMINE HCL 50 MG PO SCH (22:00)
[2019-03-29] MEDS: ATORVASTATIN CA 10 MG TABLET (FP) PO SCH (22:41)
[2019-03-29] MEDS: HEPARIN NA (PORCINE) 5,000 UNITS/ML 1ML VIAL SQ SCH (22:43)
[2019-03-29] MEDS: NICOTINE 7 MG/24 HOURS TOPICAL PATCH TD SCH (23:45)
[2019-03-29] MEDS: MELATONIN 5 MG TABLETS PO PRN (23:45)
[2019-03-30] MEDS ORDERED: LORazepam 0.5 MG TABLET PO ONE (05:22)
[2019-03-30] MEDS: ONDANSETRON 4 MG/2 ML VIAL IVPUSH PRN ×3 (05:37→21:50)
[2019-03-30] MEDS: glipiZIDE 5 MG TABLET (FP) PO SCH ×2 (06:19→17:01)
[2019-03-30] MEDS: INSULIN SLIDING SCALE (NOVOLOG) 1 VIAL SQ SCH ×4 (06:19→21:44)
[2019-03-30] MEDS: LEVOTHYROXINE NA 125 MCG TABLET (FP) PO SCH (06:20)
[2019-03-30] MEDS: PIOGLITAZONE HCL 30 MG TABLET (FP) PO SCH (07:01)
[2019-03-30 07:07] LABS: COCAINE, UR NEGATIVE ng/ml (CUTOFF=300); METHADONE, UR NEGATIVE ng/ml (CUTOFF=300); OPIATES, URI NEGATIVE ng/ml (CUTOFF=300); PHENCYCLIDINE,URINE NEGATIVE ng/ml (CUTOFF=25); URINE AMPHETAMINES NEGATIVE ng/ml (CUTOFF=500); URINE BARBITURATES NEGATIVE ng/ml (CUTOFF=200); URINE BENZODIAZEPINES NEGATIVE ng/ml (CUTOFF=200)
[2019-03-30 07:41] LABS: HEMATOCRIT 39.1 % (32.4-45.2); HEMOGLOBIN 13.6 GM/dL (10.7-15.3); MCH 30.3 pg (25.7-33.7); MCHC 34.9 g/dl (32.0-36.0); MEAN CELL VOLUME 86.7 fl (80-96); MEAN PLT VOLUME 9.8 fl (7.5-11.1); PLATELET COUNT 269 K/MM3 (134-434); RBC 4.51 M/mm3 (3.60-5.2); RDW 14.4 % (11.6-15.6); WHITE BLOOD COUNT 7.3 K/mm3 (4.0-10.0)
[2019-03-30 07:53] LABS: ALBUMIN 5.4 g/dl (3.4-5.0); BILIRUBIN,TOTAL 0.8 mg/dL (0.2-1); BLOOD UREA NITROGEN 15.4 mg/dL (7-18); CALCIUM 10.2 mg/dL (8.5-10.1); MAGNESIUM 2.4 mg/dL (1.8-2.4); PHOSPHOROUS 3.3 mg/dL (2.5-4.9); POTASSIUM 3.3 mmol/L (3.5-5.1); TOT PROT 9.6 g/dl (6.4-8.2)
--- NOTE | 2019-03-30 09:58 | PN ---
Progress Note, Physician - Current Medication List Current Medications: Active Medications Atorvastatin Calcium (Lipitor -) 10 mg PO HS SARTHAK Last Admin: 03/29/19 22:41 Dose: 10 mg Clonazepam (Klonopin -) 0.5 mg PO DAILY SARTHAK Glipizide (Glucotrol -) 5 mg PO BIDAC SARTHAK Last Admin: 03/30/19 06:19 Dose: 5 mg Heparin Sodium (Porcine) (Heparin -) 5,000 unit SQ BID SARTHAK Last Admin: 03/29/19 22:43 Dose: 5,000 unit Sodium Chloride (Normal Saline -) 1,000 mls @ 75 mls/hr IV ASDIR SARTHAK Last Admin: 03/29/19 17:06 Dose: 75 mls/hr Ibuprofen (Motrin -) 600 mg PO Q8H PRN PRN Reason: PAIN LEVEL 6-10 Last Admin: 03/29/19 15:48 Dose: 600 mg Insulin Aspart (Novolog Vial Sliding Scale -) 0 vial SQ ACHS [facility]; Protocol Last Admin: 03/30/19 06:19 Dose: Not Given Levothyroxine Sodium (Synthroid -) 125 mcg PO DAILY@0700 [facility] Last Admin: 03/30/19 06:20 Dose: 125 mcg Lisinopril (Prinivil) 5 mg PO DAILY [facility] Melatonin (Melatonin) 5 mg PO HS PRN PRN Reason: INSOMNIA Last Admin: 03/29/19 23:45 Dose: 5 mg Moxifloxacin HCl (Vigamox 0.5% Eye Drops -) 1 drop OU ASDIR SARTHAK Nicotine (Nicoderm Patch -) 7 mg TD DAILY [facility] Last Admin: 03/29/19 23:45 Dose: 7 mg Non-Formulary Medication (Imipramine Hcl [Imipramine Hcl]) 50 mg PO HS [facility] Non-Formulary Medication (Bromfenac Sodium [Prolensa]) 1 drop OS DAILY [facility] Ondansetron HCl (Zofran Injection) 4 mg IVPUSH Q8H PRN PRN Reason: NAUSEA Last Admin: 03/30/19 05:37 Dose: 4 mg Pioglitazone HCl (Actos -) 30 mg PO ACBK [facility] Last Admin: 03/30/19 07:01 Dose: 30 mg Venlafaxine HCl (Effexor Xr -) 150 mg PO DAILY [facility] - Objective Vital Signs: Vital Signs Temperature 99.0 F 03/30/19 04:00 Pulse Rate 86 03/30/19 04:00 Respiratory Rate 18 03/30/19 04:00 Blood Pressure 156/98 03/30/19 04:00 O2 Sat by Pulse Oximetry (%) 99 03/29/19 21:00 Cardiovascular: Yes: Regular Rate and Rhythm Respiratory: Yes: Regular, CTA Bilaterally Gastrointestinal: Yes: Normal Bowel Sounds, Soft Labs: CBC, BMP 03/30/19 06:10 03/30/19 06:00 INR, PTT INR 1.13 (0.83-1.09) H 03/29/19 06:00 Assessment/Plan - Problems (1) Abdominal pain Assessment/Plan: -no abd pain today start diet -GI consult -Abd/pelvic CT scan shows s/p cholecystectomy -IV hydration Code(s): R10.9 - UNSPECIFIED ABDOMINAL PAIN (2) Nausea & vomiting Assessment/Plan: -Resolved -Zofran -IV hydration Code(s): R11.2 - NAUSEA WITH VOMITING, UNSPECIFIED Qualifiers: Vomiting type: unspecified Vomiting Intractability: non-intractable Qualified Code(s): R11.2 - Nausea with vomiting, unspecified (3) Diabetes mellitus Assessment/Plan: -BGM ACHS -ISS -Glipizide and Actos -HgA1c Code(s): E11.9 - TYPE 2 DIABETES MELLITUS WITHOUT COMPLICATIONS Qualifiers: Diabetes mellitus type: type 2 Diabetes mellitus complication status: with unspecified complications (4) HLD (hyperlipidemia) Assessment/Plan: -Simvastatin Code(s): E78.5 - HYPERLIPIDEMIA, UNSPECIFIED Qualifiers: Hyperlipidemia type: unspecified Qualified Code(s): E78.5 - Hyperlipidemia , unspecified (5) HTN (hypertension) Assessment/Plan: -Increase Lisinopril 10 bid -Norvasc mg daily Code(s): I10 - ESSENTIAL (PRIMARY) HYPERTENSION Qualifiers: Hypertension type: unspecified Qualified Code(s): I10 - Essential (primary ) hypertension (6) Hypothyroidism Assessment/Plan: -Levothyroxine Code(s): E03.9 - HYPOTHYROIDISM, UNSPECIFIED Qualifiers: Hypothyroidism type: acquired Qualified Code(s): E03.9 - Hypothyroidism, unspecified (7) Elevated troponin Assessment/Plan: -Cardiology consult noted -tele monitoring -Trop 0.09, 0.07-.04-stress test -monitor troponin Code(s): R74.8 - ABNORMAL LEVELS OF OTHER SERUM ENZYMES (8) Elevated CK Assessment/Plan: -CK 882 -monitor CK level Code(s): R74.8 - ABNORMAL LEVELS OF OTHER SERUM ENZYMES (9) Vaginal bleeding Assessment/Plan: -[employer] consult -Transvaginal US shows myomatous uterus Code(s): N93.9 - ABNORMAL UTERINE AND VAGINAL BLEEDING, UNSPECIFIED
[2019-03-30] MEDS ORDERED: LISINOPRIL 5 MG TABLET (FP) PO SCH (10:00)
[2019-03-30] MEDS: VENLAFAXINE HCL 75 MG E.R. CAPSULES (FP) PO SCH (10:06)
[2019-03-30] MEDS: NICOTINE 7 MG/24 HOURS TOPICAL PATCH TD SCH (10:06)
[2019-03-30] MEDS: HEPARIN NA (PORCINE) 5,000 UNITS/ML 1ML VIAL SQ SCH ×2 (10:06→21:35)
[2019-03-30] MEDS: clonazePAM 0.5 MG TABLET PO SCH (10:06)
[2019-03-30] MEDS: BROMFENAC SODIUM OS SCH (10:09)
--- NOTE | 2019-03-30 10:48 | PN ---
Progress Note (short form) - Note Progress Note: s: no cp sob palps dizzy Current Medications Generic Name Dose Route Start Last Admin Trade Name Freq PRN Reason Stop Dose Admin Amlodipine Besylate 5 mg 03/30/19 10:15 Norvasc - PO DAILY SARTHAK Atorvastatin Calcium 10 mg 03/29/19 22:00 03/29/19 22:41 Lipitor - PO 10 mg HS SARTHAK Administration Clonazepam 0.5 mg 03/30/19 10:00 03/30/19 10:06 Klonopin - PO 0.5 mg DAILY SARTHAK Administration Glipizide 5 mg 03/30/19 07:00 03/30/19 06:19 Glucotrol - PO 5 mg BIDAC SARTHAK Administration Heparin Sodium (Porcine) 5,000 unit 03/29/19 22:00 03/30/19 10:06 Heparin - SQ 5,000 unit BID SARTHAK Administration Sodium Chloride 1,000 mls @ 75 mls/hr 03/29/19 16:45 03/29/19 17:06 Normal Saline - IV 75 mls/hr ASDIR SARTHAK Administration Ibuprofen 600 mg 03/29/19 15:35 03/29/19 15:48 Motrin - PO 600 mg Q8H PRN Administration PAIN LEVEL 6-10 Insulin Aspart 0 vial 03/29/19 16:30 03/30/19 06:19 Novolog Vial Sliding Scale - SQ Not Given ACHS [facility] Protocol Levothyroxine Sodium 125 mcg 03/30/19 07:00 03/30/19 06:20 Synthroid - PO 125 mcg DAILY@0700 SARTHAK Administration Lisinopril 10 mg 03/30/19 10:12 Prinivil PO BID SARTHAK Melatonin 5 mg 03/29/19 23:01 03/29/19 23:45 Melatonin PO 5 mg HS PRN Administration INSOMNIA Moxifloxacin HCl 1 drop 03/29/19 16:45 Vigamox 0.5% Eye Drops - OU ASDIR SARTHAK Nicotine 7 mg 03/29/19 23:06 03/30/19 10:06 Nicoderm Patch - TD 7 mg DAILY SARTHAK Administration Non-Formulary Medication 50 mg 03/29/19 22:00 Imipramine Hcl [Imipramine Hcl] PO HS SARTHAK Non-Formulary Medication 1 drop 03/29/19 23:27 03/30/19 10:09 Bromfenac Sodium [Prolensa] OS 1 drop DAILY SARTHAK Administration Ondansetron HCl 4 mg 03/29/19 11:10 03/30/19 05:37 Zofran Injection IVPUSH 4 mg Q8H PRN Administration NAUSEA Pioglitazone HCl 30 mg 03/30/19 07:00 03/30/19 07:01 Actos - PO 30 mg ACBK SARTHAK Administration Venlafaxine HCl 150 mg 03/30/19 10:00 03/30/19 10:06 Effexor Xr - PO 150 mg DAILY SARTHAK Administration Vital Signs Period Temp Pulse Resp BP Sys/Cerna Pulse Ox Last 24 Hr 98.1 F-99.6 F 81-113 18-20 150-210/83-130 99 Constitutional: Yes: Well Nourished, No Distress, Calm Eyes: Yes: Conjunctiva Clear, EOM Intact HENT: Yes: Atraumatic, Normocephalic Neck: Yes: Supple, Trachea Midline Respiratory: cta bl nl eff Gastrointestinal: Yes: Normal Bowel Sounds, Soft Cardiovascular: Yes: Regular Rate and Rhythm JVD: No Heart Sounds: Yes: S1, S2 Edema: No Peripheral Pulses: 2+ Left Doralis Pedis, 2+ Right Dorsalis Pedis Integumentary: no jaundice diaphoresis Neurological: Yes: Alert, Oriented Psychiatric: Yes: Alert, Oriented CBC, BMP 03/30/19 06:10 03/30/19 06:00 ecg: sr nl intervals no ischemic changes echo 03/2018: nl lv/rv, mild tr tele: sr/sinus tachy a/p: 58F h/o DM, HTN, Hypothyroidism, PTSD, and congenital blindness/cataract p/ w n/v, abd pain. abd pain, n/v: -GI eval in progress + troponin - borderline trop elevation with flat trend and nl ckmb index, similar to prior baseline values, not c/w acs. ECG unremarkable. Check echo. HTN - cont home meds, monitor for now
--- NOTE | 2019-03-30 12:39 | ECHO ---
Name: MILLIE SEAY Exam:Adult Echocardiogram Study Date: 03/30/2019 11:08 AM Age: 58 yrs Reason For Study: HTN Height: 61 in Weight: 200 lb BSA: 1.9 m2 MMode/2D Measurements & Calculations IVSd: 0.92 cm Ao root diam: 2.6 cm LVIDd: 4.2 cm LA dimension: 2.6 cm LVIDs: 2.7 cm LVPWd: 0.75 cm EDV(Teich): 77.4 ml LVOT diam: 2.0 cm ESV(Teich): 28.0 ml Doppler Measurements & Calculations MV E max lit: 45.9 cm/sec Ao V2 max: 121.6 cm/sec MV A max lit: 82.4 cm/sec Ao max P.9 mmHg MV E/A: 0.56 Ao V2 mean: 88.2 cm/sec MV dec time: 0.10 sec Ao mean P.4 mmHg Ao V2 VTI: 21.4 cm RILEY(I,D): 2.6 cm2 RILEY(V,D): 3.3 cm2 LV V1 max P.8 mmHg SV(LVOT): 54.9 ml LV V1 mean P.1 mmHg LV V1 max: 130.0 cm/sec LV V1 mean: 80.8 cm/sec LV V1 VTI: 17.9 cm TR max lit: 195.5 cm/sec Med Peak E' Lit: 5.2 cm/sec TR max P.3 mmHg Med E/e': 8.9 Lat Peak E' Lit: 5.0 cm/sec Lat E/e': 9.2 Procedure A complete two-dimensional transthoracic echocardiogram was performed (2D, M-mode, Doppler and color flow Doppler). Technically limited study. Left Ventricle The left ventricle is normal in size. Left ventricular systolic function is normal. Ejection Fraction = 60- 65%. Grade I diastolic dysfunction, (abnormal relaxation pattern). Ratio E/E'= 9. No regional wall mo tion abnormalities noted. Right Ventricle The right ventricle is normal size. The right ventricular systolic function is normal. Atria The left atrial size is normal. Right atrial size is normal. Mitral Valve The mitral valve is normal in structure and function. There is mild mitral regurgitation. Tricuspid Valve The tricuspid valve is normal in structure and function. There is mild tricuspid regurgitation. Right ventricular systolic pressure is normal. Aortic Valve There is mild aortic sclerosis.;. No aortic regurgitation is present. Pulmonic Valve The pulmonic valve is not well visualized. Great Vessels The aortic root is normal size. Pericardium/Pleura There is no pericardial effusion. Interpretation Summary Technically limited study The left ventricle is normal in size. Left ventricular systolic function is normal. No regional wall motion abnormalities noted. Ejection Fraction = 60-65%. Grade I diastolic dysfunction, (abnormal relaxation pattern). Ratio E/E'= 9 The right ventricular systolic function is normal. The left atrial size is normal. Right atrial size is normal. There is mild mitral regurgitation. There is mild tricuspid regurgitation. Right ventricular systolic pressure is normal. There is mild aortic sclerosis. There is no pericardial effusion. Ry Terrell MD 03/30/2019 12:39 PM
[2019-03-30] MEDS ORDERED: REGADENOSON 0.4 MG/5 ML PRE-FILLED SYRINGE IVPUSH ONE ×2 (13:07→13:15)
--- NOTE | 2019-03-30 13:15 | EKG ---
Test Reason : Blood Pressure : / mmHG Vent. Rate : 090 BPM Atrial Rate : 090 BPM P-R Int : 172 ms QRS Dur : 094 ms QT Int : 384 ms P-R-T Axes : 060 -06 032 degrees QTc Int : 469 ms NORMAL SINUS RHYTHM MINIMAL VOLTAGE CRITERIA FOR LVH, MAY BE NORMAL VARIANT BORDERLINE ECG WHEN COMPARED WITH ECG OF 29-MAR-2019 11:22, NO SIGNIFICANT CHANGE WAS FOUND Confirmed by YEIMY CENTENO MD ([id number]) on 03/30/2019 1:14:55 PM Referred By: Confirmed By:YEIMY CENTENO MD
[2019-03-30] MEDS: amLODIPine BESYLATE 5 MG TABLET (FP) PO SCH (14:25)
[2019-03-30] MEDS: MOXIFLOXACIN HCL 0.5% OPHTHALMIC 3 ML BOTTLE OU SCH ×3 (17:56→21:38)
[2019-03-30] MEDS: SODIUM CHLORIDE 1,000 ML IV SCH (17:57)
[2019-03-30] MEDS: LISINOPRIL 10 MG TABLET (FP) PO SCH (21:33)
[2019-03-30] MEDS: ATORVASTATIN CA 10 MG TABLET (FP) PO SCH (21:34)
[2019-03-30] MEDS: MELATONIN 5 MG TABLETS PO PRN (21:34)
[2019-03-31] MEDS ORDERED: LORazepam 0.5 MG TABLET PO ONE (04:14)
[2019-03-31] MEDS: ONDANSETRON 4 MG/2 ML VIAL IVPUSH PRN ×2 (04:20→10:10)
[2019-03-31] MEDS: LEVOTHYROXINE NA 125 MCG TABLET (FP) PO SCH (06:27)
[2019-03-31] MEDS: glipiZIDE 5 MG TABLET (FP) PO SCH (06:28)
[2019-03-31] MEDS: PIOGLITAZONE HCL 30 MG TABLET (FP) PO SCH (06:28)
[2019-03-31] MEDS: INSULIN SLIDING SCALE (NOVOLOG) 1 VIAL SQ SCH ×2 (06:28→12:02)
[2019-03-31] MEDS ORDERED: PT OWN MED DRAWER 7, Y5N ONE (09:58)
[2019-03-31] MEDS: VENLAFAXINE HCL 75 MG E.R. CAPSULES (FP) PO SCH (10:13)
[2019-03-31] MEDS: amLODIPine BESYLATE 5 MG TABLET (FP) PO SCH (10:13)
[2019-03-31] MEDS: clonazePAM 0.5 MG TABLET PO SCH (10:14)
[2019-03-31] MEDS: NICOTINE 7 MG/24 HOURS TOPICAL PATCH TD SCH (10:14)
[2019-03-31] MEDS: HEPARIN NA (PORCINE) 5,000 UNITS/ML 1ML VIAL SQ SCH (10:14)
[2019-03-31] MEDS: LISINOPRIL 10 MG TABLET (FP) PO SCH (10:14)
[2019-03-31] MEDS: BROMFENAC SODIUM OS SCH (10:14)
[2019-03-31] MEDS: MOXIFLOXACIN HCL 0.5% OPHTHALMIC 3 ML BOTTLE OU SCH (10:15)
--- NOTE | 2019-03-31 11:14 | PN ---
Progress Note, Physician Chief Complaint: Nausea/Vomiting Vaginal bleed elevated troponin - Current Medication List Current Medications: Active Medications Amlodipine Besylate (Norvasc -) 5 mg PO DAILY [facility] Last Admin: 03/31/19 10:13 Dose: 5 mg Atorvastatin Calcium (Lipitor -) 10 mg PO HS [facility] Last Admin: 03/30/19 21:34 Dose: 10 mg Clonazepam (Klonopin -) 0.5 mg PO DAILY [facility] Last Admin: 03/31/19 10:14 Dose: 0.5 mg Glipizide (Glucotrol -) 5 mg PO BIDAC [facility] Last Admin: 03/31/19 06:28 Dose: 5 mg Heparin Sodium (Porcine) (Heparin -) 5,000 unit SQ BID [facility] Last Admin: 03/31/19 10:14 Dose: 5,000 unit Insulin Aspart (Novolog Vial Sliding Scale -) 0 vial SQ ACHS [facility]; Protocol Last Admin: 03/31/19 06:28 Dose: Not Given Levothyroxine Sodium (Synthroid -) 125 mcg PO DAILY@0700 [facility] Last Admin: 03/31/19 06:27 Dose: 125 mcg Lisinopril (Prinivil) 10 mg PO BID [facility] Last Admin: 03/31/19 10:14 Dose: 10 mg Melatonin (Melatonin) 5 mg PO HS PRN PRN Reason: INSOMNIA Last Admin: 03/30/19 21:34 Dose: 5 mg Moxifloxacin HCl (Vigamox 0.5% Eye Drops -) 1 drop OU QID [facility] Last Admin: 03/31/19 10:15 Dose: 1 drop Nicotine (Nicoderm Patch -) 7 mg TD DAILY [facility] Last Admin: 03/31/19 10:14 Dose: 7 mg Non-Formulary Medication (Imipramine Hcl [Imipramine Hcl]) 50 mg PO HS [facility] Last Admin: 03/30/19 21:36 Dose: 50 mg Non-Formulary Medication (Bromfenac Sodium [Prolensa]) 1 drop OS DAILY [facility] Last Admin: 03/31/19 10:14 Dose: 1 drop Ondansetron HCl (Zofran Injection) 4 mg IVPUSH Q8H PRN PRN Reason: NAUSEA Last Admin: 03/31/19 04:20 Dose: 4 mg Pioglitazone HCl (Actos -) 30 mg PO ACBK [facility] Last Admin: 10/01/19 06:28 Dose: 30 mg Venlafaxine HCl (Effexor Xr -) 150 mg PO DAILY SARTHAK Last Admin: 03/31/19 10:13 Dose: 150 mg - Objective Vital Signs: Vital Signs Temperature 99 F 03/31/19 06:00 Pulse Rate 95 H 03/31/19 06:00 Respiratory Rate 20 03/31/19 06:00 Blood Pressure 146/81 03/31/19 06:00 O2 Sat by Pulse Oximetry (%) 100 03/30/19 21:00 Constitutional: Yes: Well Nourished, No Distress, Calm, Obese Cardiovascular: Yes: Regular Rate and Rhythm Respiratory: Yes: Regular Gastrointestinal: Yes: Normal Bowel Sounds, Soft, Abdomen, Obese Musculoskeletal: Yes: WNL Extremities: Yes: WNL Edema: No Peripheral Pulses WNL: Yes Neurological: Yes: Alert, Oriented Psychiatric: Yes: Alert, Oriented Labs: CBC, BMP 03/30/19 06:10 03/30/19 06:00 INR, PTT INR 1.13 (0.83-1.09) H 03/29/19 06:00 Assessment/Plan (1) Abdominal pain Assessment/Plan: -tolerating PO intake -GI consult -Abd/pelvic CT scan shows s/p cholecystectomy Code(s): R10.9 - UNSPECIFIED ABDOMINAL PAIN (2) Nausea & vomiting Assessment/Plan: -Resolved -Zofran PRN Code(s): R11.2 - NAUSEA WITH VOMITING, UNSPECIFIED Qualifiers: Vomiting type: unspecified Vomiting Intractability: non-intractable Qualified Code(s): R11.2 - Nausea with vomiting, unspecified (3) Diabetes mellitus Assessment/Plan: -BGM ACHS -ISS -Continue Glipizide -HgA1c 5.8 -D/C Actose, can also lead to CK elevation Code(s): E11.9 - TYPE 2 DIABETES MELLITUS WITHOUT COMPLICATIONS Qualifiers: Diabetes mellitus type: type 2 Diabetes mellitus complication status: with unspecified complications (4) HLD (hyperlipidemia) Assessment/Plan: -Simvastatin-change to atorvastatin Code(s): E78.5 - HYPERLIPIDEMIA, UNSPECIFIED Qualifiers: Hyperlipidemia type: unspecified Qualified Code(s): E78.5 - Hyperlipidemia , unspecified (5) HTN (hypertension) Assessment/Plan: -Increase Lisinopril 10 bid -Norvasc mg daily Code(s): I10 - ESSENTIAL (PRIMARY) HYPERTENSION Qualifiers: Hypertension type: unspecified Qualified Code(s): I10 - Essential (primary ) hypertension (6) Hypothyroidism Assessment/Plan: -Levothyroxine Code(s): E03.9 - HYPOTHYROIDISM, UNSPECIFIED Qualifiers: Hypothyroidism type: acquired Qualified Code(s): E03.9 - Hypothyroidism, unspecified (7) Elevated troponin Assessment/Plan: -Cardiology consult noted -tele monitoring -ecg: sr nl intervals no ischemic changes -echo 03/2018: nl lv/rv, mild tr -repeat echo-unremarkable, normal LVEF at 60-65% -Stress test negative Code(s): R74.8 - ABNORMAL LEVELS OF OTHER SERUM ENZYMES (8) Elevated CK Assessment/Plan: -CK 882 -Lower than prior CK levels Code(s): R74.8 - ABNORMAL LEVELS OF OTHER SERUM ENZYMES (9) Vaginal bleeding Assessment/Plan: -INTEGRITY ENGINEER consult -Transvaginal US shows myomatous uterus -Likely f/u o/p Code(s): N93.9 - ABNORMAL UTERINE AND VAGINAL BLEEDING, UNSPECIFIED
--- NOTE | 2019-03-31 11:28 | DS ---
Physical Examination Vital Signs: Vital Signs Temperature 99 F 03/31/19 06:00 Pulse Rate 95 H 03/31/19 06:00 Respiratory Rate 20 03/31/19 06:00 Blood Pressure 146/81 03/31/19 06:00 O2 Sat by Pulse Oximetry (%) 100 03/30/19 21:00 Findings/Remarks: Patient is a 58 y/o female with past medical history of anxiety, HTN, DM, congenital blindness, PTSD. Patient presented to ER with complaints of epigastric pain with nausea and vomiting. Patient states on Saturday she drank "spoiled milk" and vomited one time. After patient began to develop epigastric pain accompanied with nausea and bilious, non-bloody vomiting. Patient has poor appetite and was unable to keep food down. She also states having vaginal bleeding 1 month ago. Constitutional: Yes: Well Nourished, No Distress, Calm, Obese Cardiovascular: Yes: Regular Rate and Rhythm Respiratory: Yes: Regular Gastrointestinal: Yes: Normal Bowel Sounds, Soft, Abdomen, Obese Renal/: Yes: WNL Musculoskeletal: Yes: WNL Extremities: Yes: WNL Edema: No Peripheral Pulses WNL: Yes Neurological: Yes: Alert, Oriented Psychiatric: Yes: Alert, Oriented Labs: CBC, BMP 03/30/19 06:10 03/30/19 06:00 Discharge Summary Problems reviewed: Yes Reason For Visit: ABD PAIN/VOMITING Current Active Problems Abdominal pain (Acute) Elevated troponin (Acute) Nausea & vomiting (Acute) Vaginal bleeding (Acute) Laboratory Last Values WBC 7.3 K/mm3 (4.0-10.0) 03/30/19 06:10 RBC 4.51 M/mm3 (3.60-5.2) 03/30/19 06:10 Hgb 13.6 GM/dL (10.7-15.3) 03/30/19 06:10 Hct 39.1 % (32.4-45.2) 03/30/19 06:10 MCV 86.7 fl (80-96) 03/30/19 06:10 MCH 30.3 pg (25.7-33.7) 03/30/19 06:10 MCHC 34.9 g/dl (32.0-36.0) 03/30/19 06:10 RDW 14.4 % (11.6-15.6) 03/30/19 06:10 Plt Count 269 K/MM3 (134-434) 03/30/19 06:10 MPV 9.8 fl (7.5-11.1) 03/30/19 06:10 Absolute Neuts (auto) 4.6 K/mm3 (1.5-8.0) 03/29/19 06:00 Neutrophils % 61.0 % (42.8-82.8) 03/29/19 06:00 Lymphocytes % 32.0 % (8-40) D 03/29/19 06:00 Monocytes % 5.6 % (3.8-10.2) 03/29/19 06:00 Eosinophils % 0.1 % (0-4.5) D 03/29/19 06:00 Basophils % 1.3 % (0-2.0) 03/29/19 06:00 Nucleated RBC % 0 % (0-0) 03/29/19 06:00 PT with INR 13.30 SEC (9.7-13.0) H 03/29/19 06:00 INR 1.13 (0.83-1.09) H 03/29/19 06:00 PTT (Actin FS) 30.6 SECONDS (25.2-36.5) 03/29/19 06:00 Sodium 136 mmol/L (136-145) 03/30/19 06:00 Potassium 3.3 mmol/L (3.5-5.1) L 03/30/19 06:00 Chloride 98 mmol/L (98-107) 03/30/19 06:00 Carbon Dioxide 25 mmol/L (21-32) 03/30/19 06:00 Anion Gap 13 MMOL/L (8-16) 03/30/19 06:00 BUN 15.4 mg/dL (7-18) 03/30/19 06:00 Creatinine 1.0 mg/dL (0.55-1.3) 03/30/19 06:00 Est GFR (CKD-EPI)AfAm 72.93 03/30/19 06:00 Est GFR (CKD-EPI)NonAf 62.93 03/30/19 06:00 POC Glucometer 166 UNITS (80-120) 03/31/19 05:32 Random Glucose 120 mg/dL (74-106) H 03/30/19 06:00 Hemoglobin A1c % 5.8 % (4.2-6.3) 03/30/19 06:10 Calcium 10.2 mg/dL (8.5-10.1) H 03/30/19 06:00 Phosphorus 3.3 mg/dL (2.5-4.9) 03/30/19 06:00 Magnesium 2.4 mg/dL (1.8-2.4) 03/30/19 06:00 Total Bilirubin 0.8 mg/dL (0.2-1) 03/30/19 06:00 AST 49 U/L (15-37) H 03/30/19 06:00 ALT 61 U/L (13-61) 03/30/19 06:00 Alkaline Phosphatase 95 U/L (45-117) 03/30/19 06:00 Creatine Kinase 730 U/L (26-192) H 03/30/19 06:00 Creatine Kinase Index 0.9 % (0.0-5.0) 03/30/19 06:00 CK-MB (CK-2) 6.9 ng/mL (0.5-3.6) H 03/30/19 06:00 Troponin I 0.04 ng/ml (0.00-0.05) 03/30/19 06:00 Total Protein 9.6 g/dl (6.4-8.2) H 03/30/19 06:00 Albumin 5.4 g/dl (3.4-5.0) H 03/30/19 06:00 Triglycerides 131 mg/dL (0-150) 03/30/19 06:00 Cholesterol 180 mg/dL (50-200) 03/30/19 06:00 Total LDL Cholesterol 100 mg/dL (5-100) 03/30/19 06:00 HDL Cholesterol 54 mg/dL (40-60) 03/30/19 06:00 Lipase 52 U/L (73-393) L 03/29/19 06:00 TSH 2.22 uIU/ml (0.358-3.74) 03/30/19 06:00 Urine Color Yellow 03/29/19 07:00 Urine Appearance Clear 03/29/19 07:00 Urine pH 7.0 (5.0-8.0) 03/29/19 07:00 Ur Specific [place] 1.025 (1.010-1.035) 03/29/19 07:00 Urine Protein 3+ (NEGATIVE) H 03/29/19 07:00 Urine Glucose (UA) Negative (NEGATIVE) 03/29/19 07:00 Urine Ketones 2+ (NEGATIVE) H 03/29/19 07:00 Urine Blood 2+ (NEGATIVE) H 03/29/19 07:00 Urine Nitrite Negative (NEGATIVE) 03/29/19 07:00 Urine Bilirubin 1+ (NEGATIVE) H 03/29/19 07:00 Urine Urobilinogen 1.0 mg/dL (0.2-1.0) 03/29/19 07:00 Ur Leukocyte Esterase Negative (NEGATIVE) 03/29/19 07:00 Opiates Screen Negative ng/ml (FXMCQT=053) 03/30/19 06:37 Methadone Screen Negative ng/ml (GKSMCW=421) 03/30/19 06:37 Barbiturate Screen Negative ng/ml (EUATGP=312) 03/30/19 06:37 Phencyclidine Screen Negative ng/ml (CUTOFF=25) 03/30/19 06:37 Ur Amphetamines Screen Negative ng/ml (HHMKMR=981) 03/30/19 06:37 MDMA (Ecstasy) Screen Negative ng/ml (DQOXEF=131) 03/30/19 06:37 Benzodiazepines Screen Negative ng/ml (WEIEMJ=535) 03/30/19 06:37 Cocaine Screen Negative ng/ml (DKQTZK=923) 03/30/19 06:37 U Marijuana (THC) Screen Negative ng/ml (CUTOFF=50) 03/30/19 06:37 Microbiology 03/29/19 07:00 Urine - Urine Clean Catch Urine Culture - Final Normal Urogenital Martha Vital Signs Temp 99 F 03/31/19 06:00 Pulse 95 H 03/31/19 06:00 Resp 20 03/31/19 06:00 BP 146/81 03/31/19 06:00 Pulse Ox 100 03/30/19 21:00 Intake & Output 03/30/19 03/30/19 03/31/19 11:59 23:59 11:59 Intake Total 240 1020 420 Balance 240 1020 420 Weight 81.828 kg 81.828 kg Intake: IV 600 Normal Saline - 1,000 ml 600 @ 75 mls/hr IV ASDIR [facility] Rx#:[id number] Oral 240 420 420 Other: Voiding Method Toilet Toilet Toilet # Unmeasured Voids Void 2 2 2 Bowel Movement No No Weight Measurement Method Standing Scale Standing Scale Condition: Stable - Instructions Referrals: Yumiko Parson MD [Staff Physician] - Mary Beth Posey DO [Staff Physician] - Kait Page [Primary Care Provider] - Disposition: HOME - Home Medications Comprehensive Discharge Medication List: Ambulatory Orders Acetaminophen/Caffeine [Tension Headache Caplet] 1 each PO ASDIR 03/05/18 Ibuprofen [Motrin -] 600 mg PO TID PRN 03/05/18 Imipramine HCl 50 mg PO HS 03/05/18 Aspirin [ASA -] 325 mg PO DAILY tablet 03/11/18 Venlafaxine HCl ER [Effexor Xr -] 150 mg PO DAILY #30 cap.er.24h 03/13/18 Glipizide 5 mg PO BID #60 tablet 03/16/18 Lisinopril [Zestril] 5 mg PO DAILY #30 tablet 03/16/18 Simvastatin 10 mg PO HS #30 tablet 03/16/18 Acetaminophen 1,000 gm PO TID #30 tab 11/29/18 Bromfenac Sodium [Prolensa] 1 drop OS ASDIR 03/29/19 Clonazepam 1 tab PO DAILY 03/29/19 Levothyroxine [Synthroid -] 125 mcg PO DAILY@0700 03/29/19 Moxifloxacin HCl [Moxifloxacin] 1 drop OU ASDIR 03/29/19 Amlodipine Besylate [Norvasc -] 5 mg PO DAILY #30 tablet 03/31/19 Ondansetron [Zofran *Odt*] 4 mg SL TID PRN #21 od.tablet 03/31/19 Pantoprazole Sodium [Protonix -] 40 mg PO DAILY #30 tablet.ec 03/31/19 Prescription Drug Monitoring Program (I-STOP) results: I-STOP reviewed and no issues identified
[2019-03-31] MEDS ORDERED: PANTOPRAZOLE 40 MG TABLET (FP) PO SCH (11:30)
--- NOTE | 2019-03-31 11:56 | PN ---
Progress Note (short form) - Note Progress Note: s: no cp sob palps dizzy Current Medications Amlodipine Besylate (Norvasc -) 5 mg PO DAILY [facility] Last Admin: 03/31/19 10:13 Dose: 5 mg Atorvastatin Calcium (Lipitor -) 10 mg PO HS [facility] Last Admin: 03/30/19 21:34 Dose: 10 mg Clonazepam (Klonopin -) 0.5 mg PO DAILY [facility] Last Admin: 03/31/19 10:14 Dose: 0.5 mg Glipizide (Glucotrol -) 5 mg PO BIDAC [facility] Last Admin: 03/31/19 06:28 Dose: 5 mg Heparin Sodium (Porcine) (Heparin -) 5,000 unit SQ BID [facility] Last Admin: 03/31/19 10:14 Dose: 5,000 unit Insulin Aspart (Novolog Vial Sliding Scale -) 0 vial SQ ACHS [facility]; Protocol Last Admin: 03/31/19 06:28 Dose: Not Given Levothyroxine Sodium (Synthroid -) 125 mcg PO DAILY@0700 [facility] Last Admin: 03/31/19 06:27 Dose: 125 mcg Lisinopril (Prinivil) 10 mg PO BID [facility] Last Admin: 03/31/19 10:14 Dose: 10 mg Melatonin (Melatonin) 5 mg PO HS PRN PRN Reason: INSOMNIA Last Admin: 03/30/19 21:34 Dose: 5 mg Moxifloxacin HCl (Vigamox 0.5% Eye Drops -) 1 drop OU QID [facility] Last Admin: 03/31/19 10:15 Dose: 1 drop Nicotine (Nicoderm Patch -) 7 mg TD DAILY [facility] Last Admin: 03/31/19 10:14 Dose: 7 mg Non-Formulary Medication (Imipramine Hcl [Imipramine Hcl]) 50 mg PO HS [facility] Last Admin: 03/30/19 21:36 Dose: 50 mg Non-Formulary Medication (Bromfenac Sodium [Prolensa]) 1 drop OS DAILY [facility] Last Admin: 03/31/19 10:14 Dose: 1 drop Ondansetron HCl (Zofran Injection) 4 mg IVPUSH Q8H PRN PRN Reason: NAUSEA Last Admin: 03/31/19 04:20 Dose: 4 mg Pantoprazole Sodium (Protonix -) 40 mg PO DAILY [facility] Venlafaxine HCl (Effexor Xr -) 150 mg PO DAILY [facility] Last Admin: 03/31/19 10:13 Dose: 150 mg Vital Signs Period Temp Pulse Resp BP Sys/Cerna Pulse Ox Last 24 Hr 98.1 F-99.2 F 83-95 20-20 132-179/81-94 100 Constitutional: Yes: Well Nourished, No Distress, Calm Eyes: Yes: Conjunctiva Clear, EOM Intact HENT: Yes: Atraumatic, Normocephalic Neck: Yes: Supple, Trachea Midline Respiratory: cta bl nl eff Gastrointestinal: Yes: Normal Bowel Sounds, Soft Cardiovascular: Yes: Regular Rate and Rhythm JVD: No Heart Sounds: Yes: S1, S2 Edema: No Peripheral Pulses: 2+ Left Doralis Pedis, 2+ Right Dorsalis Pedis Integumentary: no jaundice diaphoresis Neurological: Yes: Alert, Oriented Psychiatric: Yes: Alert, Oriented ecg: sr nl intervals no ischemic changes echo 03/2018: nl lv/rv, mild tr echo 03/2019 nl LV/RV function, grade I diastolic dysfunction mibi 03/2019 no ischemia tele: sr/sinus tachy a/p: 58F h/o DM, HTN, Hypothyroidism, PTSD, and congenital blindness/cataract p/ w n/v, abd pain. abd pain, n/v: -GI eval in progress + troponin - borderline trop elevation with flat trend and nl ckmb index, similar to prior baseline values, not c/w acs. ECG unremarkable. - echo unremarkable, mibi no ischemia - no further cardiac workup as inpatient HTN - cont home meds, monitor for now
[2019-03-31 12:31] VITALS: BP 107/64; PULSE 98; TEMP 98
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
== END 2019-03-31 12:51 | disposition home or self-care (01) | DRG 392 ==
LOC: JER 05:15 → JERBED 10:34 → J4W 12:45
PROVIDERS: ADMIT Family Medicine; ATTEND Family Medicine
DX: R11.2 Nausea with vomiting, unspecified (principal); I10 Essential (primary) hypertension; E11.9 Type 2 diabetes mellitus without complications; F41.9 Anxiety disorder, unspecified; R10.13 Epigastric pain; K44.9 Diaphragmatic hernia without obstruction or gangrene; D25.9 Leiomyoma of uterus, unspecified; F41.8 Other specified anxiety disorders; F43.10 Post-traumatic stress disorder, unspecified; H54.3 Unqualified visual loss, both eyes; E03.9 Hypothyroidism, unspecified; R74.8 Abnormal levels of other serum enzymes; N93.9 Abnormal uterine and vaginal bleeding, unspecified; N95.0 Postmenopausal bleeding; E66.8 Other obesity; Z68.34 Body mass index [BMI] 34.0-34.9, adult; Z89.021 Acquired absence of right finger(s)
CPT/HCPCS: 36415; 74177-TC; 76830-TC; 78452-TC; 80053; 80061; 80307; 81003; 82550; 82553; 82962; 83036; 83690; 83721; 83735; 84100; 84436; 84443; 84484; 85025; 85027; 85610; 85730; 87086; 93005; 93010; 93017; 93306-TC; 99285-25; A9502; G0480; J1644; J2785; J7030

== ENCOUNTER 2023-05-01 01:00 | Observation (INO) | payer MEDICARE, OTHER ==
[2023-05-01 01:40] LABS: EPI CELLS 21 /uL (0-25.1); HYALINE CASTS 4 /uL (0-3.1); PH,URINE 5.5 (5.0-8.0); URINE APPEARANCE CLEAR; URINE BACTERIA 2 /uL (0-1359); URINE BILIRUBIN NEGATIVE (NEGATIVE); URINE COLOR YELLOW; URINE GLUCOSE (UA) NEGATIVE (NEGATIVE); URINE KETONE 2+ (NEGATIVE); URINE LEUK ESTERASE NEGATIVE (NEGATIVE); URINE NITRITE NEGATIVE (NEGATIVE); URINE PROTEIN 3+ (NEGATIVE); URINE RBC 34 /uL (0-23.9); URINE UROBILINOGEN 0.2 mg/dL (0.2-1.0); URINE WBC 23 /uL (0-25.8)
[2023-05-01] MEDS ORDERED: FAMOTIDINE 20 MG TABLET PO ONE (01:53)
[2023-05-01] MEDS ORDERED: ONDANSETRON 4 MG/2 ML VIAL IVPUSH ONE (01:53)
[2023-05-01] MEDS ORDERED: ACETAMINOPHEN 1000 MG/100 ML BAG IVPB ONE (01:53)
[2023-05-01] MEDS ORDERED: SODIUM CHLORIDE 0.9% 500 ML INFUS.BAG IV ONE (01:53)
[2023-05-01] MEDS ORDERED: FAMOTIDINE 20 MG/50 ML IVPB 20 MG/50 ML MG IVPB ONE ×2 (01:59→02:16)
[2023-05-01] MEDS ORDERED: ACETAMINOPHEN INJECTION 100 ML IVPB ONE (02:16)
[2023-05-01] MEDS ORDERED: ONDANSETRON 4 MG/2 ML VIAL ONE (02:16)
[2023-05-01 02:42] LABS: BASO % 0.6 % (0-2.0); EOS % 0.8 % (0-4.5); HEMATOCRIT 39.4 % (32.4-45.2); HEMOGLOBIN 13.5 GM/dL (10.7-15.3); LYMPH % 20.7 % (8-40); MCH 29.2 pg (25.7-33.7); MCHC 34.2 g/dl (32.0-36.0); MEAN CELL VOLUME 85.4 fl (80-96); MEAN PLT VOLUME 8.7 fl (7.5-11.1); MONO % 5.8 % (3.8-10.2); NEUT % 72.1 % (42.8-82.8); PLATELET COUNT 342 10^3/uL (134-434); RBC 4.61 M/mm3 (3.60-5.2); RDW 14.8 % (11.6-15.6); WHITE BLOOD COUNT 11.1 K/mm3 (4.0-10.0)
[2023-05-01 02:48] LABS: INR 1.18 (0.83-1.09); PROTHROMBIN TIME (PATIENT) 13.7 SEC (9.7-13.0)
[2023-05-01 02:51] LABS: ACTIVATED PTT 27.1 SECONDS (25.2-36.5)
[2023-05-01 03:09] LABS: POTASSIUM 3.4 mmol/L (3.5-5.1)
[2023-05-01 03:11] LABS: BLOOD UREA NITROGEN 19.7 mg/dL (7-18); CALCIUM 10.8 mg/dL (8.5-10.1); MAGNESIUM 2.1 mg/dL (1.8-2.4)
[2023-05-01 03:13] LABS: ALBUMIN 5.3 g/dl (3.4-5.0)
[2023-05-01 03:14] LABS: CREATININE 0.9 mg/dL (0.55-1.3)
[2023-05-01 03:16] LABS: BILIRUBIN,TOTAL 0.8 mg/dL (0.2-1); TOT PROT 9.4 g/dl (6.4-8.2)
[2023-05-01 03:22] LABS: LACTIC ACID 2.8 mmol/L (0.4-2.0)
[2023-05-01] MEDS ORDERED: ENALAPRILAT DIHYDRATE 1.25 MG/1 ML VIAL IVPB ONE (06:15)
[2023-05-01] MEDS ORDERED: ENALAPRILAT DIHYDRATE 2.5 MG/2 ML VIAL IVPB ONE (06:25)
[2023-05-01] MEDS ORDERED: CIPROFLOXACIN 400 MG/D5W 400 MG/200 ML IVPB IVPB ONE (07:00)
[2023-05-01] MEDS ORDERED: BACITRACIN 0.9 GM PACKET ONE (08:19)
[2023-05-01] MEDS ORDERED: clonazePAM 0.5 MG TABLET PO ONE ×2 (08:43→17:15)
[2023-05-01] MEDS ORDERED: clonazePAM 0.5 MG TABLET ONE (08:46)
[2023-05-01] MEDS ORDERED: D5-1/2NS+20 MEQ KCL - 20 MEQ/1,000 ML INFUS.BAG IV SCH (12:45)
[2023-05-01 13:02] VITALS: BMI 51.2
[2023-05-01] MEDS ORDERED: amLODIPine BESYLATE 5 MG TABLET (FP) PO ONE (16:55)
[2023-05-01] MEDS: HEPARIN NA (PORCINE) 5,000 UNITS/ML 1ML VIAL SQ SCH (21:29)
[2023-05-01] MEDS ORDERED: IMIPRAMINE HCL 25 MG TABLET (NON FORMULARY) PO SCH (22:00)
[2023-05-01] MEDS ORDERED: ATORVASTATIN CA 10 MG TABLET (FP) PO SCH (22:00)
[2023-05-02] MEDS ORDERED: LORazepam 2 MG/ML SDV VIAL IVPUSH ONE (00:43)
[2023-05-02] MEDS ORDERED: LEVOTHYROXINE NA 125 MCG TABLET (FP) PO SCH (07:00)
[2023-05-02] MEDS: HEPARIN NA (PORCINE) 5,000 UNITS/ML 1ML VIAL SQ SCH (09:58)
[2023-05-02] MEDS ORDERED: PANTOPRAZOLE 40 MG TABLET PO SCH (10:00)
[2023-05-02] MEDS ORDERED: amLODIPine BESYLATE 10 MG TABLET (FP) PO SCH (10:00)
[2023-05-02] MEDS ORDERED: VENLAFAXINE HCL 75 MG E.R. CAPSULES PO SCH (10:00)
[2023-05-02] MEDS ORDERED: amLODIPine BESYLATE 5 MG TABLET (FP) PO SCH (10:00)
[2023-05-02] MEDS ORDERED: clonazePAM 0.5 MG TABLET PO SCH (10:00)
[2023-05-02 11:33] VITALS: PULSE 96; TEMP 98.9
[2023-05-02 12:37] LABS: BASO % 0.7 % (0-2.0); EOS % 0.2 % (0-4.5); HEMATOCRIT 38.9 % (32.4-45.2); HEMOGLOBIN 13.4 GM/dL (10.7-15.3); LYMPH % 41.7 % (8-40); MCH 29.8 pg (25.7-33.7); MCHC 34.5 g/dl (32.0-36.0); MEAN CELL VOLUME 86.5 fl (80-96); MEAN PLT VOLUME 8.5 fl (7.5-11.1); MONO % 7.6 % (3.8-10.2); NEUT % 49.8 % (42.8-82.8); PLATELET COUNT 274 10^3/uL (134-434); RDW 14.7 % (11.6-15.6); WHITE BLOOD COUNT 7.8 K/mm3 (4.0-10.0)
[2023-05-02 13:11] LABS: POTASSIUM 3.2 mmol/L (3.5-5.1)
[2023-05-02 13:14] LABS: ALBUMIN 4.8 g/dl (3.4-5.0); BLOOD UREA NITROGEN 14.4 mg/dL (7-18)
[2023-05-02 13:16] LABS: CALCIUM 10.3 mg/dL (8.5-10.1)
[2023-05-02 13:17] LABS: CREATININE 0.9 mg/dL (0.55-1.3)
[2023-05-02 13:19] LABS: TOT PROT 8.7 g/dl (6.4-8.2)
[2023-05-02 14:37] VITALS: BP 145/85; RESP 18
== END 2023-05-02 15:54 | disposition home or self-care (01) ==
LOC: JER 01:00 → JERBED 08:10 → J6S 11:39
PROVIDERS: ADMIT Family Medicine; ATTEND Family Medicine
PROC: 3E033NZ Introduction of Analgesics, Hypnotics, Sedatives into Peripheral Vein, Percutaneous Approach (ICD-10-PCS; principal; 2023-05-01)
PROC: 3E03329 Introduction of Other Anti-infective into Peripheral Vein, Percutaneous Approach (ICD-10-PCS; 2023-05-01)
PROC: 3E033GC Introduction of Other Therapeutic Substance into Peripheral Vein, Percutaneous Approach (ICD-10-PCS; 2023-05-01)
PROC: 3E023GC Introduction of Other Therapeutic Substance into Muscle, Percutaneous Approach (ICD-10-PCS; 2023-05-01)
PROC: 3E0337Z Introduction of Electrolytic and Water Balance Substance into Peripheral Vein, Percutaneous Approach (ICD-10-PCS; 2023-05-01)
DX: K52.9 Noninfective gastroenteritis and colitis, unspecified (principal); I10 Essential (primary) hypertension; F41.8 Other specified anxiety disorders; E78.5 Hyperlipidemia, unspecified; E11.9 Type 2 diabetes mellitus without complications; Z90.49 Acquired absence of other specified parts of digestive tract; Z89.421 Acquired absence of other right toe(s); R42 Dizziness and giddiness; Z88.0 Allergy status to penicillin; Z88.8 Allergy status to other drugs, medicaments and biological substances; E03.9 Hypothyroidism, unspecified; F17.200 Nicotine dependence, unspecified, uncomplicated
CPT/HCPCS: 0241U-QW; 36415; 74177-TC; 80053; 81003; 82962; 83605; 83690; 83735; 84443; 84484; 85025; 85610; 85730; 86850; 86900; 86901; 87086; 93005; 93010; 96361; 96365; 96367; 96368; 96372; 96375; 96376; 99285-25; G0378; J1644

== ENCOUNTER 2023-05-03 04:29 | Emergency (ER) | payer MEDICARE, OTHER ==
[2023-05-03 04:46] VITALS: BP 211/104; PULSE 100; RESP 20; TEMP 97.3; BMI 25.7
[2023-05-03] MEDS ORDERED: ONDANSETRON 4 MG/2 ML VIAL IVPUSH ONE (05:35)
[2023-05-03] MEDS ORDERED: FAMOTIDINE 20 MG/50 ML IVPB 20 MG/50 ML MG IVPB ONE ×2 (05:36→06:11)
[2023-05-03] MEDS ORDERED: ACETAMINOPHEN 1000 MG/100 ML BAG IVPB ONE (05:36)
[2023-05-03] MEDS ORDERED: SODIUM CHLORIDE 0.9% 500 ML INFUS.BAG IV ONE (05:36)
[2023-05-03] MEDS ORDERED: ACETAMINOPHEN INJECTION 100 ML IVPB ONE (06:11)
[2023-05-03] MEDS ORDERED: ONDANSETRON 4 MG/2 ML VIAL ONE (06:11)
== END 2023-05-03 08:54 | disposition left against medical advice (07) ==
LOC: JER 04:29
PROC: 3E033GC Introduction of Other Therapeutic Substance into Peripheral Vein, Percutaneous Approach (ICD-10-PCS; principal; 2023-05-03)
PROC: 3E033NZ Introduction of Analgesics, Hypnotics, Sedatives into Peripheral Vein, Percutaneous Approach (ICD-10-PCS; 2023-05-03)
PROC: 3E033GC Introduction of Other Therapeutic Substance into Peripheral Vein, Percutaneous Approach (ICD-10-PCS; 2023-05-03)
DX: R10.13 Epigastric pain (principal); R11.2 Nausea with vomiting, unspecified; R19.7 Diarrhea, unspecified
CPT/HCPCS: 93005; 93010; 96365; 96375; 99284-25